=== PATIENT | female | born 1960 | race Caucasian/White ===

== ENCOUNTER → 2017-05-27 17:11 | Outpatient (CLI) | payer MEDICAID, SELFPAY ==
[2017-05-27 19:22] LABS: Amphetamine/Metha Screen,Urine Negative ng/mL (<1000); Barbiturates Screen,Urine Negative ng/mL (<200); Benzodiazepines Screen,Urine Positive ng/mL (200); Cannabinoid Screen,Urine Negative ng/mL (<50); Cocaine Screen,Urine Negative ng/g (<300); Methadone Screen,Urine Positive ng/mL (<300); Opiate Screen,Urine Positive ng/mL (<300); Phencyclidine Screen,Urine Negative ng/mL (<25)
== END ==
PROVIDERS: Visit Provider Emergency Medicine
DX: Z79.899 Other long term (current) drug therapy (principal)
CPT/HCPCS: 80305

== ENCOUNTER → 2017-08-06 11:25 | Outpatient (REF) | payer MEDICAID, SELFPAY ==
[2017-08-06 13:54] LABS: Amphetamine/Metha Screen,Urine Negative ng/mL (<1000); Barbiturates Screen,Urine Negative ng/mL (<200); Benzodiazepines Screen,Urine Positive ng/mL (200); Cannabinoid Screen,Urine Negative ng/mL (<50); Cocaine Screen,Urine Negative ng/g (<300); Methadone Screen,Urine Negative ng/mL (<300); Opiate Screen,Urine Positive ng/mL (<300); Phencyclidine Screen,Urine Negative ng/mL (<25)
== END ==
LOC: LAB 11:25
PROVIDERS: Visit Provider Emergency Medicine
DX: Z79.899 Other long term (current) drug therapy (principal)
CPT/HCPCS: 80305

== ENCOUNTER → 2017-09-04 11:30 | Outpatient (REF) | payer MEDICAID, SELFPAY ==
[2017-09-04 14:43] LABS: Amphetamine/Metha Screen,Urine Negative ng/mL (<1000); Barbiturates Screen,Urine Negative ng/mL (<200); Benzodiazepines Screen,Urine Positive ng/mL (200); Cannabinoid Screen,Urine Negative ng/mL (<50); Cocaine Screen,Urine Negative ng/g (<300); Methadone Screen,Urine Positive ng/mL (<300); Opiate Screen,Urine Positive ng/mL (<300); Phencyclidine Screen,Urine Negative ng/mL (<25)
== END ==
LOC: LAB 11:30
PROVIDERS: Visit Provider Emergency Medicine
DX: Z79.899 Other long term (current) drug therapy (principal)
CPT/HCPCS: 80305

== ENCOUNTER → 2017-10-02 14:59 | Outpatient (REF) | payer MEDICAID, SELFPAY ==
[2017-10-02 18:59] LABS: Amphetamine/Metha Screen,Urine Negative ng/mL (<1000); Barbiturates Screen,Urine Negative ng/mL (<200); Benzodiazepines Screen,Urine Positive ng/mL (200); Cannabinoid Screen,Urine Negative ng/mL (<50); Cocaine Screen,Urine Negative ng/g (<300); Methadone Screen,Urine Negative ng/mL (<300); Opiate Screen,Urine Positive ng/mL (<300); Phencyclidine Screen,Urine Negative ng/mL (<25)
== END ==
LOC: LAB 14:59
PROVIDERS: Visit Provider Emergency Medicine
DX: Z79.899 Other long term (current) drug therapy (principal)
CPT/HCPCS: 80305

== ENCOUNTER → 2017-10-30 16:17 | Outpatient (REF) | payer MEDICAID, SELFPAY ==
[2017-10-30 19:17] LABS: Amphetamine/Metha Screen,Urine Negative ng/mL (<1000); Barbiturates Screen,Urine Negative ng/mL (<200); Benzodiazepines Screen,Urine Positive ng/mL (200); Cannabinoid Screen,Urine Negative ng/mL (<50); Cocaine Screen,Urine Negative ng/g (<300); Methadone Screen,Urine Negative ng/mL (<300); Opiate Screen,Urine Positive ng/mL (<300); Phencyclidine Screen,Urine Negative ng/mL (<25)
== END ==
LOC: LAB 16:17
PROVIDERS: Visit Provider Emergency Medicine
DX: Z79.899 Other long term (current) drug therapy (principal)
CPT/HCPCS: 80305

== ENCOUNTER → 2017-12-04 13:08 | Outpatient (REF) | payer MEDICAID, SELFPAY ==
[2017-12-04 18:35] LABS: Amphetamine/Metha Screen,Urine Negative ng/mL (<1000); Barbiturates Screen,Urine Negative ng/mL (<200); Benzodiazepines Screen,Urine Positive ng/mL (<200); Cannabinoid Screen,Urine Negative ng/mL (<50); Cocaine Screen,Urine Negative ng/mL (<300); Methadone Screen,Urine Negative ng/mL (<300); Opiate Screen,Urine Positive ng/mL (<300); Phencyclidine Screen,Urine Negative ng/mL (<25)
== END ==
LOC: LAB 13:08
PROVIDERS: Visit Provider Emergency Medicine
DX: Z79.899 Other long term (current) drug therapy (principal)
CPT/HCPCS: 80305

== ENCOUNTER → 2018-01-03 13:04 | Outpatient (REF) | payer MEDICAID, SELFPAY ==
[2018-01-03 21:03] LABS: Amphetamine/Metha Screen,Urine Negative ng/mL (<1000); Barbiturates Screen,Urine Negative ng/mL (<200); Benzodiazepines Screen,Urine Positive ng/mL (<200); Cannabinoid Screen,Urine Negative ng/mL (<50); Cocaine Screen,Urine Negative ng/mL (<300); Methadone Screen,Urine Negative ng/mL (<300); Opiate Screen,Urine Positive ng/mL (<300); Phencyclidine Screen,Urine Negative ng/mL (<25)
== END ==
LOC: LAB 13:04
PROVIDERS: Visit Provider Emergency Medicine
DX: Z79.899 Other long term (current) drug therapy (principal)
CPT/HCPCS: 80305

== ENCOUNTER → 2018-02-03 13:26 | Outpatient (REF) | payer MEDICAID, SELFPAY ==
[2018-02-03 18:24] LABS: Amphetamine/Metha Screen,Urine Negative ng/mL (<1000); Barbiturates Screen,Urine Negative ng/mL (<200); Benzodiazepines Screen,Urine Positive ng/mL (<200); Cannabinoid Screen,Urine Negative ng/mL (<50); Cocaine Screen,Urine Negative ng/mL (<300); Methadone Screen,Urine Negative ng/mL (<300); Opiate Screen,Urine Positive ng/mL (<300); Phencyclidine Screen,Urine Negative ng/mL (<25)
== END ==
LOC: LAB 13:26
PROVIDERS: PCP Emergency Medicine; Visit Provider Emergency Medicine
DX: Z79.899 Other long term (current) drug therapy (principal)
CPT/HCPCS: 80305

== ENCOUNTER → 2018-03-04 13:22 | Outpatient (REF) | payer MEDICAID, SELFPAY ==
[2018-03-04 21:07] LABS: Amphetamine/Metha Screen,Urine Negative ng/mL (<1000); Barbiturates Screen,Urine Negative ng/mL (<200); Benzodiazepines Screen,Urine Positive ng/mL (<200); Cannabinoid Screen,Urine Negative ng/mL (<50); Cocaine Screen,Urine Negative ng/mL (<300); Methadone Screen,Urine Negative ng/mL (<300); Opiate Screen,Urine Positive ng/mL (<300); Phencyclidine Screen,Urine Negative ng/mL (<25)
== END ==
LOC: LAB 13:22
PROVIDERS: Visit Provider Emergency Medicine
DX: Z79.899 Other long term (current) drug therapy (principal)
CPT/HCPCS: 80305

== ENCOUNTER → 2018-04-02 18:29 | Outpatient (CLI) | payer MEDICAID, SELFPAY ==
[2018-04-02 21:59] LABS: Amphetamine/Metha Screen,Urine Negative ng/mL (<1000); Barbiturates Screen,Urine Negative ng/mL (<200); Benzodiazepines Screen,Urine Positive ng/mL (<200); Cannabinoid Screen,Urine Negative ng/mL (<50); Cocaine Screen,Urine Negative ng/mL (<300); Methadone Screen,Urine Negative ng/mL (<300); Opiate Screen,Urine Negative ng/mL (<300); Phencyclidine Screen,Urine Negative ng/mL (<25)
== END ==
PROVIDERS: Visit Provider Emergency Medicine
DX: Z79.899 Other long term (current) drug therapy (principal)
CPT/HCPCS: 80305

== ENCOUNTER → 2018-05-02 17:43 | Outpatient (CLI) | payer MEDICAID, SELFPAY ==
[2018-05-02 20:27] LABS: Amphetamine/Metha Screen,Urine Negative ng/mL (<1000); Barbiturates Screen,Urine Negative ng/mL (<200); Benzodiazepines Screen,Urine Positive ng/mL (<200); Cannabinoid Screen,Urine Negative ng/mL (<50); Cocaine Screen,Urine Negative ng/mL (<300); Methadone Screen,Urine Negative ng/mL (<300); Opiate Screen,Urine Negative ng/mL (<300); Phencyclidine Screen,Urine Negative ng/mL (<25)
[2018-05-10 14:00] LABS: Opiates Negative (Cutoff=100)
== END ==
PROVIDERS: Visit Provider Emergency Medicine
DX: Z79.899 Other long term (current) drug therapy (principal)
CPT/HCPCS: 80305; 80361; 80365; G0480

== ENCOUNTER → 2018-05-30 14:22 | Outpatient (CLI) | payer MEDICAID, SELFPAY ==
[2018-05-30 16:08] LABS: Amphetamine/Metha Screen,Urine Negative ng/mL (<1000); Barbiturates Screen,Urine Negative ng/mL (<200); Benzodiazepines Screen,Urine Positive ng/mL (<200); Cannabinoid Screen,Urine Negative ng/mL (<50); Cocaine Screen,Urine Negative ng/mL (<300); Methadone Screen,Urine Negative ng/mL (<300); Opiate Screen,Urine Negative ng/mL (<300); Phencyclidine Screen,Urine Negative ng/mL (<25)
[2018-06-09 08:22] LABS: Opiates Negative (Cutoff=100)
== END ==
PROVIDERS: Visit Provider Nurse Practitioner Family
DX: Z79.899 Other long term (current) drug therapy (principal)
CPT/HCPCS: 80305; 80361; 80365; G0480

== ENCOUNTER → 2018-07-01 14:43 | Outpatient (CLI) | payer MEDICAID, SELFPAY ==
[2018-07-01 15:29] LABS: Amphetamine/Metha Screen,Urine Negative ng/mL (<1000); Barbiturates Screen,Urine Negative ng/mL (<200); Benzodiazepines Screen,Urine Positive ng/mL (<200); Cannabinoid Screen,Urine Negative ng/mL (<50); Cocaine Screen,Urine Negative ng/mL (<300); Methadone Screen,Urine Negative ng/mL (<300); Opiate Screen,Urine Negative ng/mL (<300); Phencyclidine Screen,Urine Negative ng/mL (<25)
[2018-07-01 19:32] LABS: Basophils # 0.1 K/mm3 (0-0.2); Basophils % 0.8 % (0.1-2.0); Eosinophils # 0.1 K/mm3 (0.0-0.4); Eosinophils % 0.8 % (0.1-12.0); Hematocrit 45.9 % (37.0-47.0); Hemoglobin 14.9 g/dL (12.2-16.2); Lymphocytes # 2.1 K/mm3 (0.7-4.5); Lymphocytes % 24.6 % (10-50); Mean Corpuscular HGB Conc 32.4 g/dL (31.8-35.4); Mean Corpuscular Hemoglobin 28.2 pg (27.0-31.2); Mean Corpuscular Volume 87.1 fl (81-99); Monocytes # 0.5 K/mm3 (0.1-1.0); Monocytes % 5.7 % (1.7-9.3); Neutrophils # 5.7 K/mm3 (1.8-7.8); Neutrophils % 68.1 % (37.0-80.0); Platelet Count 513 K/mm3 (142-424); Red Blood Count 5.27 M/mm3 (4.20-5.40); Red Cell Distribution Width 13.6 % (11.5-17.5); White Blood Count 8.4 K/mm3 (4.8-10.8)
[2018-07-01 20:11] LABS: Alanine Aminotransferase 16 U/L (12-78); Albumin Level 4.1 gm/dL (3.4-5.0); Albumin/Globulin Ratio 1.1 (1.1-1.8); Alkaline Phosphatase 134 U/L (46-116); Anion Gap 15.9 mEq/L (5-15); Aspartate Amino Transferase 9 U/L (15-37); Bilirubin,Total 0.4 mg/dL (0.2-1.0); Blood Urea Nitrogen 7 mg/dL (7-18); Calcium 9.6 mg/dL (8.5-10.1); Carbon Dioxide 27 mmol/L (21.0-32.0); Chloride 101 mmol/L (98-107); Chol/HDL Ratio 7.2 (1-3.5); Cholesterol 311 mg/dL (140-200); Creatinine,Serum 0.72 mg/dL (0.55-1.02); Estimated Glomerular Filt Rate 83 ml/min (>60); GFR (African American) 100 ML/MIN (>60); Globulin 3.6 gm/dl (1.3-3.2); Glucose 93 mg/dL (74-106); HDL Cholesterol 43 mg/dL (29-89); LDL Cholesterol 240 mg/dL (0-130); Potassium 3.9 mmoL/L (3.5-5.1); Sodium 140 mmol/L (136-145); T4 (Thyroxine) 7.3 ug/dl (4.7-13.3); Total Protein,Serum 7.7 gm/dL (6.4-8.2); Triglycerides 142 mg/dL (30-200); VLDL Cholesterol 28 mg/dL (0-40)
== END ==
PROVIDERS: Visit Provider Emergency Medicine
DX: Z79.899 Other long term (current) drug therapy (principal)
CPT/HCPCS: 80053; 80061; 80305; 84436; 84443; 85025

== ENCOUNTER → 2018-07-01 18:15 | Outpatient (CLI) | payer MEDICAID, SELFPAY | PROVIDERS: Visit Provider Emergency Medicine | DX: R53.83 Other fatigue (principal); Z79.899 Other long term (current) drug therapy | CPT/HCPCS: 80053; 80061; 84436; 84443; 85025 ==

== ENCOUNTER → 2018-07-28 15:09 | Outpatient (CLI) | payer MEDICAID, SELFPAY ==
--- NOTE | 2018-07-28 15:12 | MR_ITS ---
MR lumbar spine wo con, MR 3-d myelogram/MRCP HISTORY: HX back surgery in 82. RT sided LBP. RT leg pain, numbness and tingling. ITS.REASON: back pain ORDERING PHYSICIAN: Govind Ingram MD PATIENT AGE: 57 years Comparison: MRI 11-28-16. TECHNIQUE: Standard multiplanar multiecho sequences are performed without contrast. 3-D MIP and myelographic images are also rendered and reviewed FINDINGS: Normal alignment. The spinal cord ends at the L1 level. L1-L2 and L2-L3 have an unremarkable appearance. L3-L4: Minimal bulging disc with type II endplate changes anteriorly with mild bilateral lateral recess narrowing from facet and ligamentum flavum hypertrophy. L4-L5: Bulging disc with mild facet and ligamentum flavum hypertrophy with linear increased T2 signal present in the posterior aspect of the disc consistent with an annular fissure similar to the previous exam with mild right paracentral disc protrusion broad-based unchanged. L5-S1: Degenerative disc disease with decrease in the disc space. The remaining isointense T1 and T2 signal in the left paracentral region of the anterior epidural space abutting the left S1 nerve root as before and may be related to a small disc osteophyte complex versus epidural fibrosis. Laminotomy defect noted at that level on the left. No extruded herniated disc or canal stenosis. Overall no significant change from 11/28/2016. IMPRESSION: L3-L4: Minimal bulging disc with type II endplate changes anteriorly with mild bilateral lateral recess narrowing from facet and ligamentum flavum hypertrophy. L4-L5: Bulging disc with mild facet and ligamentum flavum hypertrophy with linear increased T2 signal present in the posterior aspect of the disc consistent with an annular fissure similar to the previous exam with mild right paracentral disc protrusion broad-based unchanged. L5-S1: Degenerative disc disease with decrease in the disc space. The remaining isointense T1 and T2 signal in the left paracentral region of the anterior epidural space abutting the left S1 nerve root as before and may be related to a small disc osteophyte complex versus epidural fibrosis. Laminotomy defect noted at that level on the left. No extruded herniated disc or canal stenosis. Overall no significant change from 11/28/2016.
== END ==
PROVIDERS: PCP Emergency Medicine; Visit Provider Emergency Medicine
DX: G89.29 Other chronic pain (principal); M54.9 Dorsalgia, unspecified
CPT/HCPCS: 72148; 76376

== ENCOUNTER → 2018-10-27 17:28 | Outpatient (CLI) | payer MEDICAID, SELFPAY ==
[2018-10-27 18:45] LABS: Amphetamine/Metha Screen,Urine Negative ng/mL (<1000); Barbiturates Screen,Urine Negative ng/mL (<200); Benzodiazepines Screen,Urine Positive ng/mL (<200); Cannabinoid Screen,Urine Negative ng/mL (<50); Cocaine Screen,Urine Negative ng/mL (<300); Methadone Screen,Urine Negative ng/mL (<300); Opiate Screen,Urine Negative ng/mL (<300); Phencyclidine Screen,Urine Negative ng/mL (<25)
== END ==
PROVIDERS: Visit Provider Emergency Medicine
DX: Z79.899 Other long term (current) drug therapy (principal)
CPT/HCPCS: 80305

== ENCOUNTER → 2019-04-27 16:47 | Outpatient (CLI) | payer OTHER, SELFPAY ==
[2019-04-27 19:11] LABS: Amphetamine/Metha Screen,Urine Negative ng/mL (<1000); Barbiturates Screen,Urine Negative ng/mL (<200); Benzodiazepines Screen,Urine Positive ng/mL (<200); Cannabinoid Screen,Urine Negative ng/mL (<50); Cocaine Screen,Urine Negative ng/mL (<300); Methadone Screen,Urine Negative ng/mL (<300); Opiate Screen,Urine Positive ng/mL (<300); Phencyclidine Screen,Urine Negative ng/mL (<25)
== END ==
PROVIDERS: Visit Provider Emergency Medicine
DX: Z79.899 Other long term (current) drug therapy (principal)
CPT/HCPCS: 80305

== ENCOUNTER → 2019-08-25 11:14 | Outpatient (CLI) | payer OTHER, SELFPAY ==
[2019-08-25 11:46] LABS: Basophils # 0.1 K/mm3 (0-0.2); Basophils % 0.9 % (0.1-2.0); Eosinophils # 0.2 K/mm3 (0.0-0.4); Eosinophils % 2.1 % (0.1-12.0); Hematocrit 41.1 % (37.0-47.0); Hemoglobin 13.2 g/dL (12.2-16.2); Lymphocytes # 2.9 K/mm3 (0.7-4.5); Mean Corpuscular Hemoglobin 27.5 pg (27.0-31.2); Mean Corpuscular Volume 85.7 fl (81-99); Mean Platelet Volume 7.6 fl (7.4-10.4); Monocytes # 0.4 K/mm3 (0.1-1.0); Monocytes % 3.8 % (1.7-9.3); Neutrophils # 5.8 K/mm3 (1.8-7.8); Neutrophils % 62.1 % (37.0-80.0); Platelet Count 464 K/mm3 (142-424); Red Blood Count 4.79 M/mm3 (4.20-5.40); Red Cell Distribution Width 13.9 % (11.5-17.5); White Blood Count 9.4 K/mm3 (4.8-10.8)
[2019-08-25 12:28] LABS: Alanine Aminotransferase 17 U/L (12-78); Albumin Level 4.8 g/dl (3.5-5.0); Albumin/Globulin Ratio 1.7 (1.1-1.8); Alkaline Phosphatase 86 U/L (38-126); Anion Gap 12.6 mEq/L (5-15); Aspartate Amino Transferase 20 U/L (14-36); Bilirubin,Total 0.3 mg/dl (0.2-1.3); Blood Urea Nitrogen 12 mg/dl (7-17); Calcium 10.2 mg/dl (8.4-10.2); Carbon Dioxide 29 mmol/L (22.0-30.0); Chloride 99 mmol/L (98-107); Estimated Glomerular Filt Rate 102 ml/min (>60); GFR (African American) 123 ML/MIN (>60); Globulin 2.9 g/dL (1.3-3.2); Glucose 99 mg/dl (74-100); Potassium 4.6 mmoL/L (3.5-5.1); Sodium 136 mmol/L (136-145); Total Protein,Serum 7.7 g/dl (6.3-8.2)
[2019-08-25 13:44] LABS: Hemoglobin A1C 5.1 % (4.0-6.0)
[2019-08-26 07:33] LABS: Vitamin D 25 Hydroxy 11.3 ng/mL (30.0-100.0)
[2019-08-26 07:34] LABS: Hepatitis C Antibody <0.1 s/co ratio (0.0-0.9); Vitamin B12 816 pg/mL (232-1245)
[2019-08-26 15:59] LABS: Rapid Plasma Reagin Ab Titer Non Reactive (NonRea<1:1)
== END ==
PROVIDERS: Visit Provider Nurse Practitioner Family
DX: R20.2 Paresthesia of skin (principal); E55.9 Vitamin D deficiency, unspecified
CPT/HCPCS: 36415; 80053; 82607; 82652; 83036; 85025; 86592; 87380

== ENCOUNTER → 2019-09-03 14:04 | Outpatient (CLI) | payer OTHER, SELFPAY ==
--- NOTE | 2019-09-03 14:08 | CT_ITS ---
PROCEDURE: CT LUNG SCREENING CLINICAL INDICATION: CURRENT TOBACCO USE Forty-five pack-year smoking history, asymptomatic for lung cancer COMPARISON: No exams were available for comparison TECHNIQUE: The exam was performed on a GE Light Speed [address] scanner using 2.90 mGy CTDI. A low dose helical CT CHEST was performed on a multi-detector scanner. All CT scans at the facility use one or more dose reduction, viz: automated exposure control, ma/kV adjustment per patient size (including targeted exams where dose is matched to indication, i.e. head), or iterative reconstruction technique. The LDCT was performed in a facility that meets the criteria for the screening program. Data regarding this exam was submitted to ACR which is an approved registry. The order for this exam indicates that it came as a result of a lung cancer screening counseling shard decision-making visit that included all the elements required of such a visit including smoking cessation. The radiologist interpreting this exam meets the [facility] criteria for the LDCT lung cancer screening program. The exam is reported using the Lung-RADS classification scale and reported to the ACR registry. NOTE: This study was performed for the specific purposes of lung cancer screening and is not an alternative to diagnostic chest CT. RADIATION DOSE: CTDI vol(CT dose Index-volume) = 2.90mG DLP (Dose Length Product) = 103.68 mGcm Lung Rads Category: FINDINGS: Changes of COPD. Calcified granuloma right apex. There is an adjacent nodular density just superior to the granuloma measuring 8 mm. This could even be due to some adjacent scarring. 3 mm noncalcified nodule right middle lobe. 3 mm nodule right lower lobe posterior laterally at image number 45. Scattered calcified granulomas OTHER FINDINGS: Kyphosis of the thoracic spine with mild wedging of T5-T6 and T7 which may be chronic. Coronary artery calcifications. IMPRESSION: Lung rads category 3, probably benign. Recommend six-month CT follow-up without and with contrast Dictated by: Maoc Ordoñez MD 09/13/2019 10:44 Electronically signed by Maco Ordoñez MD in [place] 09/13/2019 10:44
--- NOTE | 2019-09-03 14:08 | XR_ITS ---
PROCEDURE: XR DEXA AXIAL SKELETON CLINICAL HISTORY: SCREENING COMPARISON: No exams were available for comparison FINDINGS: Left femoral neck density is 0.657 grams/centimeters sq with T-score -1.7 Right femoral neck density is 0.739 grams/centimeters sq with a T-score of -1.0. L1-L4 density has a bone density 0.805 grams/centimeters sq with T-score of -2.2. IMPRESSION: Osteopenia with moderate fracture risk. Treatment advised. Suggest follow-up exam in 2 years. Dictated by: Mcao Ordoñez MD 09/03/2019 15:24 Electronically signed by Maco Ordoñez MD in [place] 09/03/2019 15:24
--- NOTE | 2019-09-03 14:08 | MM_ITS ---
PROCEDURE: MM DIG SCREENING MAMM BI W/CAD Digital Breast Tomosynthesis Included CLINICAL INDICATION: SCREENING There is no personal or family history of breast cancer COMPARISON: Patient had previous mammograms at [facility] but they apparently have been purged TECHNIQUE: Standard CC and MLO images and 3D Tomosynthesis was obtained. R2 CAD reviewed. FINDINGS: Moderate fibroglandular densities are seen in the central portions and subareolar regions of both breasts. There are scattered benign-appearing calcifications in each breast. Stomal images were reviewed and there is no suspicious lesion in either breast. There are no suspicious microcalcifications. IMPRESSION: Moderate breast density with no suspicious lesions seen BI-RAD Category: 2 Benign Finding(s) FOLLOW-UP: 1YR 1 Year Follow-up (A letter has been sent to the patient regarding results of the study.) Dictated by: Dr. Juan Grullon MD 09/04/2019 11:[address] Juan Grullon MD in [place] 09/04/2019 11:58
== END ==
PROVIDERS: PCP Emergency Medicine; Visit Provider Nurse Practitioner Family
DX: Z12.31 Encounter for screening mammogram for malignant neoplasm of breast (principal); Z87.891 Personal history of nicotine dependence; Z12.2 Encounter for screening for malignant neoplasm of respiratory organs; Z13.820 Encounter for screening for osteoporosis; Z78.0 Asymptomatic menopausal state
CPT/HCPCS: 77063; 77067; 77080

== ENCOUNTER 2020-01-26 04:44 | Emergency (ER) | payer OTHER, SELFPAY ==
[2020-01-26 04:48] VITALS: BP 127/91; PULSE 101; RESP 16; TEMP 36.8; O2SAT 97; BMI 22.1
--- NOTE | 2020-01-26 05:09 | XR_ITS ---
PROCEDURE: XR CHEST 2V CLINICAL HISTORY: fall Posttraumatic pain COMPARISON: CR CXR CHEST(2 VIEWS-NOT PORTABLE) from 01/06/2016 CR CXR CHEST(2 VIEWS-NOT PORTABLE) from 06/22/2016 CR CXR CHEST(2 VIEWS-NOT PORTABLE) from 10/01/[address] LUNG SCREENING from 09/03/2019 FINDINGS: The cardiomediastinal silhouette and pulmonary vascularity are within normal limits. Calcified granulomas present in the right upper lobe. There is a faint nodular opacity in left upper lobe at the 1st interspace nonspecific possibly due to summation artifact. Cannot exclude developing nodule. Follow-up suggested. The remaining lungs are clear. There is mild thoracic and lumbar scoliosis convex left. IMPRESSION: Old granulomatous disease with possible new nodule in the left upper lobe. Follow-up suggested Dictated by: Maco Ordoñez MD 01/26/2020 06:05 Maco Ordoñez MD in [place] 01/26/2020 06:05
--- NOTE | 2020-01-26 05:09 | XR_ITS ---
PROCEDURE: XR FEMUR LT 2V CLINICAL INDICATION: fall Posttraumatic pain COMPARISON: CR XR PELVIS 1-2V from 01/26/2020 FINDINGS: No fracture or dislocation. No lytic or blastic change. There is normal mineralization. Mild osteoarthritic changes with bony hypertrophy of the acetabulum. Mild degenerative changes of the knee. Other findings:None. IMPRESSION: No acute findings. Dictated by: Maco Ordoñez MD 01/26/2020 06:00 Maco Ordoñez MD in [place] 01/26/2020 06:00
--- NOTE | 2020-01-26 05:14 | [facility].EDGENADL ---
ED Disposition Clinical Impression: Traumatic injury of hip Disposition: Home, Self-Care Condition on Discharge: Good Referrals: Govind Ingram MD [Primary Care Provider] - - Critical Care Critical Care Time: No Attestation: On 01/26/20, the high probability of a clinically significant, sudden or life threatening deterioration of the following system(s) required my full and direct attention, intervention and personal management. The time I documented below is in addition to time spent performing reported procedures but includes the following listed in this critical care notation. Medical Decision Making - Medical Records Medical records reviewed: Yes: I reviewed the patient's medical records. - Amos Inquiry Pt receiving controlled substance: No Vital Signs: 01/26/20 04:48 Temperature 98.2 F Temperature Source Oral Pulse Rate [Right Radial] 101 H Respiratory Rate 16 Blood Pressure [Right Arm] 127/91 H Blood Pressure Mean [Right Arm] 103 Blood Pressure Source [Right Arm] Automatic Cuff Blood Pressure Position [Right Arm] Supine 02 Sat by Pulse Oximetry 97 Oxygen Delivery Method Room Air Medical Decision Narrative: In summary 59-year-old female presents for fall. Patient had no loss consciousness, patient is Bradley head CT criteria does not require head imaging at this time. Nontender midline spine. Patient able to ambulate. Normal strength in lower extremities. Patient had x-rays performed. These returned negative for acute fracture. Patient was discharged home with return precautions, to follow-up with her primary care doctor for further work-up. General Adult HPI - General Chief complaint: Fall Stated complaint: AO 01/26/20 Back pain,left hip pain,left rib pain Time Seen by Provider: 01/26/20 05:15 Mode of Arrival: Ambulatory Limitations: No Limitations Description of Symptoms (Recalled from ER Triage Doc. by RN): Pt states she fell at home around 0300 and has c/o pain to left buttock/hip up to her mid back. Pt states she hit her head, denies LOC or pain to head or neck. - History of Present Illness HPI narrative: 59-year-old female past medical history of prior spinal surgery, IV opiate abuse, patient presenting for falls. Patient has had episode of fall this morning, from standing, did hit head but no loss of consciousness, patient is not on blood thinners. Patient complains of pain in her left posterior ribs and left hip. Patient has been able to ambulate, was able to ambulate into the ER this morning. - Related Data Home Medications Medication Instructions Recorded Confirmed aspirin 81 mg tablet,delayed 81 mg PO QDAY 05/27/17 12/11/19 release polyethylene glycol 3350 17 PO DAILY g 02/03/18 12/11/19 gram/dose oral powder duloxetine 60 mg capsule,delayed 60 mg PO DAILY cap 09/08/19 12/11/19 release ergocalciferol (vitamin D2) 1,250 50,000 unit PO QWEEK cap 09/08/19 12/11/19 mcg (50,000 unit) capsule methocarbamol 750 mg tablet 750 mg PO Q8H tab 09/08/19 12/11/19 pantoprazole 40 mg tablet,delayed 40 mg PO DAILY tab 09/08/19 12/11/19 release metoprolol tartrate 25 mg tablet 25 mg PO BID tab 12/11/19 12/11/19 Previous Rx's Medication Instructions Recorded atorvastatin 10 mg tablet 10 mg PO QHS #90 tab 07/02/18 quetiapine 100 mg tablet 100 mg PO QHS #30 tab 07/27/19 cyclobenzaprine 10 mg tablet 10 mg PO BID PRN #14 tab 10/13/19 diclofenac sodium 75 mg See Rx Instructions .ROUTE 10/20/19 tablet,delayed release .COMPLEX #90 unspecified diazepam 10 mg tablet 10 mg PO TID PRN #90 tab 12/11/19 gabapentin 800 mg tablet 800 mg PO TID #90 tab 12/11/19 hydroxyzine pamoate 50 mg capsule See Rx Instructions .ROUTE 01/06/20 .COMPLEX #90 unspecified Allergies Allergy/AdvReac Type Severity Reaction Status Date / Time No Known Allergies Allergy Verified 12/11/19 14:54 [facility] History - Hepatitis A Screen Drug use history?: No High risk sexual behavior
[2020-01-26 06:20] VITALS: BP 131/87; PULSE 91; RESP 16; TEMP 36.7; O2SAT 98
== END 2020-01-26 06:22 | disposition home or self-care (01) ==
PROVIDERS: Emergency Provider Emergency Medicine; PCP Emergency Medicine
DX: S70.02XA Contusion of left hip, initial encounter (principal); W01.0XXA Fall on same level from slipping, tripping and stumbling without subsequent striking against object, initial encounter; Y92.019 Unspecified place in single-family (private) house as the place of occurrence of the external cause; F41.8 Other specified anxiety disorders; E78.5 Hyperlipidemia, unspecified; K21.9 Gastro-esophageal reflux disease without esophagitis; F17.210 Nicotine dependence, cigarettes, uncomplicated
CPT/HCPCS: 71046; 72170; 73552; 99282

== ENCOUNTER → 2020-05-18 15:06 | Outpatient (CLI) | payer OTHER, SELFPAY ==
--- NOTE | 2020-05-18 15:06 | MR_ITS ---
PROCEDURE: MR LUMBAR SPINE WO CON 3D MR myelogram volume rendering image set included Referring Doctor: Govind Ingram Patient Age:59Y CLINICAL INDICATION: back pain low back pain with right hip pain tingling and numbness down both legs. The COMPARISON: MR SPLUMBWO MR lumbar spine wo con from 07/28/2018 TECHNIQUE: Standard multiplanar multiecho sequences are performed without contrast. 3-D MIP and myelographic images are also rendered and [id number] MR myelogram volume rendering image set included performed on MRI workstation by cytopathology technologist FINDINGS: Normal alignment in the sagittal view. On coronal image set note mild levoscoliosis related to disc space narrowing to the right at L1/2 L2/3 T11/12, T12/L1 disc intact and unremarkable. Perineal cyst fills the left foramen at T11-12 as was seen on 2019 study L1-L2 and L2-L3 disc all intact-. Disc height and hydration well maintained. No remarkable foraminal encroachment only borderline narrowing of these disc to the far right at L1/2, and-L2/3 best seen on coronal image set L2/3 there is mild facet arthropathy with and a small perineural cyst of at the left foramen. L1/2 a tiny perineural cyst or dilated nerve root sleeve at both right and left foramen noted. Above features unchanged since 2019 L3/4: Moderate bilateral facet hypertrophy, arthropathy. Note this slightly narrows the spinal canal with mild spinal stenosis. Minimal disc bulge most evident for foramen slightly contributes to the the central canal stenosis, and mild bilateral foraminal encroachment as well. Mild stable reactive endplate changes anteriorly at L3/4 again observed. L4/5 mild disc bulge most evident to the right only slightly indents the thecal sac to the right and yield some mild encroachment upon right foramen along with minor facet hypertrophy. Scant high signal and posterior disc margin less evident today. Unimpressive but a could reflect a tiny annular fissure. . More prominent facet hypertrophy in the left encroaches upon posterior aspect the left foramen. This along with the scant disc bulge yields more pronounced left foraminal encroachment L5/S1. Degenerative disc space narrowing.. Period mild hypertrophic/osteophytic ridging along posterior disc margin again seen. Yield small area minimal posterior spurring midline and to the left, which just touches, just abuts the left S1 nerve root sleeve at the left lateral recess.. This is similar to prior studies. Unchanged. Also would history states patient's symptoms are more pronounced on right than left. Minor Schmorl's node superior aspect of L5 to the left A small perineural cyst at right foramen also seen at this level The 3D MR myelogram image set shows generous caliber the thecal sac with mild tapering of the spinal canal L3/4-at reflecting mild spinal stenosis described above. At L4/5 scant tapering indentation upon spinal canal from features noted above but the perineural cysts at multiple levels are again incidentally noted IMPRESSION: 1..No significant change MRI lumbar spine since 2019 mild degenerative disc and hypertrophic facet changes along with mild levoscoliosis upper L-spine appears similar to previous study. 2... Mild degenerative changes as summarized below: L3/4. Mild Spinal Stenosis,-due mainly to the generous facet hypertrophy. A scant disc bulge most notable at foramen also contributes and the mild/moderate bilateral foraminal encroachment. L4/5. Mild disc bulge midline and to the right-- slightly effaces the thecal sac to the right. Minimal increased signal posterior disc margin conceivably could reflect small annular fissure but is unimpressive and if anything less evident [place]
--- NOTE | 2020-05-18 15:10 | CT_ITS ---
PROCEDURE: CT CHEST WO CON CLINICAL INDICATION: abn CT lung screen COMPARISON: No exams were available for comparison TECHNIQUE: Axial images obtained with sagittal and coronal reformats. All CT scans at the facility use one or more dose reduction, viz: automated exposure control, ma/kV adjustment per patient size (including targeted exams where dose is matched to indication, i.e. head), or iterative reconstruction technique. FINDINGS: HEART AND MEDIASTINAL STRUCTURES: Unremarkable. LUNGS AND PLEURAL SPACES: Granulomata in both lung mead. The possible noncalcified nodular density seen near the calcified granuloma right apex appears to be small area of pleural scarring. The 3 mm noncalcified nodule is again seen in the right middle lobe. No other noncalcified nodules are seen. There are additional calcified granulomas seen. BONY STRUCTURES: No acute bony abnormalities apparent. UPPER ABDOMEN: Unremarkable. ADDITIONAL FINDINGS: There is a small calcified right hilar node.. IMPRESSION: Evidence of old granulomatous disease, recommend a follow-up CT scan noncontrast in 1 year for continuing evaluation of the 3 mm nodule right middle lobe Dictated by: Dr. Juan Grullon MD 05/19/2020 09:33 Dr. Juan Grullon MD in [place] 05/19/2020 09:33
== END ==
PROVIDERS: PCP Emergency Medicine; Visit Provider Emergency Medicine
DX: R91.1 Solitary pulmonary nodule (principal); M54.9 Dorsalgia, unspecified; M54.5 Low back pain
CPT/HCPCS: 71250; 72148; 76376

== ENCOUNTER → 2020-08-08 14:54 | Outpatient (CLI) | payer OTHER, SELFPAY ==
[2020-08-08 15:57] LABS: Chloride 108 mmol/L (98-107)
[2020-08-08 15:58] LABS: Basophils % 0.3 % (0.1-2.0); Eosinophils # 0.2 K/mm3 (0.0-0.4); Eosinophils % 1.8 % (0.1-12.0); Hematocrit 38.5 % (37.0-47.0); Hemoglobin 12.5 g/dL (12.2-16.2); Lymphocytes # 2.3 K/mm3 (0.7-4.5); Lymphocytes % 21.4 % (10-50); Mean Corpuscular HGB Conc 32.4 g/dL (31.8-35.4); Mean Corpuscular Volume 80.2 fl (81-99); Mean Platelet Volume 8.1 fl (7.4-10.4); Monocytes # 0.5 K/mm3 (0.1-1.0); Monocytes % 4.5 % (1.7-9.3); Neutrophils # 7.7 K/mm3 (1.8-7.8); Platelet Count 444 K/mm3 (142-424); Potassium 4.7 mmoL/L (3.5-5.1); Red Cell Distribution Width 15.9 % (11.5-17.5); Sodium 139 mmol/L (136-145); White Blood Count 10.8 K/mm3 (4.8-10.8)
[2020-08-08 16:00] LABS: Alanine Aminotransferase 15 U/L (12-78); Anion Gap 13.7 mEq/L (5-15); Aspartate Amino Transferase 20 U/L (14-36); Blood Urea Nitrogen 18 mg/dl (7-17); Carbon Dioxide 22 mmol/L (22.0-30.0); Estimated Glomerular Filt Rate 73 ml/min (>60); GFR (African American) 88 ML/MIN (>60)
[2020-08-08 16:01] LABS: Albumin Level 4.5 g/dl (3.5-5.0); Albumin/Globulin Ratio 1.5 (1.1-1.8); Alkaline Phosphatase 102 U/L (38-126); Bilirubin,Total 0.5 mg/dl (0.2-1.3); Calcium 9.7 mg/dl (8.4-10.2); Glucose 106 mg/dl (74-100); HDL Cholesterol 56 mg/dl (40-60); Total Protein,Serum 7.5 g/dl (6.3-8.2)
[2020-08-08 16:12] LABS: Direct LDL Cholesterol 200.96 mg/dL (100-129)
[2020-08-08 16:13] LABS: Chol/HDL Ratio 6.5 (1-3.5); Cholesterol 362 mg/dl (140-200); Triglycerides 658 mg/dl (30-150)
[2020-08-08 16:19] LABS: Free T4 (Free Thyroxine) 0.59 ng/dl (0.78-2.19)
[2020-08-08 17:18] LABS: Amphetamine/Metha Screen,Urine Negative ng/ml (<1000)
[2020-08-08 17:19] LABS: Barbiturates Screen,Urine Negative ng/ml (<200); Benzodiazepines Screen,Urine Positive ng/ml (<200)
[2020-08-08 17:20] LABS: Cannabinoid Screen,Urine Negative ng/ml (<50)
[2020-08-08 17:21] LABS: Cocaine Screen,Urine Negative ng/ml (<300)
[2020-08-08 17:22] LABS: Methadone Screen,Urine Negative ng/ml (<300); Opiate Screen,Urine Negative ng/ml (<300)
[2020-08-08 17:23] LABS: Phencyclidine Screen,Urine Negative ng/ml (<25)
== END ==
PROVIDERS: Visit Provider Emergency Medicine
DX: E78.5 Hyperlipidemia, unspecified (principal); R53.83 Other fatigue; Z79.899 Other long term (current) drug therapy
CPT/HCPCS: 80053; 80061; 80305; 84439; 84443; 85025

== ENCOUNTER 2020-10-01 21:46 | Emergency (ER) | payer OTHER, SELFPAY ==
[2020-10-01 21:48] VITALS: BP 150/91; PULSE 86; RESP 14; TEMP 36.6; O2SAT 96; BMI 23.8
[2020-10-01 22:00] VITALS: BP 152/99; PULSE 91; RESP 16; O2SAT 97
--- NOTE | 2020-10-01 22:07 | XR_ITS ---
A PROCEDURE INFORMATION: Exam: XR Right Hip Exam date and time: 10/01/2020 10:07 PM Age: 59 years old Clinical indication: Injury or trauma; Blunt trauma (contusions or hematomas); Right; Patient HX: Fall, hitting head and hip TECHNIQUE: Imaging protocol: XR Right hip. Views: 2 or 3 views hip with pelvis when performed. COMPARISON: CR XR PELVIS 1-2V 01/26/2020 5:09 AM FINDINGS: Bones/joints: Unremarkable. No acute fracture. The joints are well aligned. Soft tissues: Unremarkable. IMPRESSION: No evidence for significant traumatic injury.
--- NOTE | 2020-10-01 22:07 | XR_ITS ---
PROCEDURE INFORMATION: Exam: XR Chest Exam date and time: 10/01/2020 10:07 PM Age: 59 years old Clinical indication: Smoker's cough; Patient HX: Fall, hitting head and hip TECHNIQUE: Imaging protocol: XR of the chest. Views: 1 view. COMPARISON: CT CHEST WO CON 05/18/2020 3:16 PM FINDINGS: Lungs: Unremarkable. No consolidation. There is no focal mass. Pleural spaces: There is no pneumothorax. There is no pleural effusion. Heart/Mediastinum: Unremarkable. No cardiomegaly. Bones/joints: There is no fracture present. IMPRESSION: 1. There is no significant traumatic injury to the chest. 2. No acute cardiac or pulmonary process.
--- NOTE | 2020-10-01 22:07 | CT_ITS ---
PROCEDURE INFORMATION: Exam: CT Head Without Contrast Exam date and time: 10/01/2020 10:07 PM Age: 59 years old Clinical indication: Injury or trauma; Blunt trauma (contusions or hematomas); Patient HX: Fall, hitting head and hip TECHNIQUE: Imaging protocol: Computed tomography of the head without contrast. Total images: 163 Radiation optimization: All CT scans at this facility use at least one of these dose optimization techniques: automated exposure control; mA and/or kV adjustment per patient size (includes targeted exams where dose is matched to clinical indication); or iterative reconstruction. COMPARISON: No relevant prior studies available. FINDINGS: Brain: Mild generalized atrophy consistent with the patient's advanced age. No extra-axial fluid collections. Mild prominence of the peripheral CSF spaces, felt to be related to generalized atrophy. No evidence of acute intracranial hemorrhage. Acevedo-white differentiation is well maintained. No CT evidence of large territory acute or subacute intracranial ischemia/infarct. No intracranial mass lesions. No midline shift or herniation. Cerebral ventricles: Moderate compensatory ventriculomegaly secondary to central atrophy. Mild normal variant lateral ventricular asymmetry, right larger than left. Bones/joints: The calvarium and visualized facial bones are intact. Paranasal sinuses: Mucosal thickening in the right maxillary sinus suggesting mild chronic sinus inflammatory disease. No fluid levels. The other paranasal sinuses are clear. Mastoid air cells: Visualized mastoid air cells are clear. Orbital cavity: Visualized orbital contents demonstrate no evidence of acute abnormality. Vasculature: Mild calcific atherosclerosis. No asymmetric vascular hyperdensities suggestive of thrombosis are identified. Soft tissues: The scalp and visualized soft tissues demonstrate no acute abnormality. Other findings: The IACs are grossly normal. The sella is grossly normal. IMPRESSION: 1. No acute intracranial process. No intracranial hemorrhage or mass effect. 2. Atrophy consistent with age. 3. Mild mucosal thickening in the right maxillary sinus suggesting mild chronic sinus inflammatory disease. 4. Mild calcific atherosclerosis.
--- NOTE | 2020-10-01 22:07 | CT_ITS ---
PROCEDURE INFORMATION: Exam: CT Cervical Spine Without Contrast Exam date and time: 10/01/2020 10:07 PM Age: 59 years old Clinical indication: Neck pain; Patient HX: Fall, hitting head and hip TECHNIQUE: Imaging protocol: Computed tomography images of the cervical spine without contrast. Total images: 206 Radiation optimization: All CT scans at this facility use at least one of these dose optimization techniques: automated exposure control; mA and/or kV adjustment per patient size (includes targeted exams where dose is matched to clinical indication); or iterative reconstruction. COMPARISON: No relevant prior studies available. FINDINGS: Bones/joints: Osteopenia. Craniocervical alignment is normal. The odontoid is intact. Moderate left-sided facet hypertrophic change C4-C5. No jumped or perched facets. No fractures. Slight 1.5 mm degenerative retrolisthesis C5-C6. No blastic or lytic lesions. No compressive soft disc protrusion or extrusion is evident by CT. Posterior mixed spondylotic protrusions are present at C5-C6 measuring 3 mm AP and C6-C7 measuring 2.5 mm AP. Discs/Spinal canal/Neural foramina: The occipital condyles are intact. Moderate degenerative sclerosis and spurring at the atlantodens interval. Moderate disc space narrowing and marginal spurring C5-C6 and C6-C7. Mild central canal stenosis C3-C4. Mild-moderate central canal stenosis C5-C6 and C6-C7. There is left foraminal stenosis which is moderate-severe at C5-C6 and moderate at C6-C7. There is right foraminal stenosis which is moderate at C6-C7. Dental: Moderate dental caries noted. Thyroid: 18 x 10 x 12 mm low-density nodule in the right thyroid lobe. Nonemergent thyroid ultrasound assessment recommended. Lungs: Granulomatous calcification in the right pulmonary apex. Soft tissues: Paraspinous soft tissues are unremarkable without significant soft tissue swelling or soft tissue hematoma. IMPRESSION: 1. No evidence of fracture or acute traumatic subluxation. 2. Osteopenia and degenerative changes as detailed above. Mild-moderate central canal stenosis at C5-C6 and C6-C7 and mild central stenosis at C3-C4. 3. Bilateral foraminal stenoses detailed above. 4. 18 mm nodule in the right thyroid lobe. Nonemergent thyroid ultrasound evaluation recommended. COMMENTS: Consistent with the [place] [employer]'s Incidental Findings Committee white paper (J Am Farideh Radiol 2015): In patients aged 35 years and older with an incidental thyroid nodule equal to or greater than 1.[address], MRI or extrathyroidal US, further evaluation with dedicated thyroid US is recommended for patients with normal life expectancy and without comorbidities. For smaller nodules without suspicious features, no further evaluation or follow up is recommended.
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
--- NOTE | 2020-10-01 22:35 | CT_ITS ---
PROCEDURE INFORMATION: Exam: CT Lumbar Spine Without Contrast Exam date and time: 10/01/2020 10:35 PM Age: 59 years old Clinical indication: Low back pain; Patient HX: Fall, hitting head and hip TECHNIQUE: Imaging protocol: Computed tomography images of the lumbar spine without contrast. Radiation optimization: All CT scans at this facility use at least one of these dose optimization techniques: automated exposure control; mA and/or kV adjustment per patient size (includes targeted exams where dose is matched to clinical indication); or iterative reconstruction. COMPARISON: [facility] CT LUMBAR SPINE W/O CONTRAST 06/24/2016 2:20 PM FINDINGS: Vertebrae: No acute fracture. Normal alignment. Discs/Spinal canal/Neural foramina: No significant disc protrusion. No severe spinal canal stenosis. No significant neural foraminal narrowing. Soft tissues: Unremarkable. IMPRESSION: There is no significant traumatic injury of the lumbar spine.
[2020-10-01 23:31] VITALS: BP 131/82; PULSE 78; RESP 17; O2SAT 97
[2020-10-02 00:06] VITALS: BP 134/72; PULSE 74; RESP 14; TEMP 36.7; O2SAT 97
== END 2020-10-02 00:08 | disposition home or self-care (01) ==
PROVIDERS: Emergency Provider Emergency Medicine; PCP Emergency Medicine
DX: S33.5XXA Sprain of ligaments of lumbar spine, initial encounter (principal); W01.0XXA Fall on same level from slipping, tripping and stumbling without subsequent striking against object, initial encounter; Y92.019 Unspecified place in single-family (private) house as the place of occurrence of the external cause; E11.9 Type 2 diabetes mellitus without complications; K21.9 Gastro-esophageal reflux disease without esophagitis; E55.9 Vitamin D deficiency, unspecified; E78.5 Hyperlipidemia, unspecified; Z79.899 Other long term (current) drug therapy
CPT/HCPCS: 70450; 71045; 72125; 72131; 73502; 96372; 99282

== ENCOUNTER 2021-03-14 16:10 | Emergency (ER) | payer OTHER, SELFPAY ==
[2021-03-14 16:11] VITALS: BP 150/99; PULSE 104; RESP 16; TEMP 36.6; O2SAT 98; BMI 24.3
--- NOTE | 2021-03-14 16:40 | CT_ITS ---
PROCEDURE INFORMATION: Exam: CT Cervical Spine Without Contrast Exam date and time: 03/14/2021 4:40 PM Age: 60 years old Clinical indication: Pain and condition or disease; Other: HX c-spine FX per PT; Patient HX: Neck pain, HX of c2 fracture TECHNIQUE: Imaging protocol: Computed tomography images of the cervical spine without contrast. Radiation optimization: All CT scans at this facility use at least one of these dose optimization techniques: automated exposure control; mA and/or kV adjustment per patient size (includes targeted exams where dose is matched to clinical indication); or iterative reconstruction. COMPARISON: CT CERVICAL SPINE WO CON 10/01/2020 10:45 PM FINDINGS: Bones/joints: Multilevel degenerative changes of the vertebra are present, as manifested by multilevel anterior osteophytes, endplate sclerosis, and multilevel posterior disc osteophyte complexes. There is no evidence of acutely displaced fractures. There is no evidence of joint dislocation. No aggressive osseous lesions. Discs/Spinal canal/Neural foramina: The spinal canal is patent. [id number] multilevel bony neural foraminal stenosis is appreciated. Thyroid: 1.2 cm right thyroid lobe nodule may be further evaluated with nonemergent ultrasound. Lungs: There are multiple punctate pulmonary parenchymal calcifications, consistent with remote granulomatous organism exposure. Lung apices are otherwise clear except for mild scarring. Soft tissues: Unremarkable. IMPRESSION: Negative for acute skeletal pathology. COMMENTS: Consistent with the [employer]'s Incidental Findings Committee white paper (J Am Farideh Radiol 2015): In patients aged 35 years and older with an incidental thyroid nodule equal to or greater than 1.[address], MRI or extrathyroidal US, further evaluation with dedicated thyroid US is recommended for patients with normal life expectancy and without comorbidities. For smaller nodules without suspicious features, no further evaluation or follow up is recommended.
--- NOTE | 2021-03-14 16:40 | CT_ITS ---
PROCEDURE INFORMATION: Exam: CT Head Without Contrast Exam date and time: 03/14/2021 4:40 PM Age: 60 years old Clinical indication: Other: HX of c-spine FX; Patient HX: Neck pain, HX of c2 fracture TECHNIQUE: Imaging protocol: Computed tomography of the head without contrast. Radiation optimization: All CT scans at this facility use at least one of these dose optimization techniques: automated exposure control; mA and/or kV adjustment per patient size (includes targeted exams where dose is matched to clinical indication); or iterative reconstruction. COMPARISON: CT HEAD/BRAIN WO CON 10/01/2020 10:41 PM FINDINGS: Brain: Age related brain involution is present. No acute intracranial hemorrhage, mass effect, midline shift, or brain herniation. Diffuse subcortical and periventricular white matter hypodensities are most in favor with chronic small vessel disease. Cerebral ventricles: There is ex vacuo ventriculomegaly. There is a normal-variant cavum septum pellucidum. Stable asymmetry of the lateral ventricles, right larger than left. This is most probably congenital in etiology. Paranasal sinuses: Visualized sinuses are unremarkable. No fluid levels. Mastoid air cells: Visualized mastoid air cells are well aerated. Orbital cavity: There is asymmetry of the lenses consistent with left intraocular lens prosthesis. Vasculature: Intracranial atherosclerosis is present. Bones/joints: Unremarkable. No acute fracture. Soft tissues: Unremarkable. IMPRESSION: Negative for acute intracranial pathology.
[2021-03-14 16:58] LABS: Basophils # 0.1 K/mm3 (0-0.2); Basophils % 0.9 % (0.1-2.0); Eosinophils # 0.2 K/mm3 (0.0-0.4); Eosinophils % 2.7 % (0.1-12.0); Hematocrit 40.9 % (37.0-47.0); Hemoglobin 13.5 g/dL (12.2-16.2); Lymphocytes # 1.8 K/mm3 (0.7-4.5); Lymphocytes % 21.5 % (10-50); Mean Corpuscular Hemoglobin 31.2 pg (27.0-31.2); Mean Corpuscular Volume 94.6 fl (81-99); Mean Platelet Volume 8.2 fl (7.4-10.4); Monocytes # 0.2 K/mm3 (0.1-1.0); Monocytes % 2.7 % (1.7-9.3); Neutrophils # 6.2 K/mm3 (1.8-7.8); Neutrophils % 72.3 % (37.0-80.0); Platelet Count 436 K/mm3 (142-424); Red Blood Count 4.32 M/mm3 (4.20-5.40); Red Cell Distribution Width 15.6 % (11.5-17.5); White Blood Count 8.6 K/mm3 (4.8-10.8)
--- NOTE | 2021-03-14 17:00 | PC.NURSE ---
pt in radiology
[2021-03-14 17:01] LABS: Chloride 105 mmol/L (98-107); Potassium 3.9 mmoL/L (3.5-5.1); Sodium 141 mmol/L (136-145)
[2021-03-14 17:03] LABS: Alanine Aminotransferase 42 U/L (12-78); Aspartate Amino Transferase 44 U/L (14-36); Blood Urea Nitrogen 9 mg/dl (7-17); Creatinine Clearance Estimated 67 mL/min (50-200); Estimated Glomerular Filt Rate 125 ml/min (>60); GFR (African American) 151 ML/MIN (>60)
[2021-03-14 17:04] LABS: Albumin Level 4.5 g/dl (3.5-5.0); Albumin/Globulin Ratio 1.3 (1.1-1.8); Alkaline Phosphatase 185 U/L (38-126); Anion Gap 16.9 mEq/L (5-15); Bilirubin,Total 0.5 mg/dl (0.2-1.3); Calcium 9.5 mg/dl (8.4-10.2); Carbon Dioxide 23 mmol/L (22.0-30.0); Globulin 3.4 g/dL (1.3-3.2); Glucose 104 mg/dl (74-100); Total Protein,Serum 7.9 g/dl (6.3-8.2)
[2021-03-14 17:05] LABS: Prothrombin Time 11.3 seconds (10.1-12.5)
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
[2021-03-14 17:35] LABS: Thyroid Stimulating Hormone 1.82 uIU/mL (0.465-4.68)
[2021-03-14 18:35] LABS: Microscopic, Urine URINE MICROSCOPIC (MICROSCOPIC)
[2021-03-14 18:46] LABS: Appearance,Urine CLEAR (Clear); Bilirubin,Urine Negative (Negative); Blood, Urine Negative (Negative); Color,Urine YELLOW (Yellow); Glucose,Urine (UA) Negative (Negative); Ketones,Urine Negative (Negative); Leukocyte Esterase,Urine 2+ (Negative); Nitrate,Urine Negative (Negative); Protein,Urine Negative (Negative); Specific Gravity, Urine 1.015 (1.005-1.030); Urobilinogen,Urine 0.2 EU/dl (0.2)
[2021-03-14 19:03] LABS: Bacteria,Urine 3+ /lpf
[2021-03-14 19:39] VITALS: BP 145/88; PULSE 84; RESP 20; TEMP 36.8; O2SAT 96
== END 2021-03-14 19:47 | disposition home or self-care (01) ==
PROVIDERS: Emergency Provider Student in an Organized Health Care Education/Training Program; PCP Emergency Medicine
DX: M54.12 Radiculopathy, cervical region (principal); E11.9 Type 2 diabetes mellitus without complications; E78.5 Hyperlipidemia, unspecified; F41.8 Other specified anxiety disorders; K21.9 Gastro-esophageal reflux disease without esophagitis; F19.11 Other psychoactive substance abuse, in remission; F17.210 Nicotine dependence, cigarettes, uncomplicated; Z79.899 Other long term (current) drug therapy
CPT/HCPCS: 70450; 72125; 80053; 81001; 84443; 85025; 85610; 87086; 99283

== ENCOUNTER → 2021-03-27 13:47 | Outpatient (CLI) | payer OTHER, SELFPAY ==
[2021-03-27 14:26] LABS: Barbiturates Screen,Urine Negative ng/ml (<200)
[2021-03-27 14:27] LABS: Amphetamine/Metha Screen,Urine Negative ng/ml (<1000); Benzodiazepines Screen,Urine Positive ng/ml (<200)
[2021-03-27 14:28] LABS: Methadone Screen,Urine Negative ng/ml (<300)
[2021-03-27 14:29] LABS: Cannabinoid Screen,Urine Negative ng/ml (<50); Cocaine Screen,Urine Negative ng/ml (<300)
[2021-03-27 14:31] LABS: Opiate Screen,Urine Positive ng/ml (<300); Phencyclidine Screen,Urine Negative ng/ml (<25)
== END ==
PROVIDERS: Visit Provider Emergency Medicine
DX: Z79.899 Other long term (current) drug therapy (principal)
CPT/HCPCS: 80305

== ENCOUNTER → 2021-05-23 17:52 | Outpatient (CLI) | payer OTHER, SELFPAY ==
[2021-05-23 19:23] LABS: Amphetamine/Metha Screen,Urine Negative ng/ml (<1000)
[2021-05-23 19:24] LABS: Barbiturates Screen,Urine Negative ng/ml (<200)
[2021-05-23 19:25] LABS: Cannabinoid Screen,Urine Negative ng/ml (<50); Cocaine Screen,Urine Negative ng/ml (<300)
[2021-05-23 19:26] LABS: Opiate Screen,Urine Negative ng/ml (<300)
[2021-05-23 19:27] LABS: Phencyclidine Screen,Urine Negative ng/ml (<25)
[2021-05-23 19:39] LABS: Methadone Screen,Urine Negative ng/ml (<300)
[2021-05-23 20:18] LABS: Benzodiazepines Screen,Urine Positive ng/ml (<200)
== END ==
PROVIDERS: Visit Provider Emergency Medicine
DX: M54.12 Radiculopathy, cervical region (principal)
CPT/HCPCS: 80305

== ENCOUNTER → 2022-07-25 11:08 | Outpatient (CLI) | payer OTHER, SELFPAY ==
[2022-07-25 14:08] LABS: Phencyclidine Screen,Urine Negative ng/ml (<25)
[2022-07-25 14:21] LABS: Amphetamine/Metha Screen,Urine Negative ng/ml (<1000)
[2022-07-25 14:22] LABS: Cannabinoid Screen,Urine Negative ng/ml (<50)
[2022-07-25 14:23] LABS: Barbiturates Screen,Urine Negative ng/ml (<200); Benzodiazepines Screen,Urine Positive ng/ml (<200)
[2022-07-25 14:24] LABS: Opiate Screen,Urine Negative ng/ml (<300)
[2022-07-25 14:25] LABS: Cocaine Screen,Urine Negative ng/ml (<300); Methadone Screen,Urine Negative ng/ml (<300)
== END ==
PROVIDERS: PCP Emergency Medicine; Visit Provider Emergency Medicine
DX: Z79.899 Other long term (current) drug therapy (principal)
CPT/HCPCS: 80305

== ENCOUNTER → 2022-10-01 09:15 | Outpatient (CLI) | payer OTHER, SELFPAY ==
[2022-10-01 14:56] LABS: Alanine Aminotransferase 74 U/L (12-78); Albumin Level 4.2 g/dl (3.5-5.0); Albumin/Globulin Ratio 1.4 (1.1-1.8); Alkaline Phosphatase 211 U/L (38-126); Anion Gap 18.5 mEq/L (5-15); Aspartate Amino Transferase 200 U/L (14-36); Blood Urea Nitrogen 11 mg/dl (7-17); Calcium 8.3 mg/dl (8.4-10.2); Carbon Dioxide 26 mmol/L (22.0-30.0); Chloride 97 mmol/L (98-107); Chol/HDL Ratio 2.6 (1-3.5); Cholesterol 272 mg/dl (140-200); Estimated Glomerular Filt Rate 125 ml/min (>60); GFR (African American) 151 ML/MIN (>60); Glucose 103 mg/dl (74-100); HDL Cholesterol 103 mg/dl (40-60); Potassium 3.5 mmoL/L (3.5-5.1); Sodium 138 mmol/L (136-145); Total Protein,Serum 7.2 g/dl (6.3-8.2); Triglycerides 232 mg/dl (30-150); VLDL Cholesterol 46 mg/dL (0-40)
[2022-10-01 15:00] LABS: Basophils % 0.4 % (0.1-2.0); Eosinophils % 0.3 % (0.1-12.0); Hematocrit 40.8 % (37.0-47.0); Hemoglobin 13.1 g/dL (12.2-16.2); Lymphocytes # 1.6 K/mm3 (0.7-4.5); Lymphocytes % 19.3 % (10-50); Mean Corpuscular HGB Conc 32.1 g/dL (31.8-35.4); Mean Corpuscular Hemoglobin 32.3 pg (27.0-31.2); Mean Corpuscular Volume 100.9 fl (81-99); Mean Platelet Volume 8.8 fl (7.4-10.4); Monocytes # 0.6 K/mm3 (0.1-1.0); Monocytes % 7.2 % (1.7-9.3); Neutrophils # 6.1 K/mm3 (1.8-7.8); Neutrophils % 72.8 % (37.0-80.0); Platelet Count 425 K/mm3 (142-424); Red Blood Count 4.05 M/mm3 (4.20-5.40); Red Cell Distribution Width 15.4 % (11.5-17.5); White Blood Count 8.4 K/mm3 (4.8-10.8)
[2022-10-01 15:07] LABS: Direct LDL Cholesterol 166.43 mg/dL (100-129)
[2022-10-01 15:17] LABS: Free T4 (Free Thyroxine) 0.74 ng/dl (0.78-2.19)
[2022-10-01 15:18] LABS: 25-OH Vitamin D, Total 16.2 ng/mL (30-100)
[2022-10-01 15:26] LABS: Thyroid Stimulating Hormone 1.38 uIU/mL (0.465-4.68)
[2022-10-01 16:43] LABS: Amphetamine/Metha Screen,Urine Negative ng/ml (<1000)
[2022-10-01 16:45] LABS: Barbiturates Screen,Urine Negative ng/ml (<200)
[2022-10-01 16:46] LABS: Benzodiazepines Screen,Urine Positive ng/ml (<200); Cannabinoid Screen,Urine Negative ng/ml (<50)
[2022-10-01 16:47] LABS: Cocaine Screen,Urine Negative ng/ml (<300); Methadone Screen,Urine Negative ng/ml (<300)
[2022-10-01 16:48] LABS: Opiate Screen,Urine Negative ng/ml (<300)
[2022-10-01 16:49] LABS: Phencyclidine Screen,Urine Negative ng/ml (<25)
== END ==
PROVIDERS: PCP Emergency Medicine; Visit Provider Emergency Medicine
DX: E55.9 Vitamin D deficiency, unspecified (principal); E66.3 Overweight; Z68.25 Body mass index [BMI] 25.0-25.9, adult; Z79.899 Other long term (current) drug therapy
CPT/HCPCS: 80053; 80061; 80305; 82306; 84439; 84443; 85025

== ENCOUNTER → 2022-11-21 15:55 | Outpatient (CLI) | payer OTHER, SELFPAY ==
--- NOTE | 2022-11-21 15:56 | MM_ITS ---
PROCEDURE INFORMATION: Exam: MG Bilateral Screening 3D Mammography Exam date and time: 11/21/2022 3:45 PM Age: 61 years old Clinical indication: Screening examination TECHNIQUE: Imaging protocol: Bilateral Screening tomosynthesis and 2D mammography including computer-aided detection (CAD) when performed. COMPARISON: MG MM DIG SCREENING MAMM BI W/CAD 09/03/2019 2:35 PM FINDINGS: MAMMOGRAPHY: Breast composition: The breasts are heterogeneously dense, which may obscure small masses. Mass: None. Architectural distortion: None. Calcifications: No suspicious calcifications. Asymmetric density: None. Skin thickening: None. Axillary adenopathy: None. IMPRESSION: No mammographic evidence of malignancy. Annual screening is recommended unless otherwise clinically indicated. ASSESSMENT: BI-RADS Category 1: Negative
[2022-11-23 14:28] LABS: HBsAg Screen Negative (Negative); HCV Ab Non Reactive (Non Reactive); Hep A Ab, IGM Negative (Negative); Hep B Core Ab, IgM Negative (Negative)
== END ==
PROVIDERS: PCP Emergency Medicine; Visit Provider Emergency Medicine
DX: Z12.31 Encounter for screening mammogram for malignant neoplasm of breast (principal); R74.8 Abnormal levels of other serum enzymes
CPT/HCPCS: 36415; 77063; 77067; 80074

== ENCOUNTER 2022-12-17 16:16 | Emergency (ER) | payer OTHER, SELFPAY ==
[2022-12-17 16:18] VITALS: BP 133/96; PULSE 92; RESP 18; TEMP 36.7; O2SAT 95; BMI 22.8
[2022-12-17 16:30] VITALS: BP 121/81; PULSE 89; O2SAT 94
[2022-12-17 17:00] VITALS: BP 123/86; PULSE 88; O2SAT 95
--- NOTE | 2022-12-17 17:19 | XR_ITS ---
PROCEDURE INFORMATION: Exam: XR Right Elbow Exam date and time: 12/17/2022 5:21 PM Age: 62 years old Clinical indication: Injury or trauma; Fall; Blunt trauma (contusions or hematomas); Elbow; Right; Additional info: Fall, elbow injury TECHNIQUE: Imaging protocol: Radiologic exam of the right elbow. Views: 3 or more views. COMPARISON: No relevant prior studies available. FINDINGS: Bones/joints: A possible nondisplaced fracture through the lateral portion of the radial head with intra-articular extension noted. No other fracture seen. Joint effusion noted. Soft tissues: Normal. IMPRESSION: Nondisplaced radial head fracture with associated joint effusion.
--- NOTE | 2022-12-17 17:20 | HMH.EDGENADL ---
Discharge Plan Disposition Patient Disposition: Home, Self-Care Prescriptions Prescriptions: No Action aspirin [Adult Low Dose Aspirin] 81 mg tablet,delayed release (DR/EC) 81 mg PO QDAY diazepam 10 mg tablet 10 mg PO TID Qty: 90 1RF tramadol 50 mg tablet 50 mg PO TID PRN (Reason: breakthrough pain) Qty: 90 0RF peg 3350-electrolytes [Golytely] 236-22.74-6.74 -5.86 gram recon soln 240 ml PO Q10M Qty: 4000 0RF Rx Instructions: until fecal effluent is clear atorvastatin 80 mg tablet 80 mg PO HS alendronate 70 mg tablet See Rx Instructions .ROUTE .COMPLEX Rx Instructions: TAKE 1 TABLET BY MOUTH EVERY WEEK quetiapine 200 mg tablet See Rx Instructions .ROUTE .COMPLEX Rx Instructions: TAKE 1 TABLET BY MOUTH AT BEDTIME omeprazole 40 mg capsule,delayed release(DR/EC) See Rx Instructions .ROUTE .COMPLEX Rx Instructions: TAKE 1 CAPSULE BY MOUTH ONCE DAILY methocarbamol 750 mg tablet See Rx Instructions .ROUTE .COMPLEX Rx Instructions: TAKE 1 TABLET BY MOUTH THREE TIMES DAILY NEEDED FOR MUSCLE PAIN MAY CAUSE DROWSINESS oxycodone-acetaminophen [Percocet] 10-325 mg tablet 1 tab PO QID gabapentin 800 mg tablet 800 mg PO TID diclofenac sodium 75 mg tablet,delayed release (DR/EC) See Rx Instructions .ROUTE .COMPLEX Rx Instructions: TAKE ONE TABLET BY MOUTH EVERY DAY WITH FOOD ergocalciferol (vitamin D2) [Vitamin D2] 1,250 mcg (50,000 unit) capsule See Rx Instructions .ROUTE .COMPLEX Rx Instructions: TAKE 1 CAPSULE BY MOUTH ONCE WEEKLY DIRECTED duloxetine 60 mg capsule,delayed release(DR/EC) See Rx Instructions .ROUTE .COMPLEX Rx Instructions: TAKE 1 CAPSULE BY MOUTH ONCE DAILY Referrals Follow up/Referrals: Ambrosio Mattson DO [Staff Physician] - See instructions (1 week, radial head fracture for discussion about mobilization and PT ) Govind Ingram MD [Primary Care Provider] - See instructions Clinical Impressions Clinical Impression: Contusion of elbow, right, Abrasion of elbow, Closed fracture of radial head Discharge ED Provider: Pat Avelar General Adult HPI General Chief complaint: Fall Stated complaint: ao 12/17@1500 FELL INJURED r ELBOW Time Seen by Provider: 12/17/22 17:12 Mode of Arrival: Wheelchair Source of Information: Patient Limitations: No Limitations Description of Symptoms (Recalled from ER Triage Doc. by RN): Patient states she was taking candelaria to her neighbor when she fell and injured her right elbow. History of Present Illness HPI narrative: Patient is a 62-year-old female with history of chronic back pain who is taking candelaria to her neighbor when she fell and landed directly onto her right elbow. She denies any syncopal episode or anything that preceded this regarding medical condition. No chest pain shortness of breath she states this was purely mechanical. She only injured the right elbow. Denies any shoulder humerus forearm wrist hand head neck chest abdomen pelvis or the long bone pain. She has some abrasions on her skin and she is up-to-date on her tetanus having had 1 in the last year and a half. Related Data Home Medications Medication Instructions Recorded Confirmed aspirin 81 mg tablet,delayed 81 mg PO QDAY Blood Thinner 05/27/17 12/11/22 release (Adult Low Dose Aspirin) alendronate 70 mg tablet See Rx Instructions .Route 12/11/22 12/11/22 .COMPLEX bone strength atorvastatin 80 mg tablet 80 mg PO HS Cholesterol 12/11/22 12/11/22 diclofenac sodium 75 mg See Rx Instructions .Route 12/11/22 12/11/22 tablet,delayed release .COMPLEX muscle duloxetine 60 mg capsule,delayed See Rx Instructions .Route 12/11/22 12/11/22 release .COMPLEX Depression ergocalciferol (vitamin D2) 1,250 See Rx Instructions .Route 12/11/22 12/11/22 mcg (50,000 unit) capsule (Vitamin .COMPLEX Supplement D2) gabapentin 800 mg tablet 800 mg PO TID Pain
--- NOTE | 2022-12-17 17:25 | PC.NURSE ---
pt resting in bed nothing needed at this time,call light at bs
[2022-12-17 18:14] VITALS: BP 141/87; PULSE 84; RESP 20; TEMP 36.8; O2SAT 95
== END 2022-12-17 18:15 | disposition home or self-care (01) ==
PROVIDERS: Emergency Provider Student in an Organized Health Care Education/Training Program; PCP Emergency Medicine
DX: S52.121A Displaced fracture of head of right radius, initial encounter for closed fracture (principal); M25.421 Effusion, right elbow; F41.9 Anxiety disorder, unspecified; E87.5 Hyperkalemia; F17.210 Nicotine dependence, cigarettes, uncomplicated; W19.XXXA Unspecified fall, initial encounter
CPT/HCPCS: 73080; 99283

== ENCOUNTER → 2023-01-23 14:32 | Outpatient (CLI) | payer OTHER, SELFPAY ==
--- NOTE | 2023-01-23 14:39 | XR_ITS ---
FINAL REPORT TECHNIQUE: 3 views right elbow CLINICAL HISTORY: Rt elbow fx COMPARISON: 12/17/2022 FINDINGS: RIGHT ELBOW: 3 views of the right elbow reveal a subacute fracture of the radial head. No new bony abnormality is identified. IMPRESSION: Subacute fracture radial head, with no new bony abnormality identified. Reviewed, Interpreted and Dictated by Joaquin Soliz III, MD Transcribed by Sandra Cortez Authenticated and [facility]
== END ==
PROVIDERS: PCP Emergency Medicine; Visit Provider Orthopaedic Surgery
DX: M25.521 Pain in right elbow (principal); S52.121A Displaced fracture of head of right radius, initial encounter for closed fracture
CPT/HCPCS: 73080

== ENCOUNTER → 2023-01-25 23:45 | Outpatient (CLI) | payer OTHER, SELFPAY ==
[2023-01-25 18:58] LABS: Amphetamine/Metha Screen,Urine Negative ng/ml (<1000)
[2023-01-25 19:00] LABS: Cannabinoid Screen,Urine Negative ng/ml (<50)
[2023-01-25 19:01] LABS: Barbiturates Screen,Urine Negative ng/ml (<200); Benzodiazepines Screen,Urine Positive ng/ml (<200)
[2023-01-25 19:02] LABS: Cocaine Screen,Urine Negative ng/ml (<300); Opiate Screen,Urine Positive ng/ml (<300)
[2023-01-25 19:03] LABS: Methadone Screen,Urine Negative ng/ml (<300)
[2023-01-25 19:04] LABS: Phencyclidine Screen,Urine Negative ng/ml (<25)
== END ==
PROVIDERS: PCP Emergency Medicine; Visit Provider Emergency Medicine
DX: Z79.899 Other long term (current) drug therapy (principal)
CPT/HCPCS: 80305

== ENCOUNTER → 2023-03-29 12:00 | Outpatient (CLI) | payer OTHER, SELFPAY ==
[2023-03-29 20:57] LABS: Barbiturates Screen,Urine Negative ng/ml (<200)
[2023-03-29 20:58] LABS: Benzodiazepines Screen,Urine Positive ng/ml (<200)
[2023-03-29 20:59] LABS: Cannabinoid Screen,Urine Negative ng/ml (<50); Cocaine Screen,Urine Negative ng/ml (<300)
[2023-03-29 21:09] LABS: Methadone Screen,Urine Negative ng/ml (<300); Opiate Screen,Urine Negative ng/ml (<300)
[2023-03-29 21:10] LABS: Phencyclidine Screen,Urine Negative ng/ml (<25)
[2023-04-03 22:20] LABS: Amphetamines Negative (Cutoff=500)
== END ==
PROVIDERS: PCP Emergency Medicine; Visit Provider Emergency Medicine
DX: G89.29 Other chronic pain (principal)
CPT/HCPCS: 80305; 80324

== ENCOUNTER 2023-05-28 18:09 | Outpatient (CLI) | payer OTHER, SELFPAY ==
[2023-05-28 19:18] LABS: Basophils # 0.1 K/mm3 (0-0.2); Basophils % 0.5 % (0.1-2.0); Eosinophils # 0.1 K/mm3 (0.0-0.4); Eosinophils % 0.4 % (0.1-12.0); Hematocrit 43.8 % (37.0-47.0); Hemoglobin 14.7 g/dL (12.2-16.2); Lymphocytes # 2.1 K/mm3 (0.7-4.5); Lymphocytes % 15.5 % (10-50); Mean Corpuscular HGB Conc 33.5 g/dL (31.8-35.4); Mean Corpuscular Hemoglobin 29.9 pg (27.0-31.2); Mean Corpuscular Volume 89.1 fl (81-99); Monocytes # 0.6 K/mm3 (0.1-1.0); Neutrophils # 10.9 K/mm3 (1.8-7.8); Neutrophils % 79.6 % (37.0-80.0); Platelet Count 518 K/mm3 (142-424); Red Blood Count 4.92 M/mm3 (4.20-5.40); Red Cell Distribution Width 13.7 % (11.5-17.5); White Blood Count 13.7 K/mm3 (4.8-10.8)
[2023-05-28 19:21] LABS: Alanine Aminotransferase 21 U/L (12-78); Albumin Level 4.9 g/dl (3.5-5.0); Albumin/Globulin Ratio 1.4 (1.1-1.8); Alkaline Phosphatase 122 U/L (38-126); Anion Gap 15.2 mEq/L (5-15); Aspartate Amino Transferase 31 U/L (14-36); Bilirubin,Total 0.5 mg/dl (0.2-1.3); Blood Urea Nitrogen 7 mg/dl (7-17); Carbon Dioxide 21 mmol/L (22.0-30.0); Chloride 102 mmol/L (98-107); Estimated Glomerular Filt Rate 101 ml/min (>60); GFR (African American) 122 ML/MIN (>60); Globulin 3.4 g/dL (1.3-3.2); Glucose 110 mg/dl (74-100); HDL Cholesterol 41 mg/dl (40-60); Potassium 4.2 mmoL/L (3.5-5.1); Sodium 134 mmol/L (136-145); Total Protein,Serum 8.3 g/dl (6.3-8.2); Triglycerides 320 mg/dl (30-150); VLDL Cholesterol 64 mg/dL (0-40)
[2023-05-28 19:38] LABS: Chol/HDL Ratio 9.5 (1-3.5); Cholesterol 389 mg/dl (140-200)
[2023-05-28 19:39] LABS: 25-OH Vitamin D, Total 42.7 ng/mL (30-100)
[2023-05-28 19:52] LABS: Thyroid Stimulating Hormone 1.08 uIU/mL (0.465-4.68)
[2023-05-28 20:00] LABS: Microalbumin/Creatinine Ratio 28.7
[2023-05-28 20:05] LABS: Creatinine,Urine Random 235 mg/dL (Not Estab.)
[2023-05-28 20:28] LABS: Vitamin B12 898 pg/mL (239-931)
[2023-05-28 20:44] LABS: Barbiturates Screen,Urine Negative ng/ml (<200); Benzodiazepines Screen,Urine Positive ng/ml (<200); Cannabinoid Screen,Urine Negative ng/ml (<50); Cocaine Screen,Urine Negative ng/ml (<300); Methadone Screen,Urine Negative ng/ml (<300); Opiate Screen,Urine Negative ng/ml (<300); Phencyclidine Screen,Urine Negative ng/ml (<25)
[2023-05-28 20:53] LABS: Hemoglobin A1C 5.3 % (4.0-6.0)
[2023-05-29 14:51] LABS: Amphetamine/Metha Screen,Urine Negative ng/ml (<1000)
[2023-05-30 07:59] LABS: HBsAg Screen Negative (Negative); HCV Ab Non Reactive (Non Reactive); Hep A Ab, IGM Negative (Negative); Hep B Core Ab, IgM Negative (Negative)
[2023-05-30 13:21] LABS: HIV Screen 4th Generation wRfx Non Reactive (Non Reactive)
== END 2023-05-28 23:59 ==
LOC: LAB.DROPOF 18:09
PROVIDERS: PCP Internal Medicine; Visit Provider Internal Medicine
DX: R53.83 Other fatigue (principal); M85.89 Other specified disorders of bone density and structure, multiple sites; Z79.899 Other long term (current) drug therapy; F19.21 Other psychoactive substance dependence, in remission; Z11.4 Encounter for screening for human immunodeficiency virus [HIV]; E78.5 Hyperlipidemia, unspecified; F17.210 Nicotine dependence, cigarettes, uncomplicated
CPT/HCPCS: 80053; 80061; 80074; 80307; 82043; 82306; 82570; 82607; 82746; 83036; 84443; 85025; 86703; G0432

== ENCOUNTER 2023-06-07 14:05 | Outpatient (CLI) | payer OTHER, SELFPAY ==
--- NOTE | 2023-06-07 14:05 | US_ITS ---
FINAL REPORT CLINICAL HISTORY: thyroid nodule COMPARISON: None FINDINGS: THYROID ULTRASOUND: The right lobe of the thyroid measures 4.2 x 2 x 1.7 cm in size. There is a 26 x 18 x 11 mm cystic and solid isoechoic mass in the right lobe, a TI-RADS category 2 nodule. There is a second nodule measuring 10 x 9 x 6 cm in size, also cystic and solid, and isoechoic. This is also a TI-RADS category 2 nodule. The left lobe of the thyroid gland measures 3.7 x 0.9 x 1.3 cm in size. There is a 5 x 5 x 4 mm cystic and solid nodule, isoechoic, also a TI-RADS category 2 nodule. The isthmus of the thyroid gland measures 1.5 mm in thickness. IMPRESSION: Several thyroid nodules present as described above, all TI-RADS category 2 nodules, which do not require follow-up at this time. Reviewed, Interpreted and Dictated by Joaquin Soliz III, MD Transcribed by Sandra Cortez Authenticated and [facility]
== END 2023-06-07 23:59 ==
LOC: RAD 14:05
PROVIDERS: PCP Internal Medicine; Visit Provider Internal Medicine
DX: E04.1 Nontoxic single thyroid nodule (principal)
CPT/HCPCS: 76536

== ENCOUNTER 2023-07-15 11:29 | Outpatient (CLI) | payer OTHER, SELFPAY ==
--- NOTE | 2023-07-15 11:29 | NM_ITS ---
APPROVED REPORT Exam: Nuclear Stress Test Indication: SOB, Abnormal EKG, HTN, High cholesterol, Tobacco use, Family history Patient Location: Outpatient Stress Tech: Ivy Dos Santos [place] Tech:Glenda Harris, ARRT, RT (R)(N) Ht: 5 ft 8 in Wt: 148 lbs Bra Size: 36C HR: 76 bpm BP: 132/97 mmHg BSA: 1.80 m2 Rhythm: NSR TID: 1.13 BMI: 22.5 History: SOB, Abnormal EKG, HTN, High cholesterol, Tobacco use, Family history Procedure: Patient received 0.4 mg of intravenous Lexiscan, resting heart rate 76 bpm, resting blood pressure 132/97 mmHg, with Lexiscan maximum heart rate achieved was 98 bpm which is % of the maximum predicted heart rate and blood pressure was 142/91 mmHg. With Lexiscan, patient denied any complaint of chest pain. Cardiac Stress and Resting SPECT Images: Cardiac Stress and Resting SPECT images were obtained using technetium 99m Myoview 31.2 mCi stress and 10.04 mCi at rest. Resting and stress imaging in supine and prone positions demonstrate a medium sized, severe, fixed perfusion defect in the basal to mid inferior LV wall. There is also a small sized moderate, reversible perfusion defect in the LV apical region. Gated imaging demonstrates low normal LV systolic function. There is moderate hypokinesis of the basal to mid inferior LV wall. LVEF is calculated at 51%. Conclusion: Medium sized, severe, fixed perfusion defect in the basal to mid inferior LV wall. Small sized moderate, reversible perfusion defect in the LV apical region. This finding is suggestive of reversible ischemia. Gated imaging demonstrates low normal LV systolic function. There is moderate hypokinesis of the basal to mid inferior LV wall. LVEF is calculated at 51%. Electronically signed by : Moon Pérez MD 07/16/2023 11:38:52
--- NOTE | 2023-07-15 11:32 | CA_ITS ---
APPROVED REPORT EXAM: Comprehensive 2D, Doppler, and color-flow Echocardiogram Supervisor Marble: Shahida Almonte RDCS Ht: 5 ft 8 in Wt: 163lbs BSA: 1.87 BP: 118/76 mmHg Indications: ABN EKG,HTN,HLP M-Mode Dimensions RVDd 2.34 cm (0.9-2.6) LA Diam 2.76 cm (1.9-4.0) LVDd 4.99 cm (3.5-5.7) LVDs 3.78 cm (3.5-5.7) IVSd 0.70 cm (0.6-1.1) PWd 0.60 cm (0.6-1.1) EF (Teich) 48.00% FS 24.20% EDV (Teich) 117.70 mL ESV (Teich) 61.20 mL LV Diastology E Decel Time 210 (160-240 msec) E/A Ratio 0.6 Mitral Valve MV E Max Elbert. 41.0 (40-130 cm/s) MV A Velocity 72.0 (40-130 cm/s) E/A Ratio 0.57 MV PHT 62.0 ms Left Ventricle The left ventricle is normal size. The left ventricular systolic function is normal. The left ventricular ejection fraction is within the normal range. There is increased LV wall thickness. There is normal LV segmental wall motion. Transmitral Doppler flow pattern suggests impaired LV relaxation. LVEF is 55%. Right Ventricle The right ventricle is mildly dilated. The right ventricular systolic function is normal. Atria The left atrium size is normal. The right atrium size is normal. There is no Doppler evidence of interatrial shunt. Aortic Valve The aortic valve is mildly thickened. There is no aortic valvular stenosis. No aortic regurgitation is present. Mitral Valve The mitral valve is normal in structure. No evidence of mitral valve stenosis. There is no mitral valve regurgitation noted. Tricuspid Valve The tricuspid valve leaflets are thin and pliable. Trace tricuspid regurgitation. RVSP is normal. Pulmonic Valve The pulmonary valve is normal in structure. Trace pulmonic regurgitation. Great Vessels The aortic root is normal in size. The ascending aorta is mildly dilated, measuring 3.8 cm in diameter. IVC is normal in size and collapses >50% with inspiration. Pericardium There is no pericardial effusion. Other Information Study Quality: Fair Conclusion Normal biventricular systolic function. Mild RV dilation. No significant valvular stenosis or regurgitation. Electronically signed by : Moon Pérez MD 07/17/2023 12:09:23
[2023-07-15] MEDS: ISOTOPE MYOVIEW (PER STUDY) 1 DOSE IV (13:09)
[2023-07-15] MEDS: REGADENOSON 0.4MG/5ML SYRINGE 0.400000000000000022 MG IV (13:09)
[2023-07-15] MEDS: SODIUM CHLORIDE 0.9% 10ML SYR (RAD ONLY) 10 ML IV ×2 (13:09)
--- NOTE | 2023-07-15 13:14 | CA_ITS ---
APPROVED REPORT Exam: Pharmacologic Technologist: Ivy Hancock, Ht: 5 ft 8 in Wt: 163 lbs BSA: 1.87 m2 HR: 84 bpm BP: 132/97 mmHg Rhythm: NSR Medical History Medications: Omeprazole,,,,, Aspirin,,,,, Gabapentin,,,,, Diazepam,,,,, Atorvastatin,,,,, PERCOCET,,,,, DulOXETINE,,,,, Quetiapine,,,,, Ezetimibe,,,,, Stress Test Details Test: LEXISCAN Reason for pharmacologic stress test: physical limitation. HR Resting HR: 76 bpm Max Heart Rate (APMHR): 156 bpm Max HR Achieved: 98 bpm Target HR (85% APMHR): 133 bpm % of APMHR: 63 Recovery HR: 89 bpm BP Resting BP: 132.0/97.0 mmHg Max BP: 142.0/91.0 mmHg Recovery BP: 121.0/98.0 mmHg ECG Resting ECG: NSR Stress ECG: No significant ST changes Arrhythmia: None Clinical Exercise duration: 04:01 min Highest Stage Achieved: Exercise capacity: 1.0 METs Stress ECG Conclusion Symptoms: None Arrhythmias/Ectopy: None ST-T Changes: No significant ST changes Conclusion: Unremarkable Lexiscan stress test. Myoview images reported separately. Test Summary REST . . . . . . . Resting REST 07:37 . . 76 . 132/ 97 . . Stage 1 01:00 . . 96 . . . . Stage 2 01:00 . . 89 . 142/ 91 . . Stage 3 01:00 . . 89 . 124/ 90 . . Stage 4 01:00 . . 89 . 130/ 97 . . Stage 4 01:01 . . 89 . 130/ 97 . Stop exercise at 04:01 RECOVERY 01:00 . . 86 . . . . RECOVERY 01:50 . . 96 . 121/ 98 . . Electronically signed by : Moon Pérez MD 07/16/2023 11:36:22
== END 2023-07-15 23:59 ==
LOC: RAD 11:29
PROVIDERS: PCP Internal Medicine; Visit Provider Nurse Practitioner Family
DX: R06.09 Other forms of dyspnea (principal); R94.31 Abnormal electrocardiogram [ECG] [EKG]; I10 Essential (primary) hypertension; E78.5 Hyperlipidemia, unspecified; F19.90 Other psychoactive substance use, unspecified, uncomplicated; F41.9 Anxiety disorder, unspecified; Z72.0 Tobacco use
CPT/HCPCS: 78452; 93017; 93018; 93306; A9502; J2785

== ENCOUNTER 2023-07-18 21:51 | Outpatient (CLI) | payer OTHER, SELFPAY ==
[2023-07-18 19:04] LABS: Basophils # 0.1 K/mm3 (0-0.2); Basophils % 1.3 % (0.1-2.0); Eosinophils # 0.1 K/mm3 (0.0-0.4); Eosinophils % 1.1 % (0.1-12.0); Hematocrit 43.6 % (37.0-47.0); Hemoglobin 13.7 g/dL (12.2-16.2); Lymphocytes # 2.6 K/mm3 (0.7-4.5); Lymphocytes % 28.3 % (10-50); Mean Corpuscular HGB Conc 31.4 g/dL (31.8-35.4); Mean Corpuscular Hemoglobin 29.8 pg (27.0-31.2); Mean Corpuscular Volume 94.8 fl (81-99); Mean Platelet Volume 9.5 fl (7.4-10.4); Monocytes # 0.5 K/mm3 (0.1-1.0); Neutrophils # 5.7 K/mm3 (1.8-7.8); Neutrophils % 63.3 % (37.0-80.0); Platelet Count 438 K/mm3 (142-424); Red Cell Distribution Width 13.7 % (11.5-17.5)
[2023-07-18 20:02] LABS: Alanine Aminotransferase 38 U/L (12-78); Albumin Level 4.2 g/dl (3.5-5.0); Albumin/Globulin Ratio 1.4 (1.1-1.8); Alkaline Phosphatase 131 U/L (38-126); Anion Gap 11.6 mEq/L (5-15); Aspartate Amino Transferase 63 U/L (14-36); Bilirubin,Total 0.4 mg/dl (0.2-1.3); Blood Urea Nitrogen 8 mg/dl (7-17); Calcium 9.8 mg/dl (8.4-10.2); Carbon Dioxide 27 mmol/L (22.0-30.0); Chloride 105 mmol/L (98-107); Chol/HDL Ratio 6.4 (1-3.5); Cholesterol 274 mg/dl (140-200); Estimated Glomerular Filt Rate 101 ml/min (>60); GFR (African American) 122 ML/MIN (>60); Glucose 93 mg/dl (74-100); HDL Cholesterol 43 mg/dl (40-60); Potassium 4.6 mmoL/L (3.5-5.1); Sodium 139 mmol/L (136-145); Total Protein,Serum 7.2 g/dl (6.3-8.2)
[2023-07-18 20:04] LABS: Triglycerides 404 mg/dl (30-150)
[2023-07-18 20:13] LABS: Direct LDL Cholesterol 148.13 mg/dL (100-129)
[2023-07-20 18:55] LABS: Peripheral Smear Review Scanned Result
== END 2023-07-18 23:59 ==
LOC: LAB.DROPOF 21:51
PROVIDERS: PCP Internal Medicine; Visit Provider Internal Medicine
DX: E78.5 Hyperlipidemia, unspecified (principal); I10 Essential (primary) hypertension; F17.210 Nicotine dependence, cigarettes, uncomplicated
CPT/HCPCS: 80053; 80061; 85025

== ENCOUNTER 2023-08-05 09:00 | Day surgery (SDC) | payer OTHER, SELFPAY ==
[2023-08-05] VITALS (15 sets, daily range): BP systolic 119–140; BP diastolic 64–99; PULSE 61–89; RESP 18; TEMP 36.6–36.9; O2SAT 94–99; BMI 24.6
--- NOTE | 2023-08-05 07:06 | IR_ITS ---
APPROVED REPORT Patient Location: Outpatient [facility] Car Operator: MIKALA Shah RT (R) PROCEDURES Selective coronary angiogram Drug-eluting stent deployment to the proximal mid and distal dominant right coronary artery in a contiguous manner INDICATION Coronary artery disease, Abnormal Myoview with inferior ischemia, Angina pectoris Informed consent was obtained prior to the procedure. COMPLICATIONS NONE Estimated Blood Loss: LESS THAN 10 ML TECHNIQUE One percent lidocaine used to anesthetize the right anterior aspect of the wrist. The right radial artery was accessed via the Seldinger technique. A 6 Divehi sheath was placed in the right radial artery. 2.5 mg of Verapamil, 800 mcg of nitroglycerin, 1mg Lidocaine and 5000 U Heparin were given through the arterial sheath. The papa catheter was also used to perform selective coronary angiogram. At the end of the procedure therapeutic heparin was administered giving a therapeutic ACT and the guide catheter was placed in the right coronary followed by Choice PT extra-support wire. A 3.5 x 30 mm Quinton frontier stent was deployed at 16 boni in the distal segment reducing the stenosis. An additional 3.5 x 18 mm Nabeel frontier stent was placed proximal to the for stent yet still overlapping the stent deployed at 20 boni. The balloon was advanced and deployed at 20 boni throughout the 38 mm stent. JOSE-3 flow was present before and after the procedure. After achieving excellent intragraft results apparatus was removed the sheath was removed good hemostasis was achieved using TR banding patient was transferred to the postop holding in stable condition ANGIOGRAPHIC RESULTS The left main artery Normal The left anterior descending artery Has proximal concentric 30 to 40% stenosis with mid vessel 20 and 30% stenoses The circumflex artery Large nondominant and proximally normal. The first obtuse marginal artery has proximal 30% stenosis with a second obtuse marginal artery has a proximal 30 to 40% stenosis and mid vessel 20% stenoses The right coronary artery Is a dominant vessel and has a hazy 50% stenosis in the proximal segment followed by mid vessel 50% followed by an additional 60 to 70% mid vessel concentric stenosis The CORLEY ventriculogram reveals Was not performed The left ventricular end-diastolic pressure Was not measured IMPRESSION Hemodynamically severe disease in a large dominant right coronary with successful stenting reducing the hemodynamically severe disease to 0% with 2 contiguous drug-eluting stents Persistent moderate stenosis in the proximal LAD with moderate stenosis in a moderate-sized second obtuse marginal artery PLAN 1. Dual antiplatelet therapy 2. LDL less than 55 to be achieved with high intensity statin 3. Avoidance of tobacco products 4. Risk factor modification 5. Cardiac rehabilitation Electronically signed by : Javier Regalado MD 08/05/2023 10:44:27
[2023-08-05 09:29] LABS: Basophils # 0.1 K/mm3 (0-0.2); Basophils % 1.5 % (0.1-2.0); Eosinophils # 0.1 K/mm3 (0.0-0.4); Eosinophils % 1.5 % (0.1-12.0); Hematocrit 44.7 % (37.0-47.0); Hemoglobin 14.6 g/dL (12.2-16.2); Mean Corpuscular HGB Conc 32.7 g/dL (31.8-35.4); Mean Corpuscular Hemoglobin 29.6 pg (27.0-31.2); Mean Corpuscular Volume 90.4 fl (81-99); Mean Platelet Volume 7.7 fl (7.4-10.4); Monocytes # 0.4 K/mm3 (0.1-1.0); Monocytes % 4.3 % (1.7-9.3); Neutrophils # 6.7 K/mm3 (1.8-7.8); Neutrophils % 71.7 % (37.0-80.0); Platelet Count 540 K/mm3 (142-424); Red Blood Count 4.94 M/mm3 (4.20-5.40); Red Cell Distribution Width 13.7 % (11.5-17.5); White Blood Count 9.3 K/mm3 (4.8-10.8)
[2023-08-05 09:38] LABS: Anion Gap 14.1 mEq/L (5-15); Blood Urea Nitrogen 8 mg/dl (7-17); Calcium 9.6 mg/dl (8.4-10.2); Carbon Dioxide 25 mmol/L (22.0-30.0); Chloride 102 mmol/L (98-107); Creatinine Clearance Estimated 66 mL/min (50-200); Estimated Glomerular Filt Rate 84 ml/min (>60); GFR (African American) 102 ML/MIN (>60); Glucose 111 mg/dl (74-100); Potassium 4.1 mmoL/L (3.5-5.1); Sodium 137 mmol/L (136-145)
[2023-08-05] MEDS: VERAPAMIL 2.5MG/ML 2ML VIAL 2.5 MG IV (10:10)
[2023-08-05] MEDS: diphenhydrAMINE 50MG/ML VIAL 50 MG IV (10:10)
[2023-08-05] MEDS: HEPARIN 1,000 UNITS/500ML NS (CATH LAB) 3000 UNIT IV (10:11)
[2023-08-05] MEDS: NITROGLYCERIN 800MCG/8ML SYR (CATH LAB) 800 MCG IA (10:11)
[2023-08-05] MEDS: LIDOCAINE 1% 10ML MDV 20 ML IJ (10:11)
[2023-08-05] MEDS: 0.9 % SODIUM CHLORIDE 500 ML 25 ML IV (10:11)
[2023-08-05] MEDS: HEPARIN 1,000 UNITS/ML 10ML VIAL (CATH LAB) 10000 UNIT IV (10:36)
[2023-08-05] MEDS: FENTANYL 100MCG/2ML VIAL 50 MCG IV (10:40)
[2023-08-05] MEDS: MIDAZOLAM HCL 1MG/1ML 5ML VIAL 1 MG IV (10:40)
[2023-08-05] MEDS: PRASUGREL 10MG TAB 60 MG PO (10:58)
[2023-08-05] MEDS: IOPAMIDOL-370 (76%);100ML BOTTLE 70 ML IV (11:03)
[2023-08-05 11:05] LABS: CATHL Activated Clotting Time 254 SEC (74-125)
== END 2023-08-05 14:46 | disposition home or self-care (01) ==
LOC: CATHLAB 09:00
PROVIDERS: PCP Internal Medicine; Visit Provider Internal Medicine
DX: I25.118 Atherosclerotic heart disease of native coronary artery with other forms of angina pectoris (principal); R94.39 Abnormal result of other cardiovascular function study; Z79.899 Other long term (current) drug therapy; I10 Essential (primary) hypertension; E78.5 Hyperlipidemia, unspecified; F17.210 Nicotine dependence, cigarettes, uncomplicated; F10.11 Alcohol abuse, in remission; Z82.49 Family history of ischemic heart disease and other diseases of the circulatory system
CPT/HCPCS: 80048; 85025; 85347; 92928; 93454; 99152; C1725; C1769; C1876; C9600; J1644; Q9967

== ENCOUNTER 2023-08-12 10:12 | Outpatient (CLI) | payer OTHER, SELFPAY ==
[2023-08-12 10:52] LABS: Basophils # 0.1 K/mm3 (0-0.2); Basophils % 1.2 % (0.1-2.0); Eosinophils % 0.3 % (0.1-12.0); Hematocrit 41.8 % (37.0-47.0); Hemoglobin 13.6 g/dL (12.2-16.2); Lymphocytes # 1.4 K/mm3 (0.7-4.5); Lymphocytes % 17.4 % (10-50); Mean Corpuscular HGB Conc 32.6 g/dL (31.8-35.4); Mean Corpuscular Hemoglobin 30.1 pg (27.0-31.2); Mean Corpuscular Volume 92.3 fl (81-99); Mean Platelet Volume 7.6 fl (7.4-10.4); Monocytes # 0.4 K/mm3 (0.1-1.0); Monocytes % 4.7 % (1.7-9.3); Neutrophils # 5.9 K/mm3 (1.8-7.8); Neutrophils % 76.3 % (37.0-80.0); Platelet Count 456 K/mm3 (142-424); Red Blood Count 4.52 M/mm3 (4.20-5.40); Red Cell Distribution Width 13.9 % (11.5-17.5); White Blood Count 7.8 K/mm3 (4.8-10.8)
[2023-08-12 11:12] LABS: Alanine Aminotransferase 25 U/L (12-78); Albumin Level 4.8 g/dl (3.5-5.0); Alkaline Phosphatase 98 U/L (38-126); Anion Gap 12.3 mEq/L (5-15); Aspartate Amino Transferase 33 U/L (14-36); Bilirubin,Direct 0.3 mg/dl (0.0-0.4); Bilirubin,Indirect 0.3 mg/dL (0.0-0.9); Bilirubin,Total 0.6 mg/dl (0.2-1.3); Bilirubin,Unconjugated 0.2 mg/dL (0.0-1.1); Blood Urea Nitrogen 15 mg/dl (7-17); Calcium 10.2 mg/dl (8.4-10.2); Carbon Dioxide 24 mmol/L (22.0-30.0); Chloride 105 mmol/L (98-107); Estimated Glomerular Filt Rate 84 ml/min (>60); GFR (African American) 102 ML/MIN (>60); Glucose 103 mg/dl (74-100); HDL Cholesterol 43 mg/dl (40-60); Magnesium 1.9 mg/dl (1.6-2.3); Potassium 4.3 mmoL/L (3.5-5.1); Sodium 137 mmol/L (136-145); Total Protein,Serum 7.8 g/dl (6.3-8.2); Triglycerides 235 mg/dl (30-150); VLDL Cholesterol 47 mg/dL (0-40)
[2023-08-12 11:23] LABS: Direct LDL Cholesterol 204.15 mg/dL (100-129)
[2023-08-12 11:27] LABS: Free T4 (Free Thyroxine) 0.81 ng/dl (0.78-2.19)
[2023-08-12 11:31] LABS: Chol/HDL Ratio 8.2 (1-3.5); Cholesterol 352 mg/dl (140-200)
[2023-08-12 11:42] LABS: Thyroid Stimulating Hormone 0.83 uIU/mL (0.465-4.68)
== END 2023-08-12 23:59 ==
PROVIDERS: PCP Internal Medicine; Visit Provider Nurse Practitioner
DX: I11.9 Hypertensive heart disease without heart failure (principal); I25.10 Atherosclerotic heart disease of native coronary artery without angina pectoris; R06.09 Other forms of dyspnea; E78.2 Mixed hyperlipidemia; F17.210 Nicotine dependence, cigarettes, uncomplicated
CPT/HCPCS: 36415; 80048; 80061; 80076; 83735; 84439; 84443; 85025

== ENCOUNTER 2023-08-14 09:44 | Outpatient (POV) | payer OTHER, SELFPAY ==
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
[2023-08-14 10:58] VITALS: BP 105/73; PULSE 88; RESP 18; O2SAT 94; BMI 23.1
== END 2023-08-14 23:59 | disposition home or self-care (01) ==
PROVIDERS: PCP Internal Medicine; Visit Provider Nurse Practitioner Family
DX: G89.4 Chronic pain syndrome (principal); M50.30 Other cervical disc degeneration, unspecified cervical region; M54.16 Radiculopathy, lumbar region
CPT/HCPCS: 99202; G0463

== ENCOUNTER 2023-08-16 15:14 | Emergency (ER) | payer OTHER, SELFPAY ==
[2023-08-16] VITALS (8 sets, daily range): BP systolic 138–155; BP diastolic 89–102; PULSE 63–72; RESP 13–16; TEMP 36.6; O2SAT 96–98; BMI 23.1
--- NOTE | 2023-08-16 15:14 | ECG_ITS ---
APPROVED REPORT Exam: Resting ECG HR:72 bpm ECG Measurements Heart Rate 72 AXES PA 172 P 59 QRSd 87 QRS -17 QT 378 T 21 QTc 403 Conclusion SINUS RHYTHM MINIMAL VOLTAGE CRITERIA FOR LVH, CONSIDER NORMAL VARIANT [MEETS CRITERIA IN ONE OF: R(aVL), S(V1), R(V5), R(V5/V6)+S(V1)] INFERIOR MYOCARDIAL INFARCTION , PROBABLY OLD [40+ ms Q WAVE AND/OR ST/T ABNORMALITY IN II/aVF] ABNORMAL ECG Electronically signed by : TRACY RAMIREZ, 08/22/2023 15:28:03
--- NOTE | 2023-08-16 15:32 | CT_ITS ---
FINAL REPORT TECHNIQUE: NASCET technique utilized for stenosis evaluation. CLINICAL HISTORY: L sided numbness/tingling for 9 days COMPARISON: None FINDINGS: There is moderate hypertrophic change in the cervical spine particularly at the C5-6 and C6-7 levels, with posterior osteophytes in the midline at C5-6. There is a nodule in the right lobe of the thyroid gland which measures up to 2.3 cm in size. RIGHT CAROTID: No significant stenosis is seen of the cervical common or internal carotid artery. LEFT CAROTID: No significant stenosis seen of the cervical common or internal carotid artery. VERTEBRALS: The vertebrals are patent. No significant stenosis is present. IMPRESSION: No significant arterial abnormality. Degenerative change in the cervical spine as described above. Nodule in the right lobe of the thyroid gland, measuring 2.3 cm in greatest dimension. Would suggest thyroid ultrasound for further evaluation if clinically indicated. Reviewed, Interpreted and Dictated by Gregor Welsh MD Transcribed by Sandra Cortez Authenticated and [facility]
--- NOTE | 2023-08-16 15:32 | CT_ITS ---
FINAL REPORT TECHNIQUE: Thin section axial CT with contrast with 3D multiplanar reconstruction CLINICAL HISTORY: L sided numbness/tingling for 9 days, chest pain FINDINGS: Pulmonary vessels enhance in normal fashion without evidence of embolism. Thoracic aorta shows no dissection or aneurysm.. The aortic arch great vessel branches are widely patent. No pulmonary mass or infiltrate is present. There is evidence of old calcified granulomatous disease There is no significant pleural effusion. There is no significant pericardial effusion. No mediastinal or hilar adenopathy is present. IMPRESSION: 1. No evidence of pulmonary embolism 2. No evidence of thoracic aortic aneurysm or dissection Authenticated and [facility]
--- NOTE | 2023-08-16 15:32 | CT_ITS ---
FINAL REPORT TECHNIQUE: thin section axial CT with and without IV contrast supplemented with multiplanar 3-D reconstruction of the head. This study was performed with techniques to keep radiation doses as low as reasonably achievable, (ALARA)individualized dose reduction techniques using automated exposure control or adjustment of mA and/or kV according to the patient's size were employed. CLINICAL HISTORY: L sided numbness/tingling for 9 days COMPARISON: None FINDINGS: HEAD CT: The right ventricle is larger than the left, likely a normal variant. There is no evidence of hemorrhage. No masses are identified. No extra-axial fluid is seen. CTA: There is calcification in the cavernous segment of the right internal carotid artery without significant stenosis. The cranial circulation is otherwise unremarkable. There is no significant stenosis, aneurysm or occlusion. IMPRESSION: No acute process. Reviewed, Interpreted and Dictated by Gregor Welsh MD Transcribed by Sandra Cortez Authenticated and [facility]
--- NOTE | 2023-08-16 15:32 | CT_ITS ---
FINAL REPORT CLINICAL HISTORY: L sided numbness/tingling for 9 days FINDINGS: Mild atrophy and chronic ischemic white matter changes are noted. No cortical edema is present. There is no mass or hemorrhage. Ventricles are normal. Bone windows show no skull fracture or obvious obstructive lesion. IMPRESSION: 1. No acute intracranial abnormality or obvious mass. 2. Atrophy and chronic ischemic white matter changes as above. Authenticated and [facility]
--- NOTE | 2023-08-16 15:34 | HMH.EDGENADL ---
Discharge Plan Disposition Patient Disposition: Home, Self-Care Condition: Good Prescriptions Prescriptions: New nitrofurantoin monohyd/m-cryst [Macrobid] 100 mg capsule 100 mg PO BID 7 Days Qty: 14 0RF Rx Instructions: must administer with a meal/food hydroxyzine HCl 25 mg tablet 25 mg PO Q8H PRN (Reason: panic attack(s)) Qty: 14 0RF No Action aspirin [Adult Low Dose Aspirin] 81 mg tablet,delayed release (DR/EC) 81 mg PO QDAY ezetimibe 10 mg tablet 10 mg PO DAILY 30 Days Qty: 30 2RF duloxetine 60 mg capsule,delayed release(DR/EC) 120 mg PO DAILY 90 Days Qty: 180 3RF atorvastatin 80 mg tablet 80 mg PO DAILY 90 Days Qty: 90 2RF alendronate 10 mg tablet 10 mg PO DAILY 90 Days Qty: 90 2RF bisoprolol fumarate 5 mg tablet 2.5 mg PO DAILY Qty: 30 3RF prasugrel [Effient] 10 mg tablet 10 mg PO DAILY Qty: 90 3RF omeprazole 40 mg capsule,delayed release(DR/EC) See Rx Instructions .ROUTE .COMPLEX Qty: 90 0RF Dose Instruction: TAKE 1 CAPSULE BY MOUTH ONCE DAILY Rx Instructions: TAKE 1 CAPSULE BY MOUTH ONCE DAILY quetiapine 200 mg tablet See Rx Instructions .ROUTE .COMPLEX Qty: 90 0RF Dose Instruction: TAKE 1 TABLET BY MOUTH AT BEDTIME Rx Instructions: TAKE 1 TABLET BY MOUTH AT BEDTIME methocarbamol 750 mg tablet 750 mg PO TID Qty: 90 0RF Activity Restrictions/Add. Instructions Additional Instructions/Restrictions: You were evaluated in the emergency department today. Please clam picker your prescription for antibiotics at the pharmacy and take as prescribed. I did prescribe a medication for you to have as needed for panic attacks, but we cannot prescribe controlled anxiety medications from the emergency department. Please follow-up closely with your primary care provider. Return to the emergency department for new or worsening symptoms. Clinical Impressions Clinical Impression: Anxiety, UTI (urinary tract infection) Instructions Patient Instructions: DI for Urinary Tract Infection (UTI), DI for Anxiety -- Adult Discharge ED Provider: Linn Leiva General Adult HPI General Chief complaint: Extremity Problem,Nontraumatic Stated complaint: Weakness Time Seen by Provider: 08/16/23 15:28 Mode of Arrival: EMS Source of Information: Patient Limitations: No Limitations Description of Symptoms (Recalled from ER Triage Doc. by RN): c/o chest tightness without pain or radiation, numbness in her left leg and the left side of her face for the past 8-9 days. States that she recently was taken off her valium, percocet, and neurotin due to her drug test no showing valium in her test. History of Present Illness HPI narrative: Patient is a 62-year-old female with a history of hypertension, hyperlipidemia, CAD Status post stenting, chronic back pain, chronic cervical radicular pain, chronic opioid and benzodiazepine dependence, and anxiety presenting with concern for heart attack and stroke symptoms. Patient reports that she saw her primary care provider just before July 25 and was told that she did not have volume in her urine, so she failed a drug test for maintenance of her controlled prescriptions. She states that because of this, she was yanked off of them cold turkey. She notes that since then, she just been lying at home waiting to . She states she has had both heart attack and stroke symptoms. She notes that she is having chest pain going down her left arm and has felt numb and tingly on her entire left side. No other concerns noted, such as visual changes, speech disturbance, gait disturbance, or motor weakness. Overall, the symptoms been going on for 8 or 9 days. Related Data Home Medications Medication Instructions Recorded Confirmed aspirin 81 mg tablet,delayed 81 mg PO QDAY Blood Thinner 05/27/17 08/14/23 release (Adult Low Dose Aspirin) Previous Rx's Medication Instructions Recorded ezetimibe 10 mg tablet 10 mg PO DAILY 30 days #30 tabs 05/29/23 omeprazole 40 mg capsule,delayed See Rx Instructions .Route 06/19/23 release .COMPLEX #90 caps alendronate 10 mg tablet 10 mg PO DAILY 90 days #90 tabs 06/24/23 atorvastatin 80 mg tablet 80 mg PO DAILY 90 days #90 tabs 06/24/23 duloxetine 60 mg capsule,delayed 120 mg (2 x 60 mg) PO DAILY 06/24/23 release Depression 90 days #180 caps quetiapine 200 mg tablet See Rx Instructions .Route 07/09/23 .COMPLEX #90 tabs bisoprolol fumarate 5 mg tablet 2.5 mg (1/2 x 5 mg) PO DAILY #30 08/12/23 tabs prasugrel 10 mg tablet (Effient) 10 mg PO DAILY #90 tabs 08/12/23 methocarbamol 750 mg tablet 750 mg PO TID #90 tabs 08/14/23 hydroxyzine HCl 25 mg tablet 25 mg PO Q8H PRN panic attack(s) 08/16/23 #14 tabs nitrofurantoin 100 mg PO BID 7 days #14 caps 08/16/23 monohydrate/macrocrystals 100 mg capsule (Macrobid) Allergies Allergy/AdvReac Type Severity Reaction Status Date / Time No Known Allergies Allergy Verified 08/12/23 09:38 [facility] Disclaimer: The information contained in this section may have been updated after the patient was seen, as this information can be updated by other users. Medical History Coronary artery disease Dyspnea HTN (hypertension) Alcoholism in recovery Abnormal ECG Pain Hyperlipidemia Chronic back pain greater than 3 months duration Anxiety Family History Other Family history of diabetes mellitus type II Family history of myocardial infarction Social History Smoking Status: Current every day smoker tobacco type: cigarettes packs per day: 1 alcohol intake: former substance use type: former substance user and heroin current occupational status: disabled Travel in the last 8 weeks: None household members: none housing: apartment ROS Obtained: Yes All systems reviewed & no additional complaints except as documented Physical Exam General General appearance: alert and in no apparent distress Head Head exam: atraumatic and normocephalic Eye Eye exam: Present normal appearance, PERRL and EOMI ENT ENT exam: Present normal exam, normal oropharynx, mucous membranes moist and normal external ear exam Neck Neck exam: Present normal inspection, full ROM and trachea midline; Absent tenderness Chest Chest inspection: Present normal inspection and symmetric chest wall rise; Absent tenderness Respiratory Respiratory exam: Present normal lung sounds bilaterally; Absent respiratory distress, wheezes, stridor or accessory muscle use Cardiovascular Cardiovascular exam: Present regular rate and normal rhythm Abdominal Exam Abdominal exam: Present soft; Absent distention, tenderness or guarding Extremities Exam Extremities exam: Present normal inspection, full ROM and normal capillary refill; Absent tenderness or edema Back Exam Back exam: Present normal inspection and full ROM; Absent tenderness Neurological Exam Neurological exam: Present alert, oriented X3, normal gait and motor sensory deficit (Subjective decrease in sensation on the entire left side of the body, but no focal neurologic deficits otherwise) Expanded Neurological Exam Patient oriented to: Present person, place and time Cranial nerves: Normal: EOM function (II, III, IV, ), facial palsy (VII), gag reflex (IX) and spinal accessory function (XI) and Abnormal Left: facial sensation (V) Cerebellar function: Normal: finger to nose and heel to pearson Motor strength - LUE: 5/5 Motor strength - RUE: 5/5 Motor strength - LLE: 5/5 Motor strength - RLE: 5/5 Upper motor neuron exam: Normal: eric neglect and pronator drift Sensory exam upper extremity: Abnormal Left: light touch Sensory exam lower extremity: Abnormal Left: light touch Coma scale eye opening: Spontaneous Coma scale motor response: Obeys commands Coma scale verbal response: Oriented Coma scale total: 15 Psychiatric Psychiatric exam: Present normal affect and normal mood Skin Skin exam: Present warm and dry Medical Decision Making Medical Records Medical records reviewed: Yes I reviewed the patient's medical records. Amos Inquiry Pt receiving controlled substance: No Vital Signs: 08/16/23 15:15 08/16/23 16:00 08/16/23 16:30 Temperature 97.8 F Temperature Source Oral Pulse Rate 65 72 Pulse Rate [Left Radial] 70 Respiratory Rate 13 16 15 Blood Pressure 138/91 H 139/89 Blood Pressure [Right Arm] 147/101 H Blood Pressure Mean Blood Pressure Mean [Right Arm] 116 Blood Pressure Source [Right Arm] Automatic Cuff Blood Pressure Position [Right Arm] Sitting 02 Sat by Pulse Oximetry 98 97 98 Oxygen Delivery Method Room Air 08/16/23 17:00 08/16/23 17:30 08/16/23 17:36 Temperature Temperature Source Pulse Rate 63 65 63 Pulse Rate [Left Radial] Respiratory Rate Blood Pressure 155/102 H 154/102 H 155/101 H Blood Pressure [Right Arm] Blood Pressure Mean 119 123 124 Blood Pressure Mean [Right Arm] Blood Pressure Source [Right Arm] Blood Pressure Position [Right Arm] 02 Sat by Pulse Oximetry 98 97 96 Oxygen Delivery Method Room Air Room Air Room Air 08/16/23 18:03 08/16/23 18:40 Temperature 97.9 F Temperature Source Pulse Rate 65 69 Pulse Rate [Left Radial] Respiratory Rate 16 Blood Pressure 151/101 H 154/93 H Blood Pressure [Right Arm] Blood Pressure Mean 117 Blood Pressure Mean [Right Arm] Blood Pressure Source [Right Arm] Blood Pressure Position [Right Arm] 02 Sat by Pulse Oximetry 98 Oxygen Delivery Method Room Air Lab Data Lab results reviewed: Yes I reviewed the patient's lab results. Lab Results 08/16/23 15:17: WBC 12.3 H, RBC 4.53, Hgb 13.6, Hct 41.4, MCV 91.5, MCH 29.9, MCHC 32.7, RDW 13.7, Plt Count 439 H, MPV 7.8, Neut % (Auto) 75.4, Lymph % (Auto) 18.8, [place] % (Auto) 4.3, Eos % (Auto) 0.6, Baso % (Auto) 0.9, Neut # (Auto) 9.3 H, Lymph # (Auto) 2.3, [place] # (Auto) 0.5, Eos # (Auto) 0.1, Baso # (Auto) 0.1, PT 10.7, INR 0.99, APTT 26.2, Sodium 136, Potassium 4.0, Chloride 106, Carbon Dioxide 26, Anion Gap 8.0, BUN 11, Creatinine 0.60, Estimated Creat Clear 62, Estimated GFR 101, Est GFR ( Amer) 122, Glucose 105 H, Calcium 9.5, Total Bilirubin 0.4, AST 28, ALT 23, Alkaline Phosphatase 113, Troponin I < 0.01, Total Protein 7.2, Albumin 4.1, Globulin 3.1, Albumin/Globulin Ratio 1.3, TSH 0.56, Thyroxine (T4) 5.2 L 08/16/23 15:34: VBG pH 7.39, VBG pCO2 40.7, VBG pO2 67.0 H, VBG HCO3 24.3, VBG Total CO2 25.5, VBG O2 Saturation 94.4 H, VBG Base Excess -0.7, VBG Lactic Acid 1.7 08/16/23 15:48: Urine Color Yellow, Urine Appearance Clear, Urine pH 6.0, Ur Specific [place] 1.020, Urine Protein Negative, Urine Glucose (UA) Negative, Urine Ketones Negative, Urine Blood Trace-i, Urine Nitrate Positive, Urine Bilirubin Negative, Urine Urobilinogen 0.2, Ur Leukocyte Esterase 3+ A, Urine RBC Occasional, Urine WBC 3-5, Ur Squamous Epith Cells 3-5, Urine Bacteria 4+ 08/16/23 15:17 08/16/23 15:17 Orders (Tests/Meds): ED MEDICATIONS Discontinued Medications Generic Name Dose Route Start Last Admin Trade Name Verna PRN Reason Stop Dose Admin Iopamidol 175 ml 08/16/23 16:24 08/16/23 16:26 Iopamidol-370 (76%);100ml Bottle IV 08/16/23 16:25 175 ml ONCE ONE Administration Nitrofurantoin Macrocrystals 100 mg 08/16/23 18:26 08/16/23 18:33 Nitrofurantoin 100mg Capsule PO 08/16/23 18:27 100 mg ONCE ONE Administration Sodium Chloride 10 ml 08/16/23 16:24 08/16/23 16:25 Sodium Chloride 0.9% 10ml Syr (Rad Only) IV 08/16/23 16:25 10 ml ONCE ONE Administration Sodium Chloride 100 ml 08/16/23 16:24 08/16/23 16:25 0.9 % Sodium Chloride 50 Ml Vial IV 08/16/23 16:25 100 ml ONCE ONE Administration ORDERS Category Date Time Status CT angio chest - dissection Stat Cat Scan 08/16/23 15:[address] angio head Stat Cat Scan 08/16/23 15:[address] angio neck Stat Cat Scan 08/16/23 15:[address] head/brain wo con Stat Cat Scan 08/16/23 15:32 Completed Activated Partial Thrombo Time Stat Lab 08/16/23 15:17 Completed Complete Blood Count Auto Diff Stat Lab 08/16/23 15:17 Completed Comprehensive Metabolic Panel Stat Lab 08/16/23 15:17 Completed Prothrombin Time INR Stat Lab 08/16/23 15:17 Completed T4 (Thyroxine) Stat Lab 08/16/23 15:17 Completed TSH [Thyroid Stimulating Hormone] Stat Lab 08/16/23 15:17 Completed Troponin I Stat Lab 08/16/23 15:17 Completed Urinalysis and Microscopic Stat Lab 08/16/23 15:48 Completed Urine Culture Stat Micro 08/16/23 15:48 Received Venous Blood Gas Stat RT 08/16/23 15:34 Completed ECG Data Tracing #1: I reviewed this ECG and interpreted as documented below: Normal sinus rhythm with a ventricular rate of [address] changes concerning for ischemia. Q waves noted in lead II and aVF. ECG initial impression date: 08/16/23 ECG initial impression time: 15:23 Medical Decision Narrative: In summary, this patient is a 62-year-old female presenting to the Emergency Department for evaluation of chest pain and left-sided numbness and tingling that have been going on for 8 to 9 days. She also notes that she has felt very anxious since quitting medications cold turkey after failing a drug test. Differential diagnoses considered include but are not limited to CVA, intracranial mass, aortic dissection, ACS, dysrhythmia, electrolyte derangements, anxiety. Ruling out the most morbid conditions drove assessment. On exam, the patient is well-appearing and in no acute distress. She has an NIH stroke scale of 1 for subjective decrease in sensation on the left side, but otherwise is neurologically intact. Vitals are reassuring on cardiac telemetry. Workup included CBC, CMP, troponin, PT, PTT, urinalysis, EKG, stroke CT scans, and CTA of the chest. EKG was obtained and is reassuring. I independently interpreted CT scans prior to the radiologist read and noted no obvious acute hemorrhage, mass, consolidation, aortic dissection. Please see their read for final interpretation. Labs were obtained that demonstrated mild leukocytosis and concerns for urinary tract infection based on urinalysis. Patient does recall that she has had dysuria and urinary frequency. Labs are otherwise reassuring with negative troponin. I do not feel it is imperative to obtain a second troponin given that this has been going on for 8 to 9 days. On reassessment, patient is resting calmly with normal vital signs. She denies any concerns or complaints at this time, except she is requesting her anxiety medication at home, as she states that she has been feeling very anxious since she had to quit cold turkey at the beginning of the month. I advised her that we cannot prescribe controlled substances for anxiety from the emergency department for long-term maintenance. I advised we could try sending her in hydroxyzine to have as needed for panic attacks, but that it is not a substitute for maintenance medications. She expressed understanding agreement. For her urinary tract infection, patient was given Macrobid. At this time, she is due to be appropriate for discharge. Instructions for close patient follow-up were given as well as strict return precautions. She was discharged after all questions were answered. Critical Care Critical Care Time Critical Care Time: No
--- NOTE | 2023-08-16 15:35 | PC.NURSE ---
respiratory aware of vbg order and blood in the lab
[2023-08-16 15:41] LABS: Lactate Venous 1.7 mmol/L (0.4-2.0); VBG Base Excess -0.7 mmol/L (-2.4-2.3); VBG HCO3 24.3 mmol/L (23-30); VBG Oxygen Saturation 94.4 % (50-70); VBG PCO2 40.7 mmol/L (35-51); VBG PH 7.39 mmol/L (7.31-7.41); VBG Total CO2 25.5 mmol/L (23-27)
--- NOTE | 2023-08-16 15:43 | PC.NURSE ---
Pt ambulatory to restroom without complications to provide UA
--- NOTE | 2023-08-16 15:45 | PC.NURSE ---
Family at BS
[2023-08-16 15:47] LABS: Basophils # 0.1 K/mm3 (0-0.2); Basophils % 0.9 % (0.1-2.0); Chloride 106 mmol/L (98-107); Eosinophils # 0.1 K/mm3 (0.0-0.4); Eosinophils % 0.6 % (0.1-12.0); Hematocrit 41.4 % (37.0-47.0); Hemoglobin 13.6 g/dL (12.2-16.2); Lymphocytes # 2.3 K/mm3 (0.7-4.5); Lymphocytes % 18.8 % (10-50); Mean Corpuscular HGB Conc 32.7 g/dL (31.8-35.4); Mean Corpuscular Hemoglobin 29.9 pg (27.0-31.2); Mean Corpuscular Volume 91.5 fl (81-99); Mean Platelet Volume 7.8 fl (7.4-10.4); Monocytes # 0.5 K/mm3 (0.1-1.0); Monocytes % 4.3 % (1.7-9.3); Neutrophils # 9.3 K/mm3 (1.8-7.8); Neutrophils % 75.4 % (37.0-80.0); Platelet Count 439 K/mm3 (142-424); Red Blood Count 4.53 M/mm3 (4.20-5.40); Red Cell Distribution Width 13.7 % (11.5-17.5); Sodium 136 mmol/L (136-145); White Blood Count 12.3 K/mm3 (4.8-10.8)
--- NOTE | 2023-08-16 15:48 | PC.NURSE ---
UA sent to lab; pt hooked back up to monitor, call bacon within reach. No other needs at this time. Family at BS
[2023-08-16 15:49] LABS: Blood Urea Nitrogen 11 mg/dl (7-17); Creatinine Clearance Estimated 62 mL/min (50-200); Estimated Glomerular Filt Rate 101 ml/min (>60); GFR (African American) 122 ML/MIN (>60)
[2023-08-16 15:50] LABS: Alanine Aminotransferase 23 U/L (12-78); Albumin Level 4.1 g/dl (3.5-5.0); Albumin/Globulin Ratio 1.3 (1.1-1.8); Alkaline Phosphatase 113 U/L (38-126); Aspartate Amino Transferase 28 U/L (14-36); Bilirubin,Total 0.4 mg/dl (0.2-1.3); Calcium 9.5 mg/dl (8.4-10.2); Carbon Dioxide 26 mmol/L (22.0-30.0); Globulin 3.1 g/dL (1.3-3.2); Glucose 105 mg/dl (74-100); Total Protein,Serum 7.2 g/dl (6.3-8.2)
[2023-08-16 15:52] LABS: Microscopic, Urine URINE MICROSCOPIC (MICROSCOPIC)
[2023-08-16 15:54] LABS: Activated Partial Thrombo Time 26.2 seconds (22.8-30.6); INR 0.99 (0.9-1.1); Prothrombin Time 10.7 seconds (10.1-12.5)
[2023-08-16 15:57] LABS: Appearance,Urine CLEAR (Clear); Bilirubin,Urine Negative (Negative); Blood, Urine TRACE-I (Negative); Color,Urine YELLOW (Yellow); Glucose,Urine (UA) Negative (Negative); Ketones,Urine Negative (Negative); Leukocyte Esterase,Urine 3+ (Negative); Nitrate,Urine POSITIVE (Negative); Protein,Urine Negative (Negative); Urobilinogen,Urine 0.2 EU/dl (0.2)
[2023-08-16 16:08] LABS: T4 (Thyroxine) 5.2 ug/dl (5.53-11.0)
[2023-08-16 16:11] LABS: Troponin I < 0.01 ng/ml (0.00-0.034)
[2023-08-16 16:21] LABS: Thyroid Stimulating Hormone 0.56 uIU/mL (0.465-4.68)
[2023-08-16] MEDS: SODIUM CHLORIDE 0.9% 10ML SYR (RAD ONLY) 10 ML IV (16:25)
[2023-08-16] MEDS: 0.9 % SODIUM CHLORIDE 50 ML VIAL 100 ML IV (16:25)
[2023-08-16] MEDS: IOPAMIDOL-370 (76%);100ML BOTTLE 175 ML IV (16:26)
[2023-08-16 16:29] LABS: Bacteria,Urine 4+ /lpf
[2023-08-16 16:30] LABS: RBC,Urine Occasional #/hpf (0-3)
[2023-08-16] MEDS: NITROFURANTOIN 100MG CAPSULE 100 MG PO (18:33)
== END 2023-08-16 18:40 | disposition home or self-care (01) ==
PROVIDERS: Emergency Provider Emergency Medicine; PCP Internal Medicine
DX: N39.0 Urinary tract infection, site not specified (principal); B96.29 Other Escherichia coli [E. coli] as the cause of diseases classified elsewhere; F41.1 Generalized anxiety disorder; I11.9 Hypertensive heart disease without heart failure; E78.5 Hyperlipidemia, unspecified; I25.10 Atherosclerotic heart disease of native coronary artery without angina pectoris; F17.210 Nicotine dependence, cigarettes, uncomplicated; Z95.5 Presence of coronary angioplasty implant and graft
CPT/HCPCS: 70450; 70496; 70498; 71275; 80053; 81001; 82803; 84436; 84443; 84484; 85025; 85610; 85730; 87086; 93005; 99285; Q9967

== ENCOUNTER 2023-11-20 13:57 | Outpatient (CLI) | payer OTHER, SELFPAY ==
--- NOTE | 2023-11-20 14:09 | XR_ITS ---
FINAL REPORT CLINICAL HISTORY: ankle pain COMPARISON: None FINDINGS: LEFT ANKLE: Three views of the left ankle were obtained. There is no acute fracture or dislocation. The joint spaces and mortise are intact. There is no soft tissue abnormality. IMPRESSION: No acute bony abnormality. Reviewed, Interpreted and Dictated by Joaquin Soliz III, MD Transcribed by Sandra Cortez Authenticated and [facility]
== END 2023-11-20 23:59 | disposition home or self-care (01) ==
LOC: RAD 13:59
PROVIDERS: PCP Internal Medicine; Visit Provider Family Medicine
DX: M25.572 Pain in left ankle and joints of left foot (principal); G89.29 Other chronic pain
CPT/HCPCS: 73610

== ENCOUNTER 2023-11-20 14:25 | Outpatient (RCR) | payer OTHER, SELFPAY | END 2023-11-20 15:30 | disposition home or self-care (01) | LOC: PT 14:25 | PROVIDERS: Visit Provider Family Medicine | DX: M25.572 Pain in left ankle and joints of left foot (principal) | CPT/HCPCS: 97760 ==

== ENCOUNTER 2024-03-23 19:50 | Outpatient (CLI) | payer MEDICARE, OTHER, SELFPAY | END 2024-03-23 23:59 | disposition home or self-care (01) | LOC: LAB.DROPOF 19:52 | PROVIDERS: PCP Family Medicine; Visit Provider Family Medicine | DX: R39.9 Unspecified symptoms and signs involving the genitourinary system (principal) | CPT/HCPCS: 87086 ==

== ENCOUNTER 2024-05-03 20:44 | Emergency (ER) | payer MEDICARE, OTHER, SELFPAY ==
[2024-05-03 21:15] VITALS: BP 110/75; PULSE 103; RESP 20; TEMP 36.4; O2SAT 96; BMI 22.8
--- NOTE | 2024-05-03 22:07 | PC.NURSE ---
labs collected and sent
[2024-05-03] MEDS: ACETAMINOPHEN 500MG TAB 1000 MG PO (22:17)
[2024-05-03] MEDS: KETOROLAC 30MG/ML VIAL 15 MG IV (22:17)
[2024-05-03] MEDS: ONDANSETRON 4MG/2ML VIAL 4 MG IV (22:18)
[2024-05-03 22:20] LABS: Albumin Level 4.9 g/dl (3.5-5.0); Chloride 107 mmol/L (98-107); Sodium 138 mmol/L (136-145)
[2024-05-03 22:23] LABS: Alanine Aminotransferase 19 U/L (12-78); Albumin/Globulin Ratio 1.6 (1.1-1.8); Alkaline Phosphatase 123 U/L (38-126); Aspartate Amino Transferase 28 U/L (14-36); Basophils # 0.2 K/mm3 (0-0.2); Basophils % 1.3 % (0.1-2.0); Bilirubin,Total 0.8 mg/dl (0.2-1.3); Blood Urea Nitrogen 14 mg/dl (7-17); Carbon Dioxide 20 mmol/L (22.0-30.0); Creatinine Clearance Estimated 60 mL/min (50-200); Eosinophils # 0.2 K/mm3 (0.0-0.4); Eosinophils % 1.5 % (0.1-12.0); Estimated Glomerular Filt Rate 63 ml/min (>60); GFR (African American) 76 ML/MIN (>60); Globulin 3.1 g/dL (1.3-3.2); Hematocrit 42.7 % (37.0-47.0); Hemoglobin 14.6 g/dL (12.2-16.2); Lymphocytes # 3.2 K/mm3 (0.7-4.5); Lymphocytes % 26.6 % (10-50); Mean Corpuscular HGB Conc 34.2 g/dL (31.8-35.4); Mean Corpuscular Hemoglobin 26.7 pg (27.0-31.2); Mean Corpuscular Volume 78.1 fl (81-99); Mean Platelet Volume 7.3 fl (7.4-10.4); Monocytes # 0.5 K/mm3 (0.1-1.0); Monocytes % 4.3 % (1.7-9.3); Neutrophils % 66.4 % (37.0-80.0); Platelet Count 485 K/mm3 (142-424); Red Blood Count 5.47 M/mm3 (4.20-5.40); Red Cell Distribution Width 17.1 % (11.5-17.5)
[2024-05-03 22:24] LABS: Calcium 10.3 mg/dl (8.4-10.2); Glucose 107 mg/dl (74-100)
--- NOTE | 2024-05-03 22:26 | PC.NURSE ---
Pt awake alert and oriented x3 Skin pink warm and dry Resp full and easy Speech clear and appropriate. Gait steady
--- NOTE | 2024-05-03 23:17 | ED_ITS ---
Discharge Plan Disposition Patient Disposition: Home, Self-Care Prescriptions Prescriptions: New cefdinir 300 mg capsule 300 mg PO BID 7 Days Qty: 14 0RF phenazopyridine 95 mg tablet 95 mg PO Q8H PRN (Reason: pain) Qty: 6 0RF No Action alendronate 10 mg tablet 10 mg PO DAILY 90 Days Qty: 90 2RF aspirin [Adult Low Dose Aspirin] 81 mg tablet,delayed release (DR/EC) 81 mg PO QDAY Qty: 90 0RF atorvastatin 80 mg tablet 80 mg PO DAILY 90 Days Qty: 90 2RF bisoprolol fumarate 5 mg tablet 2.5 mg PO DAILY Qty: 90 3RF meloxicam 7.5 mg tablet 7.5 mg PO DAILY Qty: 30 2RF ondansetron HCl 4 mg tablet 4 mg PO Q8H PRN (Reason: nausea and vomiting) 4 Days Qty: 14 0RF ciprofloxacin HCl 250 mg tablet 250 mg PO BID Qty: 14 0RF iyyrrjdnzddmcru-[id number] [Bromfed DM] 2-30-10 mg/5 mL syrup 10 ml PO Q6H PRN (Reason: cold symptoms) Qty: 118 0RF hydroxyzine pamoate 50 mg capsule 50 mg PO TID PRN (Reason: anxiety) Qty: 90 0RF prasugrel [Effient] 10 mg tablet 10 mg PO DAILY Qty: 90 3RF omeprazole 40 mg capsule,delayed release(DR/EC) See Rx Instructions .ROUTE .COMPLEX Qty: 90 0RF Dose Instruction: TAKE 1 CAPSULE BY MOUTH ONCE DAILY Rx Instructions: TAKE 1 CAPSULE BY MOUTH ONCE DAILY hydroxyzine HCl 25 mg tablet 25 mg PO QID PRN (Reason: panic attack(s)) 30 Days Qty: 120 2RF quetiapine 200 mg tablet See Rx Instructions .ROUTE .COMPLEX Qty: 90 0RF Dose Instruction: TAKE 1 TABLET BY MOUTH AT BEDTIME Rx Instructions: TAKE 1 TABLET BY MOUTH AT BEDTIME Referrals Follow up/Referrals: Caryn Esposito APRN [Primary Care Provider] - See instructions Activity Restrictions/Add. Instructions Additional Instructions/Restrictions: You were evaluated in the ER and are appropriate for discharge at this time. Take the prescribed cefdinir as directed, do not skip doses, do not stop taking it early. Take the prescribed phenazopyridine, this will turn your urine orange but should help with your symptoms. Make an appoint with your primary care doctor for reevaluation in 2 to 3 days, return to the ER with new, worsening, or otherwise concerning symptoms Clinical Impressions Clinical Impression: Dysuria, Acute UTI Instructions Patient Instructions: DI for Low Back Pain Print Language Print Language: [place] Discharge ED Provider: Linn Leiva General Adult HPI <Linn Leiva DO - Last Filed: 05/03/24 23:21> General Chief complaint: Back Pain/Injury Stated complaint: frequent urination, groin pain Time Seen by Provider: 05/03/24 21:39 Mode of Arrival: Ambulatory Source of Information: Patient Limitations: No Limitations Description of Symptoms (Recalled from ER Triage Doc. by RN): back pain with urinary complaints. Difficulty urinating History of Present Illness HPI narrative: This patient is a 63-year-old female with a history of recurrent urinary tract infection, hypertension, hyperlipidemia, CAD, chronic back pain, and anxiety presenting to the emergency department for evaluation with concern for difficulty urinating. Patient states that he feels that she has another urinary tract infection. It has felt like this for 2 days. She has pelvic pressure and urge to urinate. She notes that her last 1 was about a month and a half ago. No fevers, chills, nausea, vomiting, or systemic symptoms noted. No back pain Related Data Previous Rx's ?Medication ?Instructions ?Recorded prasugrel 10 mg tablet (Effient) 10 mg PO DAILY #90 tabs 10/16/23 alendronate 10 mg tablet 10 mg PO DAILY 90 days #90 tabs 11/20/23 aspirin 81 mg tablet,delayed 81 mg PO QDAY Blood Thinner #90 11/20/23 release (Adult Low Dose Aspirin) tabs atorvastatin 80 mg tablet 80 mg PO DAILY 90 days #90 tabs 11/20/23 bisoprolol fumarate 5 mg tablet 2.5 mg (1/2 x 5 mg) PO DAILY #90 11/20/23 tabs meloxicam 7.5 mg tablet 7.5 mg PO DAILY #30 tabs 11/20/23 riszxugyjrgvxzu-lzyrkgqhmvpacrg-ZG 10 ml PO Q6H PRN cold symptoms 03/23/24 2 mg-30 mg-10 mg/5 mL oral syrup #118 mL (Bromfed DM) ciprofloxacin HCl 250 mg tablet 250 mg PO BID #14 tabs 03/23/24 ondansetron HCl 4 mg tablet 4 mg PO Q8H PRN nausea and 03/23/24 vomiting 4 days #14 tabs omeprazole 40 mg capsule,delayed See Rx Instructions .Route 03/31/24 release .COMPLEX #90 caps hydroxyzine HCl 25 mg tablet 25 mg PO QID PRN panic attack(s) 04/10/24 30 days #120 tabs quetiapine 200 mg tablet See Rx Instructions .Route 04/13/24 .COMPLEX #90 tabs hydroxyzine pamoate 50 mg capsule 50 mg PO TID PRN anxiety #90 caps 04/28/24 cefdinir 300 mg capsule 300 mg PO BID 7 days #14 caps 05/04/24 phenazopyridine 95 mg tablet 95 mg PO Q8H PRN pain 6 doses #6 05/04/24 tabs Allergies Allergy/AdvReac Type Severity Reaction Status Date / Time No Known Allergies Allergy Verified 04/28/24 10:01 [facility] <Linn Leiva DO - Last Filed: 05/03/24 23:21> [facility] Disclaimer: The information contained in this section may have been updated after the patient was seen, as this information can be updated by other users. Medical History Generalized anxiety disorder Coronary artery disease Dyspnea HTN (hypertension) Alcoholism in recovery Abnormal ECG Pain Hyperlipidemia Chronic back pain greater than 3 months duration Anxiety Family History Other Family history of diabetes mellitus type II Family history of myocardial infarction Social History Smoking Status: Current every day smoker tobacco type: cigarettes packs per day: 1 alcohol intake: former substance use type: former substance user and heroin current occupational status: disabled Travel in the last 8 weeks: None household members: none housing: apartment Have you lived/traveled outside [place] in past 30 days?: No Contact w/someone who lives/traveled outside [place] past 30 days?: No Exposure to someone with infectious disease in past 14 days?: No Do you have a fever (greater than 100.4 F or 38 C)?: No Have you tested positive for COVID-19: No Exposed to someone with COVID-19 in past 14 days?: No Do you have a sore throat?: No Do you have a cough?: No Do you have any weakness?: No Do you have any diarrhea?: No Are you experiencing any unusual bleeding?: No Do you have any muscle aches/pain?: No Do you have any abdominal pain?: No Are you experiencing loss of taste or smell?: No Other Medical History Have you received the Flu Vaccine for this season: Yes Have you received the Pneumonia Vaccine: No <Linn Leiva DO - Last Filed: 05/03/24 23:21> ROS Obtained: Yes All systems reviewed & no additional complaints except as documented Physical Exam <Linn Leiva DO - Last Filed: 05/03/24 23:21> General General appearance: alert and in no apparent distress Head Head exam: atraumatic and normocephalic Eye Eye exam: Present normal appearance, PERRL and EOMI ENT ENT exam: Present normal exam, normal oropharynx, mucous membranes moist and normal external ear exam Neck Neck exam: Present normal inspection, full ROM and trachea midline; Absent tenderness Chest Chest inspection: Present normal inspection and symmetric chest wall rise; Absent tenderness Respiratory Respiratory exam: Present normal lung sounds bilaterally; Absent respiratory distress, wheezes, stridor or accessory muscle use Cardiovascular Cardiovascular exam: Present regular rate and normal rhythm Abdominal Exam Abdominal exam: Present soft; Absent distention, tenderness or guarding Extremities Exam Extremities exam: Present normal inspection, full ROM and normal capillary refill; Absent tenderness or edema Back Exam Back exam: Present normal inspection and full ROM; Absent tenderness Neurological Exam Neurological exam: Present alert, oriented X3, CN II-XII intact and normal gait; Absent motor sensory deficit Psychiatric Psychiatric exam: Present normal affect and normal mood Skin Skin exam: Present warm and dry Medical Decision Making <Linn Leiva DO - Last Filed: 05/03/24 23:21> Medical Records Medical records reviewed: Yes I reviewed the patient's medical records. Screening: Per USPSTF and CDC recommendations, given the prevalence of disease in our region, it is our hospital?s policy to screen for HIV and viral Hepatitis for all patients aged 18 and over and those with ongoing risk factors. Amos Inquiry Pt receiving controlled substance: No Vital Signs: 05/03/24 21:15 05/04/24 00:42 Temperature 97.5 F L 98.2 F Temperature Source Oral Oral Pulse Rate 77 Pulse Rate [Right Brachial] 103 H Respiratory Rate 20 16 Blood Pressure 101/68 L Blood Pressure [Right Arm] 110/75 Blood Pressure Mean [Right Arm] 86 Blood Pressure Source Automatic Cuff Blood Pressure Source [Right Arm] Automatic Cuff Blood Pressure Position Sitting 02 Sat by Pulse Oximetry 96 99 Oxygen Delivery Method Room Air Room Air Lab Data Lab results reviewed: Yes I reviewed the patient's lab results. Lab Results 05/03/24 22:00: WBC 12.0 H, RBC 5.47 H, Hgb 14.6, Hct 42.7, MCV 78.1 L, MCH 26.7 L, MCHC 34.2, RDW 17.1, Plt Count 485 H, MPV 7.3 L, Neut % (Auto) 66.4, Lymph % (Auto) 26.6, Treasure % (Auto) 4.3, Eos % (Auto) 1.5, Baso % (Auto) 1.3, Neut # (Auto) 8.0 H, Lymph # (Auto) 3.2, Treasure # (Auto) 0.5, Eos # (Auto) 0.2, Baso # (Auto) 0.2, Sodium 138, Potassium 4.0, Chloride 107, Carbon Dioxide 20 L, Anion Gap 15.0, BUN 14, Creatinine 0.90, Estimated Creat Clear 60, Estimated GFR 63, Est GFR ( Amer) 76, Glucose 107 H, Calcium 10.3 H, Total Bilirubin 0.8, AST 28, ALT 19, Alkaline Phosphatase 123, Total Protein 8.0, Albumin 4.9, Globulin 3.1, Albumin/Globulin Ratio 1.6 05/04/24 00:00: Urine Color Yellow, Urine Appearance Slightly cloudy, Urine pH 6.0, Ur Specific Davis >= 1.030, Urine Protein Trace, Urine Glucose (UA) Negative, Urine Ketones Negative, Urine Blood Trace-i, Urine Nitrate Negative, Urine Bilirubin Negative, Urine Urobilinogen 0.2, Ur Leukocyte Esterase 2+ A, Urine RBC 5-10, Urine WBC Tntc, Ur Squamous Epith Cells 10-20, Urine Bacteria 2+ 05/03/24 22:00 05/03/24 22:00 Orders (Tests/Meds): ED MEDICATIONS Generic Name Dose Route Start Last Admin Trade Name Freq PRN Reason Stop Dose Admin Cefdinir 300 mg 05/04/24 01:53 Cefdinir 300mg Capsule PO 05/04/24 01:54 ONCE ONE Discontinued Medications Generic Name Dose Route Start Last Admin Trade Name Verna PRN Reason Stop Dose Admin Acetaminophen 1,000 mg 05/03/24 22:04 05/03/24 22:17 Acetaminophen 500mg Tab PO 05/03/24 22:05 1,000 mg ONCE ONE Administration Ketorolac Tromethamine 15 mg 05/03/24 22:04 05/03/24 22:17 Ketorolac 30mg/Ml Vial IV 05/03/24 22:05 15 mg ONCE ONE Administration Ondansetron HCl 4 mg 05/03/24 22:04 05/03/24 22:18 Ondansetron 4mg/2ml Vial IV 05/03/24 22:05 4 mg ONCE ONE Administration Oxycodone HCl 2.5 mg 05/04/24 00:31 05/04/24 00:45 Oxycodone 5mg Immediate Release Tablet PO 05/04/24 00:32 2.5 mg ONCE ONE Administration ORDERS Category Date Time Status CBC w/Auto Diff [Complete Blood Count Auto Diff] Stat Lab 05/03/24 22:00 Completed CMP [Comprehensive Metabolic Panel] Stat Lab 05/03/24 22:00 Completed HIV (1&2) Antibody Rapid Stat Lab 05/03/24 22:00 Received UA [Urinalysis and Microscopic] Stat Lab 05/04/24 00:00 Completed Urine Culture Stat Micro 05/04/24 00:00 Received Medical Decision Narrative: In summary, this patient is a 63-year-old female presenting to the Emergency Department for evaluation of urinary urgency, frequency, dysuria. Differential diagnoses considered include but are not limited to cystitis, pyelonephritis, RICCARDO, vaginitis. Ruling out the most morbid conditions drove assessment. It should be noted patient's history includes recurrent urinary tract infections which is not at goal therapy. This complicates all aspects of care by increasing patient's risk for morbidity. I reviewed patient's past medical records and noted prior urine cultures with no growth noted, last 1 being from March 2024. On exam, patient is sitting upright in chair in no acute distress with benign abdominal exam. No significant CVA tenderness. Workup included, CMP, urinalysis. Patient was given IV Toradol, oral Tylenol for symptomatic improvement.. Labs were obtained that demonstrated mild leukocytosis. No significant RICCARDO. Patient has not yet been able to provide a urine specimen, but she is drinking fluids without issue. Patient care signed out to the oncoming provider, Dr. Bond, pending urinalysis. <Diana Bond MD - Last Filed: 05/04/24 01:58> Vital Signs: 05/03/24 21:15 05/04/24 00:42 Temperature 97.5 F L 98.2 F Temperature Source Oral Oral Pulse Rate 77 Pulse Rate [Right Brachial] 103 H Respiratory Rate 20 16 Blood Pressure 101/68 L Blood Pressure [Right Arm] 110/75 Blood Pressure Mean [Right Arm] 86 Blood Pressure Source Automatic Cuff Blood Pressure Source [Right Arm] Automatic Cuff Blood Pressure Position Sitting 02 Sat by Pulse Oximetry 96 99 Oxygen Delivery Method Room Air Room Air Lab Data Lab Results 05/03/24 22:00: WBC 12.0 H, RBC 5.47 H, Hgb 14.6, Hct 42.7, MCV 78.1 L, MCH 26.7 L, MCHC 34.2, RDW 17.1, Plt Count 485 H, MPV 7.3 L, Neut % (Auto) 66.4, Lymph % (Auto) 26.6, Treasure % (Auto) 4.3, Eos % (Auto) 1.5, Baso % (Auto) 1.3, Neut # (Auto) 8.0 H, Lymph # (Auto) 3.2, Treasure # (Auto) 0.5, Eos # (Auto) 0.2, Baso # (Auto) 0.2, Sodium 138, Potassium 4.0, Chloride 107, Carbon Dioxide 20 L, Anion Gap 15.0, BUN 14, Creatinine 0.90, Estimated Creat Clear 60, Estimated GFR 63, Est GFR ( Amer) 76, Glucose 107 H, Calcium 10.3 H, Total Bilirubin 0.8, AST 28, ALT 19, Alkaline Phosphatase 123, Total Protein 8.0, Albumin 4.9, Globulin 3.1, Albumin/Globulin Ratio 1.6 05/04/24 00:00: Urine Color Yellow, Urine Appearance Slightly cloudy, Urine pH 6.0, Ur Specific Davis >= 1.030, Urine Protein Trace, Urine Glucose (UA) Negative, Urine Ketones Negative, Urine Blood Trace-i, Urine Nitrate Negative, Urine Bilirubin Negative, Urine Urobilinogen 0.2, Ur Leukocyte Esterase 2+ A, Urine RBC 5-10, Urine WBC Tntc, Ur Squamous Epith Cells 10-20, Urine Bacteria 2+ Orders (Tests/Meds): ED MEDICATIONS Generic Name Dose Route Start Last Admin Trade Name Verna PRN Reason Stop Dose Admin Cefdinir 300 mg 05/04/24 01:53 Cefdinir 300mg Capsule PO 05/04/24 01:54 ONCE ONE Discontinued Medications Generic Name Dose Route Start Last Admin Trade Name Freq PRN Reason Stop Dose Admin Acetaminophen 1,000 mg 05/03/24 22:04 05/03/24 22:17 Acetaminophen 500mg Tab PO 05/03/24 22:05 1,000 mg ONCE ONE Administration Ketorolac Tromethamine 15 mg 05/03/24 22:04 05/03/24 22:17 Ketorolac 30mg/Ml Vial IV 05/03/24 22:05 15 mg ONCE ONE Administration Ondansetron HCl 4 mg 05/03/24 22:04 05/03/24 22:18 Ondansetron 4mg/2ml Vial IV 05/03/24 22:05 4 mg ONCE ONE Administration Oxycodone HCl 2.5 mg 05/04/24 00:31 05/04/24 00:45 Oxycodone 5mg Immediate Release Tablet PO 05/04/24 00:32 2.5 mg ONCE ONE Administration ORDERS Category Date Time Status CBC w/Auto Diff [Complete Blood Count Auto Diff] Stat Lab 05/03/24 22:00 Completed CMP [Comprehensive Metabolic Panel] Stat Lab 05/03/24 22:00 Completed HIV (1&2) Antibody Rapid Stat Lab 05/03/24 22:00 Received UA [Urinalysis and Microscopic] Stat Lab 05/04/24 00:00 Completed Urine Culture Stat Micro 05/04/24 00:00 Received Medical Decision Narrative: In summary, this patient is a 63-year-old female presenting to the Emergency Department for evaluation of urinary urgency, frequency, dysuria. Differential diagnoses considered include but are not limited to cystitis, pyelonephritis, RICCARDO, vaginitis. Ruling out the most morbid conditions drove assessment. It should be noted patient's history includes recurrent urinary tract infections which is not at goal therapy. This complicates all aspects of care by increasing patient's risk for morbidity. I reviewed patient's past medical records and noted prior urine cultures with no growth noted, last 1 being from March 2024. On exam, patient is sitting upright in chair in no acute distress with benign abdominal exam. No significant CVA tenderness. Workup included, CMP, urinalysis. Patient was given IV Toradol, oral Tylenol for symptomatic improvement.. Labs were obtained that demonstrated mild leukocytosis. No significant RICCARDO. Patient has not yet been able to provide a urine specimen, but she is drinking fluids without issue. Patient care signed out to the oncoming provider, Dr. Bond, pending urinalysis. Bond: Upon my assumption of care patient is stable, resting comfortably, I agree with Dr. Leiva assessment and plan. Patient does not have CVA tenderness, no concerns for pyelonephritis at this time. Serum labs are reassuring, UA pending. Patient provided urine which on my review is concerning for urinary tract infection. She received a dose of cefdinir, urine is being sent for culture. I prescribed cefdinir for outpatient management as well. I also prescribed phenazopyridine for symptomatic management. Patient was given instructions on symptomatic management, follow up instructions, and return precautions for the emergency department. Patient indicated understanding and was discharged in stable condition. Critical Care <Linn Leiva, DO - Last Filed: 05/03/24 23:21> Critical Care Time Critical Care Time: No
--- NOTE | 2024-05-04 00:24 | PC.NURSE ---
Urine collected and sent to lab
[2024-05-04 00:27] LABS: Microscopic, Urine URINE MICROSCOPIC (MICROSCOPIC)
[2024-05-04 00:42] VITALS: BP 101/68; PULSE 77; RESP 16; TEMP 36.8; O2SAT 99
[2024-05-04 00:45] LABS: Bilirubin,Urine Negative (Negative); Blood, Urine TRACE-I (Negative); Color,Urine YELLOW (Yellow); Glucose,Urine (UA) Negative (Negative); Ketones,Urine Negative (Negative); Leukocyte Esterase,Urine 2+ (Negative); Nitrate,Urine Negative (Negative); Protein,Urine TRACE (Negative); Specific Gravity, Urine >= 1.030 (1.005-1.030); Urobilinogen,Urine 0.2 EU/dl (0.2)
[2024-05-04] MEDS: OXYCODONE 5MG IMMEDIATE RELEASE TABLET 2.5 MG PO (00:45)
[2024-05-04 00:55] LABS: Appearance,Urine Slightly Cloudy (Clear)
[2024-05-04 01:17] LABS: WBC,Urine TNTC #/hpf (0-3)
[2024-05-04 01:18] LABS: Bacteria,Urine 2+ /lpf
[2024-05-04] MEDS: CEFDINIR 300MG CAPSULE 300 MG PO (01:59)
[2024-05-04 02:01] VITALS: BP 112/74; PULSE 98; RESP 16; TEMP 36.7; O2SAT 96
[2024-05-05 11:13] LABS: HIV Combo NEGATIVE (Negative)
== END 2024-05-04 02:04 | disposition home or self-care (01) ==
PROVIDERS: Emergency Provider Emergency Medicine; PCP Family Medicine
DX: N39.0 Urinary tract infection, site not specified (principal); R30.0 Dysuria; R35.0 Frequency of micturition; R10.9 Unspecified abdominal pain; M54.9 Dorsalgia, unspecified
CPT/HCPCS: 80053; 81001; 85025; 87086; 87389; 96374; 96375; 99283; J1885; J2405

== ENCOUNTER 2024-05-11 13:41 | Emergency (ER) | payer MEDICARE, OTHER, SELFPAY ==
[2024-05-11] VITALS (8 sets, daily range): BP systolic 131–157; BP diastolic 88–132; PULSE 62–106; RESP 16–18; TEMP 36.6–36.8; O2SAT 93–99; BMI 22.0
--- NOTE | 2024-05-11 13:44 | ED_ITS ---
Discharge Plan Disposition Patient Disposition: Home, Self-Care Condition: Good Prescriptions Prescriptions: New nitrofurantoin monohyd/m-cryst 100 mg capsule 100 mg PO BID 5 Days Qty: 10 0RF Rx Instructions: must administer with a meal/food No Action alendronate 10 mg tablet 10 mg PO DAILY 90 Days Qty: 90 2RF aspirin [Adult Low Dose Aspirin] 81 mg tablet,delayed release (DR/EC) 81 mg PO QDAY Qty: 90 0RF atorvastatin 80 mg tablet 80 mg PO DAILY 90 Days Qty: 90 2RF bisoprolol fumarate 5 mg tablet 2.5 mg PO DAILY Qty: 90 3RF meloxicam 7.5 mg tablet 7.5 mg PO DAILY Qty: 30 2RF ondansetron HCl 4 mg tablet 4 mg PO Q8H PRN (Reason: nausea and vomiting) 4 Days Qty: 14 0RF ciprofloxacin HCl 250 mg tablet 250 mg PO BID Qty: 14 0RF mravxaipjhrhuwf-czrfqexjx-MF [Bromfed DM] 2-30-10 mg/5 mL syrup 10 ml PO Q6H PRN (Reason: cold symptoms) Qty: 118 0RF hydroxyzine pamoate 50 mg capsule 50 mg PO TID PRN (Reason: anxiety) Qty: 90 0RF prasugrel [Effient] 10 mg tablet 10 mg PO DAILY Qty: 90 3RF omeprazole 40 mg capsule,delayed release(DR/EC) See Rx Instructions .ROUTE .COMPLEX Qty: 90 0RF Dose Instruction: TAKE 1 CAPSULE BY MOUTH ONCE DAILY Rx Instructions: TAKE 1 CAPSULE BY MOUTH ONCE DAILY hydroxyzine HCl 25 mg tablet 25 mg PO QID PRN (Reason: panic attack(s)) 30 Days Qty: 120 2RF quetiapine 200 mg tablet See Rx Instructions .ROUTE .COMPLEX Qty: 90 0RF Dose Instruction: TAKE 1 TABLET BY MOUTH AT BEDTIME Rx Instructions: TAKE 1 TABLET BY MOUTH AT BEDTIME cefdinir 300 mg capsule 300 mg PO BID 7 Days Qty: 14 0RF phenazopyridine 95 mg tablet 95 mg PO Q8H PRN (Reason: pain) Qty: 6 0RF Referrals Follow up/Referrals: Caryn Esposito APRN [Primary Care Provider] - See instructions Activity Restrictions/Add. Instructions Additional Instructions/Restrictions: Please take the new antibiotic I gave you till it is gone. Follow-up with your PCP at the first part of next week. Return for any worsening signs or symptoms as needed. You also need to talk to your mental health provider for better anxiety control as Vistaril is not appropriate as monotherapy. Again return to ER for any worsening signs or symptoms as needed. Clinical Impressions Clinical Impression: Abdominal pain, Urinary tract infection, FOZIA (generalized anxiety disorder) Print Language Print Language: Serbian Discharge ED Provider: Diana Bond General Adult HPI <NICKI Pan - Last Filed: 05/11/24 15:40> General Chief complaint: PAIN Stated complaint: shakes, anxiety, pain R side groin and back Time Seen by Provider: 05/11/24 13:44 History of Present Illness HPI narrative: Patient presents for abdominal pain. Patient was seen and examined approximate 1 week ago and diagnosed with a urinary tract infection sent out on antibiotics. However review of her records shows that the specimen was contaminated with multiple organisms thus speciation was not done. Patient presents for reported abdominal pain that actually predated her visit last week that has not improved. It is also not worsened. She does states that she has bilateral lower quadrant tenderness and she feels it radiates to her flanks. She denies urinary symptoms remarkably with no dysuria burning with urination increased frequency etc. She denies any fever chills hemoptysis hematochezia melena nausea vomit diarrhea. Patient also states that she feels extraordinarily anxious today. She has a longstanding history of anxiety managed with benzos since age 15 however in June of this year her benzodiazepine was discontinued in favor Vistaril. She is on no other therapy for anxiety management currently according to her. Although she does have Seroquel on her JUL. Related Data Previous Rx's ?Medication ?Instructions ?Recorded prasugrel 10 mg tablet (Effient) 10 mg PO DAILY #90 tabs 10/16/23 alendronate 10 mg tablet 10 mg PO DAILY 90 days #90 tabs 11/20/23 aspirin 81 mg tablet,delayed 81 mg PO QDAY Blood Thinner #11/20/23 release (Adult Low Dose Aspirin) tabs atorvastatin 80 mg tablet 80 mg PO DAILY 90 days #90 tabs 11/20/23 bisoprolol fumarate 5 mg tablet 2.5 mg (1/2 x 5 mg) PO DAILY #90 07/03/24 tabs meloxicam 7.5 mg tablet 7.5 mg PO DAILY #30 tabs 11/20/23 thellfzzimhhdbl-ehpevwyichuikqy-ZK 10 ml PO Q6H PRN cold symptoms 03/23/24 2 mg-30 mg-10 mg/5 mL oral syrup #118 mL (Bromfed DM) ciprofloxacin HCl 250 mg tablet 250 mg PO BID #14 tabs 03/23/24 ondansetron HCl 4 mg tablet 4 mg PO Q8H PRN nausea and 03/23/24 vomiting 4 days #14 tabs omeprazole 40 mg capsule,delayed See Rx Instructions .Route 03/31/24 release .COMPLEX #90 caps hydroxyzine HCl 25 mg tablet 25 mg PO QID PRN panic attack(s) 04/10/24 30 days #120 tabs quetiapine 200 mg tablet See Rx Instructions .Route 04/13/24 .COMPLEX #90 tabs hydroxyzine pamoate 50 mg capsule 50 mg PO TID PRN anxiety #90 caps 04/28/24 cefdinir 300 mg capsule 300 mg PO BID 7 days #14 caps 05/04/24 phenazopyridine 95 mg tablet 95 mg PO Q8H PRN pain 6 doses #6 05/04/24 tabs nitrofurantoin 100 mg PO BID 5 days #10 caps 05/11/24 monohydrate/macrocrystals 100 mg capsule Allergies Allergy/AdvReac Type Severity Reaction Status Date / Time No Known Allergies Allergy Verified 04/28/24 10:01 [facility] <NICKI Pan - Last Filed: 05/11/24 15:40> [facility] Disclaimer: The information contained in this section may have been updated after the patient was seen, as this information can be updated by other users. Medical History Generalized anxiety disorder Coronary artery disease Dyspnea HTN (hypertension) Alcoholism in recovery Abnormal ECG Pain Hyperlipidemia Chronic back pain greater than 3 months duration Anxiety Family History Other Family history of diabetes mellitus type II Family history of myocardial infarction Social History Smoking Status: Former smoker tobacco type: cigarettes packs per day: 1 alcohol intake: former substance use type: former substance user and heroin current occupational status: disabled Travel in the last 8 weeks: None household members: none housing: apartment Have you lived/traveled outside [place] in past 30 days?: No Contact w/someone who lives/traveled outside [place] past 30 days?: No Exposure to someone with infectious disease in past 14 days?: No Do you have a fever (greater than 100.4 F or 38 C)?: No Have you tested positive for COVID-19: No Exposed to someone with COVID-19 in past 14 days?: No Do you have a sore throat?: No Do you have a cough?: No Do you have any weakness?: No Do you have any diarrhea?: No Are you experiencing any unusual bleeding?: No Do you have any muscle aches/pain?: No Do you have any abdominal pain?: No Are you experiencing loss of taste or smell?: No Other Medical History Have you received the Flu Vaccine for this season: Yes Have you received the Pneumonia Vaccine: No <NICKI Pan - Last Filed: 05/11/24 15:40> ROS Obtained: Yes Systems reviewed as appropriate & no additional complaints except as documented Physical Exam <NICKI Pan - Last Filed: 05/11/24 15:40> General General appearance: alert and in no apparent distress Respiratory Respiratory exam: Present normal lung sounds bilaterally Cardiovascular Cardiovascular exam: Present regular rate Neurological Exam Neurological exam: Present alert and oriented X3 Skin Skin exam: Present dry Medical Decision Making <NICKI Pan - Last Filed: 05/11/24 15:40> Medical Records Medical records reviewed: Yes I reviewed the patient's medical records. Screening: Per USPSTF and CDC recommendations, given the prevalence of disease in our region, it is our hospital?s policy to screen for HIV and viral Hepatitis for all patients aged 18 and over and those with ongoing risk factors. Amos Inquiry Pt receiving controlled substance: No Vital Signs: 05/11/24 13:42 05/11/24 13:51 05/11/24 13:52 Temperature 98.3 F Temperature Source Oral Pulse Rate 102 H 106 H Pulse Rate [Left Radial] 62 Respiratory Rate 17 Blood Pressure 155/132 H 157/105 H Blood Pressure [Right Arm] 157/88 H Blood Pressure Mean Blood Pressure Mean [Right Arm] 111 Blood Pressure Source Blood Pressure Source [Right Arm] Automatic Cuff Blood Pressure Position Blood Pressure Position [Right Arm] Sitting 02 Sat by Pulse Oximetry 95 98 99 Oxygen Delivery Method Room Air Room Air Room Air 05/11/24 14:00 05/11/24 14:31 05/11/24 15:01 Temperature Temperature Source Pulse Rate 90 77 87 Pulse Rate [Left Radial] Respiratory Rate 16 Blood Pressure 155/95 H 157/88 H 145/97 H Blood Pressure [Right Arm] Blood Pressure Mean 113 Blood Pressure Mean [Right Arm] Blood Pressure Source Blood Pressure Source [Right Arm] Blood Pressure Position Blood Pressure Position [Right Arm] 02 Sat by Pulse Oximetry 98 98 99 Oxygen Delivery Method Room Air Room Air 05/11/24 15:30 05/11/24 15:41 Temperature 97.9 F Temperature Source Oral Pulse Rate 75 71 Pulse Rate [Left Radial] Respiratory Rate 18 Blood Pressure 131/97 H 144/96 H Blood Pressure [Right Arm] Blood Pressure Mean Blood Pressure Mean [Right Arm] Blood Pressure Source Automatic Cuff Blood Pressure Source [Right Arm] Blood Pressure Position Sitting Blood Pressure Position [Right Arm] 02 Sat by Pulse Oximetry 95 Oxygen Delivery Method Room Air Room Air Lab Data Lab results reviewed: Yes I reviewed the patient's lab results. Lab Results 05/11/24 14:14: Urine Color Yellow, Urine Appearance Clear, Urine pH 6.0, Ur Specific [place] <= 1.005, Urine Protein Negative, Urine Glucose (UA) Negative, Urine Ketones Negative, Urine Blood Negative, Urine Nitrate Negative, Urine Bilirubin Negative, Urine Urobilinogen 0.2, Ur Leukocyte Esterase Negative, Urine RBC 3-5, Urine WBC 5-10, Ur Squamous Epith Cells 10-20, Urine Bacteria 1+ Orders (Tests/Meds): ED MEDICATIONS Discontinued Medications Generic Name Dose Route Start Last Admin Trade Name Freq PRN Reason Stop Dose Admin Diazepam 5 mg 05/11/24 14:30 05/11/24 14:53 Diazepam 5mg Tablet PO 05/11/24 14:31 5 mg ONCE ONE Administration ORDERS Category Date Time Status CBC w/Auto Diff [Complete Blood Count Auto Diff] Stat Lab 05/11/24 13:56 Ordered CMP [Comprehensive Metabolic Panel] Stat Lab 05/11/24 13:56 Ordered UA [Urinalysis and Microscopic] Stat Lab 05/11/24 14:14 Completed Medical Decision Narrative: In summary patient is a 63-year-old female who presents to the emergency department for evaluation of abdominal pain and anxiety. Patient is hemodynamically stable upon arrival, afebrile. Zickel exam however is very unremarkable with no reproducible abdominal pain on exam with a soft abdomen without rebound or guarding or rigidity. With normal bowel sounds.. Differential diagnosis includes UTI versus anxiety versus pyelonephritis etc. Initial workup will be conducted with cath UA CBC CMP. Initial interventions include Toradol Tylenol Valium. Initial workup reviewed by me catheterized specimen shows 5-10 red cells 5-10 white cells 10-20 epithelial cells and 1+ bacteria after completion of her Omnicef. Upon repeat evaluation patient actually reported improved abdominal pain after administration of Toradol Tylenol and Valium. Given this I will change the patient's antibiotic to Macrobid until urine culture and speciation and recommend the patient refollow- up with behavioral health for a better anxiety regimen other than Vistaril as it is not appropriate for monotherapy. <Diana Bond MD - Last Filed: 05/11/24 16:02> Vital Signs: 05/11/24 13:42 05/11/24 13:51 05/11/24 13:52 Temperature 98.3 F Temperature Source Oral Pulse Rate 102 H 106 H Pulse Rate [Left Radial] 62 Respiratory Rate 17 Blood Pressure 155/132 H 157/105 H Blood Pressure [Right Arm] 157/88 H Blood Pressure Mean Blood Pressure Mean [Right Arm] 111 Blood Pressure Source Blood Pressure Source [Right Arm] Automatic Cuff Blood Pressure Position Blood Pressure Position [Right Arm] Sitting 02 Sat by Pulse Oximetry 95 98 99 Oxygen Delivery Method Room Air Room Air Room Air 05/11/24 14:00 05/11/24 14:31 05/11/24 15:01 Temperature Temperature Source Pulse Rate 90 77 87 Pulse Rate [Left Radial] Respiratory Rate 16 Blood Pressure 155/95 H 157/88 H 145/97 H Blood Pressure [Right Arm] Blood Pressure Mean 113 Blood Pressure Mean [Right Arm] Blood Pressure Source Blood Pressure Source [Right Arm] Blood Pressure Position Blood Pressure Position [Right Arm] 02 Sat by Pulse Oximetry 98 98 99 Oxygen Delivery Method Room Air Room Air 05/11/24 15:30 05/11/24 15:41 Temperature 97.9 F Temperature Source Oral Pulse Rate 75 71 Pulse Rate [Left Radial] Respiratory Rate 18 Blood Pressure 131/97 H 144/96 H Blood Pressure [Right Arm] Blood Pressure Mean Blood Pressure Mean [Right Arm] Blood Pressure Source Automatic Cuff Blood Pressure Source [Right Arm] Blood Pressure Position Sitting Blood Pressure Position [Right Arm] 02 Sat by Pulse Oximetry 95 Oxygen Delivery Method Room Air Room Air Lab Data Lab Results 05/11/24 14:14: Urine Color Yellow, Urine Appearance Clear, Urine pH 6.0, Ur Specific [place] <= 1.005, Urine Protein Negative, Urine Glucose (UA) Negative, Urine Ketones Negative, Urine Blood Negative, Urine Nitrate Negative, Urine Bilirubin Negative, Urine Urobilinogen 0.2, Ur Leukocyte Esterase Negative, Urine RBC 3-5, Urine WBC 5-10, Ur Squamous Epith Cells 10-20, Urine Bacteria 1+ Orders (Tests/Meds): ED MEDICATIONS Discontinued Medications Generic Name Dose Route Start Last Admin Trade Name Freq PRN Reason Stop Dose Admin Diazepam 5 mg 05/11/24 14:30 05/11/24 14:53 Diazepam 5mg Tablet PO 05/11/24 14:31 5 mg ONCE ONE Administration ORDERS Category Date Time Status CBC w/Auto Diff [Complete Blood Count Auto Diff] Stat Lab 05/11/24 13:56 Ordered CMP [Comprehensive Metabolic Panel] Stat Lab 05/11/24 13:56 Ordered UA [Urinalysis and Microscopic] Stat Lab 05/11/24 14:14 Completed Medical Decision Narrative: In summary patient is a 63-year-old female who presents to the emergency department for evaluation of abdominal pain and anxiety. Patient is hemodynamically stable upon arrival, afebrile. Zickel exam however is very unremarkable with no reproducible abdominal pain on exam with a soft abdomen wi thout rebound or guarding or rigidity. With normal bowel sounds.. Differential diagnosis includes UTI versus anxiety versus pyelonephritis etc. Initial workup will be conducted with cath UA CBC CMP. Initial interventions include Toradol Tylenol Valium. Initial workup reviewed by me catheterized specimen shows 5-10 red cells 5-10 white cells 10-20 epithelial cells and 1+ bacteria after completi on of her Omnicef. Upon repeat evaluation patient actually reported improved abdominal pain after administration of Toradol Tylenol and Valium. Given this I will change the patient's antibiotic to Macrobid until urine culture and speciation and recommend the patient refollow-up with behavioral health for a better anxiety regimen other than Vistaril as it is not appropriate for monotherapy. Bond: I agree with the assessment and plan of the RYLEY. Patient has symptoms consistent with urinary tract infection versus cystitis versus bladder spasm. She has an extremely benign abdominal exam though she reports pain, she talks through the entire exam and has no guarding or rebound. Given the duration of her symptoms I have extremely low suspicion for dangerous pathology. Catheterized specimen does have bacteria which is concerning for persistent infection as a catheterized specimen should not be contaminated. Urine specimens in the past grew multiple organisms, no speciation or susceptibility available. Patient will be placed on Macrobid. As far as her anxiety, she was referred to behavioral health. She is appropriate for discharge. I was consulted by the RYLEY, and we discussed the complexity of problems being addressed. I approved the treatment and management plan for this patient's care in the emergency department, thus performing a substantial portion of the medical decision making. Diana Bond MD Critical Care <NICKI Pan - Last Filed: 05/11/24 15:40> Critical Care Time Critical Care Time: No
[2024-05-11 14:03] LABS: Microscopic, Urine URINE MICROSCOPIC (MICROSCOPIC)
[2024-05-11 14:23] LABS: Appearance,Urine CLEAR (Clear); Bilirubin,Urine Negative (Negative); Blood, Urine Negative (Negative); Color,Urine YELLOW (Yellow); Glucose,Urine (UA) Negative (Negative); Ketones,Urine Negative (Negative); Leukocyte Esterase,Urine Negative (Negative); Nitrate,Urine Negative (Negative); Protein,Urine Negative (Negative); Specific Gravity, Urine <= 1.005 (1.005-1.030); Urobilinogen,Urine 0.2 EU/dl (0.2)
[2024-05-11 14:43] LABS: Bacteria,Urine 1+ /lpf
[2024-05-11] MEDS: diazePAM 5MG TABLET 5 MG PO (14:53)
== END 2024-05-11 15:43 | disposition home or self-care (01) ==
PROVIDERS: Physician Assistant; Emergency Provider Emergency Medicine; PCP Family Medicine
DX: N39.0 Urinary tract infection, site not specified (principal); F41.1 Generalized anxiety disorder; R10.31 Right lower quadrant pain; R10.32 Left lower quadrant pain
CPT/HCPCS: 81001; 99283

== ENCOUNTER 2024-05-15 18:15 | Outpatient (CLI) | payer MEDICARE, OTHER, SELFPAY | END 2024-05-15 23:59 | disposition home or self-care (01) | LOC: LAB.DROPOF 18:19 | PROVIDERS: PCP Family Medicine; Visit Provider Family Medicine | DX: N39.0 Urinary tract infection, site not specified (principal); R39.9 Unspecified symptoms and signs involving the genitourinary system | CPT/HCPCS: 87086 ==

== ENCOUNTER 2024-06-23 07:53 | Outpatient (CLI) | payer MEDICARE, OTHER, SELFPAY ==
--- NOTE | 2024-06-23 08:09 | CT_ITS ---
FINAL REPORT TECHNIQUE: Axial CT images of the abdomen and pelvis were obtained before and after the administration of IV contrast. Oral contrast was administered. Coronal and sagittal reconstructed images were also obtained and reviewed. This study was performed with techniques to keep radiation doses as low as reasonably achievable (ALARA). Individualized dose reduction techniques using automated exposure control or adjustment of mA and/or kV according to the patient's size were employed. CLINICAL HISTORY: abd pain, possible divercitular disease COMPARISON: None FINDINGS: CT OF THE ABDOMEN AND PELVIS WITH AND WITHOUT CONTRAST Abdomen: There is a calcified granuloma at the right base. The heart is normal in size. There is fatty infiltration of the liver. The gallbladder is present. The spleen is unremarkable. No adrenal mass is present. The pancreas has an unremarkable appearance. The kidneys are normal, without evidence of mass or hydronephrosis. The aorta is normal in caliber. There is no free fluid or adenopathy. No mass or abnormal fluid collection is seen. Pelvis: The appendix is unremarkable. The urinary bladder has a normal size configuration. No inflammatory process is seen. There is no evidence of mass or adenopathy. There is no evidence of bowel obstruction. Precontrast imaging demonstrates no evidence of nephrolithiasis. Scattered diverticula are noted throughout the descending and sigmoid colon. There is asymmetric subcutaneous soft tissue stranding in the inferior medial left gluteal region. This is incompletely visualized but is of uncertain significance. This is best seen on image #132 of series 5. IMPRESSION: Fatty liver. Scattered diverticula throughout the descending and sigmoid colon. Subcutaneous soft tissue stranding inferior medial left gluteal region of uncertain significance. Reviewed, Interpreted and Dictated by Gregor Welsh MD Transcribed by Caterina Paez Authenticated and [facility]
--- NOTE | 2024-06-23 08:23 | US_ITS ---
FINAL REPORT CLINICAL HISTORY: chronic uti FINDINGS: Limited sonographic images of the urinary bladder were obtained. Urinary bladder filled is 32 mL. Postvoid volume is 5.2 mL. IMPRESSION: Negligible residual. Reviewed, Interpreted and Dictated by Gregor Welsh MD Transcribed by Angela Morgan Authenticated and [facility]
[2024-06-23 08:31] LABS: Blood Urea Nitrogen 5 mg/dl (7-17); Estimated Glomerular Filt Rate 100 ml/min (>60); GFR (African American) 121 ML/MIN (>60)
[2024-06-23] MEDS: IOPAMIDOL-370 (76%);100ML BOTTLE 75 ML IV (11:45)
[2024-06-23] MEDS: SODIUM CHLORIDE 0.9% 10ML SYR (RAD ONLY) 10 ML IV (11:45)
== END 2024-06-23 23:59 | disposition home or self-care (01) ==
LOC: RAD 08:00
PROVIDERS: PCP Family Medicine; Visit Provider Family Medicine
DX: R10.84 Generalized abdominal pain (principal); N39.0 Urinary tract infection, site not specified; R39.198 Other difficulties with micturition; R30.0 Dysuria; R11.2 Nausea with vomiting, unspecified; K57.90 Diverticulosis of intestine, part unspecified, without perforation or abscess without bleeding; R31.9 Hematuria, unspecified
CPT/HCPCS: 36415; 74178; 76857; 82565; 84520; Q9967

== ENCOUNTER 2024-07-13 14:00 | Outpatient (CLI) | payer MEDICARE, OTHER, SELFPAY ==
[2024-07-13 16:04] LABS: Microscopic, Urine URINE MICROSCOPIC (MICROSCOPIC)
[2024-07-13 17:41] LABS: Appearance,Urine CLEAR (Clear); Bilirubin,Urine Negative (Negative); Blood, Urine Negative (Negative); Color,Urine YELLOW (Yellow); Glucose,Urine (UA) Negative (Negative); Ketones,Urine Negative (Negative); Leukocyte Esterase,Urine 3+ (Negative); Nitrate,Urine Negative (Negative); Protein,Urine Negative (Negative); Urobilinogen,Urine 0.2 EU/dl (0.2)
[2024-07-13 18:05] LABS: Bacteria,Urine 1+ /lpf
== END 2024-07-13 23:59 | disposition home or self-care (01) ==
LOC: LAB.DROPOF 07-14 16:38
PROVIDERS: PCP Urology; Visit Provider Urology
DX: N39.0 Urinary tract infection, site not specified (principal)
CPT/HCPCS: 81001; 87086

== ENCOUNTER 2024-07-28 17:43 | Emergency (ER) | payer MEDICARE, OTHER, SELFPAY ==
[2024-07-28 17:48] VITALS: BP 137/86; PULSE 102; RESP 18; TEMP 37; O2SAT 98; BMI 23.3
--- NOTE | 2024-07-28 17:54 | XR_ITS ---
PROCEDURE INFORMATION: Exam: XR Right Knee Exam date and time: 07/28/2024 6:06 PM Age: 63 years old Clinical indication: Other: Knee swelling TECHNIQUE: Imaging protocol: Radiologic exam of the right knee. Views: 3 views. COMPARISON: No relevant prior studies available. FINDINGS: Bones/joints: There is no evidence of acute fracture.There is no evidence of malalignment or dislocation. Soft tissues: Normal. IMPRESSION: There is no evidence of acute fracture.There is no evidence of malalignment or dislocation.
--- NOTE | 2024-07-28 17:57 | PC.NURSE ---
pt brought back from triage to RM 6 pt c/o R knee pain that is 8/10 and sharp/squeezing in nature. pt states the pain is worse with wt bearing. pt states in early May she fell on her deck and landed on her R knee. She states she was never seen but the pain has not improved at all. pt does not take any blood thinners. pts R knee is warm and edematous. pt has positive popliteal pulses.
--- NOTE | 2024-07-28 18:06 | PC.NURSE ---
portable rad at [facility]
--- NOTE | 2024-07-28 18:18 | HMH.EDGENADL ---
Discharge Plan Disposition Patient Disposition: Home, Self-Care Condition: Good Prescriptions Prescriptions: New indomethacin 25 mg capsule 25 mg PO BID Qty: 60 0RF Rx Instructions: administer with food or milk methocarbamol 750 mg tablet 750 mg PO HS Qty: 30 0RF No Action estradiol [Estrace] 0.01 % (0.1 mg/gram) cream 1 appful vaginal DAILY Qty: 42.5 2RF Rx Instructions: Use dailyWith finger technique as described. Do not use the vaginal inserts. Do daily for 14 days and then 3 times weekly long-term. quetiapine 200 mg tablet See Rx Instructions .ROUTE .COMPLEX Qty: 90 0RF Dose Instruction: TAKE 1 TABLET BY MOUTH AT BEDTIME Rx Instructions: TAKE 1 TABLET BY MOUTH AT BEDTIME hydroxyzine pamoate 50 mg capsule See Rx Instructions .ROUTE .COMPLEX Qty: 90 0RF Dose Instruction: TAKE 1 CAPSULE BY MOUTH THREE TIMES DAILY NEEDED FOR ANXIETY Rx Instructions: TAKE 1 CAPSULE BY MOUTH THREE TIMES DAILY NEEDED FOR ANXIETY Referrals Follow up/Referrals: Caryn Esposito APRN [Primary Care Provider] - See instructions Ambrosio Mattson DO [Staff Physician] - See instructions (Right knee pain) Clinical Impressions Clinical Impression: Knee pain, right Instructions Patient Instructions: DI for Knee Pain Print Language Print Language: Ecuad[place] Discharge ED Provider: Vicente Pak General Adult HPI <NICKI Lindsay - Last Filed: 07/28/24 19:16> General Chief complaint: PAIN Stated complaint: RT knee swollen, painful Time Seen by Provider: 07/28/24 18:09 Mode of Arrival: Ambulatory Source of Information: Patient Description of Symptoms (Recalled from ER Triage Doc. by RN): Pt presents for evaluation of right knee pain. Pt called her orthopedic provider and they advised her to come in and be seen. Pt knee is swollen and warm to the touch x 4 days. Pain has been worse the last 2 days. History of Present Illness HPI narrative: 63-year-old female presents to the emergency department with right knee pain, no trauma, patient states for the last 4 to 5 days she has had increasing pain, and some difficulty ambulating due to pain as well as some swelling. Patient states she called her orthopedic provider who instructed her to come to the emergency department. Patient had a remote fall back in May 2024, where she injured her knee, no recent fall or trauma but does state that her knee pain is worsened since her fall. Patient denies any fever chills chest pain shortness of breath nausea vomiting constipation diarrhea no abdominal pain, urinary type symptomatology. 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 No distress vitals grossly unremarkable. Other past medical history consistent with degenerative disc disease of lumbar spine, data deficient knee surgery on the left knee. No surgeries on the right, hypertension, chronic pain syndrome, anxiety/depression. Onset (ago): day(s) Related Data Previous Rx's ?Medication ?Instructions ?Recorded estradiol 0.01% (0.1 mg/gram) 1 appful vaginal DAILY #42.5 grams 07/13/24 vaginal cream (Estrace) quetiapine 200 mg tablet See Rx Instructions .Route 07/16/24 .COMPLEX #90 tabs hydroxyzine pamoate 50 mg capsule See Rx Instructions .Route 07/21/24 .COMPLEX #90 caps indomethacin 25 mg capsule 25 mg PO BID #60 caps 07/28/24 methocarbamol 750 mg tablet 750 mg PO HS #30 tabs 07/28/24 Allergies Allergy/AdvReac Type Severity Reaction Status Date / Time No Known Allergies Allergy Verified 07/28/24 18:11 [facility] <NICKI Lindsay - Last Filed: 07/28/24 19:16> [facility] Disclaimer: The information contained in this section may have been updated after the patient was seen, as this information can be updated by other users. Medical History Generalized anxiety disorder Coronary artery disease Dyspnea HTN (hypertension) Alcoholism in recovery Follow for now. Urine screens have not revealed any alcohol metabolites at this point. Abnormal ECG Pain Hyperlipidemia Chronic back pain greater than 3 months duration Patient is currently on oxycodone/APAP. She has a long history of substance abuse. However she has been clean for over 4 years. I am a bit concerned about this as she is not following up with an addiction or substance dependency clinic at this time. Will really address this issue when she returns. In the interim we will stop the Robaxin, stop the tramadol, and give her a trigger point injection on Saturday. Anxiety Family History Other Family history of diabetes mellitus type II Family history of myocardial infarction Social History Smoking Status: Current every day smoker tobacco type: cigarettes packs per day: 1 alcohol intake: former substance use type: former substance user and heroin current occupational status: disabled Travel in the last 8 weeks: None household members: none housing: apartment Have you lived/traveled outside [place] in past 30 days?: No Contact w/someone who lives/traveled outside [place] past 30 days?: No Exposure to someone with infectious disease in past 14 days?: No Do you have a fever (greater than 100.4 F or 38 C)?: No Have you tested positive for COVID-19: No Exposed to someone with COVID-19 in past 14 days?: No Do you have a sore throat?: No Do you have a cough?: No Do you have any weakness?: No Do you have any diarrhea?: No Are you experiencing any unusual bleeding?: No Do you have any muscle aches/pain?: No Do you have any abdominal pain?: No Are you experiencing loss of taste or smell?: No Other Medical History Have you received the Flu Vaccine for this season: Yes Have you received the Pneumonia Vaccine: No <NICKI Lindsay - Last Filed: 07/28/24 19:16> ROS Obtained: Yes All systems reviewed & no additional complaints except as documented Physical Exam <NICKI Lindsay - Last Filed: 07/28/24 19:16> General General appearance: alert and in no apparent distress Head Head exam: atraumatic and normocephalic Eye Eye exam: Present PERRL and EOMI ENT ENT exam: Present mucous membranes moist Neck Neck exam: Present normal inspection Chest Chest inspection: Present normal inspection and symmetric chest wall rise Respiratory Respiratory exam: Present normal lung sounds bilaterally; Absent respiratory distress, wheezes or stridor Cardiovascular Cardiovascular exam: Present regular rate and normal rhythm Abdominal Exam Abdominal exam: Present soft; Absent tenderness, guarding, rebound or rigidity Extremities Exam Extremities exam: Present normal inspection, tenderness, joint swelling and other (Patient is some pain limiting range of motion with flexion of her right knee, no difficulties with extension negative Rebeca sign, otherwise neurovascular intact.); Absent full ROM, edema or calf tenderness Neurological Exam Neurological exam: Present alert and oriented X3 Psychiatric Psychiatric exam: Present normal affect Skin Skin exam: Present warm and dry Medical Decision Making <NICKI Lindsay - Last Filed: 07/28/24 19:16> Medical Records Medical records reviewed: Yes I reviewed the patient's medical records. Screening: Per USPSTF and CDC recommendations, given the prevalence of disease in our region, it is our hospital?s policy to screen for HIV and viral Hepatitis for all patients aged 18 and over and those with ongoing risk factors. Amos Inquiry Pt receiving controlled substance: No Amos was queried for this patient: No Vital Signs: 07/28/24 17:48 07/28/24 18:30 07/28/24 19:00 Temperature 98.6 F Temperature Source Temporal Artery Scan Pulse Rate 94 H 60 Pulse Rate [Right] 102 H Respiratory Rate 18 Blood Pressure 136/90 129/86 Blood Pressure [Right Arm] 137/86 Blood Pressure Mean [Right Arm] 103 Blood Pressure Source [Right Arm] Automatic Cuff Blood Pressure Position [Right Arm] Sitting 02 Sat by Pulse Oximetry 98 93 L 100 Oxygen Delivery Method Room Air Room Air Orders (Tests/Meds): ORDERS Category Date Time Status Knee XR right 3 views [XR knee RT 3V] Stat Exams 07/28/24 17:54 Completed POCUS Point of Care (ER Only) Stat Exams 07/28/24 19:01 Ordered Medical Decision Narrative: 63-year-old female presents emergency room with right knee pain, differential diagnosis, not limited to gouty arthritis, osteoarthritis, bursitis, knee fracture, knee sprain/strain, ligamentous injury, arthritis. Discussed patient case with conversion Dr. Pak he saw and examined the patient as well. Obtain plain film x-rays of the right knee bedside POCUS ultrasound. I reviewed the patient's x-ray of the knee on the right along with the corresponding radiologic report there is no evidence of acute fracture no evidence of malalignment or dislocation. After examination, patient has good passive range of motion, has joint effusion/possible potential bursitis versus midline joint effusion, this is not septic arthritis at this time, no erythema, no fever or chills, patient has had gradually worsening pain and swelling after her injury several months ago. Patient was advised strict ED return precaution she has orthopedic follow-up upcoming in the next several days. Recommend keep that appointment. Patient voiced understand agree with current treatment plan/discharge plan, upon leaving the room patient would like me to discharge her home with some muscle relaxers , she tells me that this helped with her previous pain. Will give her Robaxin-750 mg, and indomethacin she will take with food. <Vicente Pak MD - Last Filed: 07/28/24 19:25> Vital Signs: 07/28/24 17:48 07/28/24 18:30 07/28/24 19:00 Temperature 98.6 F Temperature Source Temporal Artery Scan Pulse Rate 94 H 60 Pulse Rate [Right] 102 H Respiratory Rate 18 Blood Pressure 136/90 129/86 Blood Pressure [Right Arm] 137/86 Blood Pressure Mean [Right Arm] 103 Blood Pressure Source [Right Arm] Automatic Cuff Blood Pressure Position [Right Arm] Sitting 02 Sat by Pulse Oximetry 98 93 L 100 Oxygen Delivery Method Room Air Room Air Orders (Tests/Meds): ORDERS Category Date Time Status Knee XR right 3 views [XR knee RT 3V] Stat Exams 07/28/24 17:54 Completed POCUS Point of Care (ER Only) Stat Exams 07/28/24 19:01 Ordered Medical Decision Narrative: 63-year-old female presents emergency room with right knee pain, differential diagnosis, not limited to gouty arthritis, osteoarthritis, bursitis, knee fracture, knee sprain/strain, ligamentous injury, arthritis. Discussed patient case with conversion Dr. Pak he saw and examined the patient as well. Obtain plain film x-rays of the right knee bedside POCUS ultrasound. I reviewed the patient's x-ray of the knee on the right along with the corresponding radiologic report there is no evidence of acute fracture no evidence of malalignment or dislocation. After examination, patient has good passive range of motion, has joint effusion/possible potential bursitis versus midline joint effusion, this is not septic arthritis at this time, no erythema, no fever or chills, patient has had gradually worsening pain and swelling after her injury several months ago. Patient was advised strict ED return precaution she has orthopedic follow-up upcoming in the next several days. Recommend keep that appointment. Patient voiced understand agree with current treatment plan/discharge plan, upon leaving the room patient would like me to discharge her home with some muscle relaxers , she tells me that this helped with her previous pain. Will give her Robaxin-750 mg, and indomethacin she will take with food. I was consulted by the RYLEY, and we discussed the complexity of the problems being addressed. I approved the treatment and management plan for this patient's care in the emergency department, thus performing a substantive portion of the medical decision making. I personally saw this patient, patient does have a knee effusion on the right however has preserved active and passive range of motion, does not have any temperature difference compared to the other knee, no overlying redness. Given that this has happened progressively since a traumatic incident I have low suspicion for septic arthritis at this time and given this we will defer arthrocentesis. Patient was given multiple return precautions verbalized understanding and will follow-up on Saturday with Dr. Mattson. Vicente Pak MD Critical Care <NICKI Lindsay - Last Filed: 07/28/24 19:16> Critical Care Time Critical Care Time: No
[2024-07-28 18:30] VITALS: BP 136/90; PULSE 94; O2SAT 93
[2024-07-28 19:00] VITALS: BP 129/86; PULSE 60; O2SAT 100
[2024-07-28 19:25] VITALS: BP 129/86; PULSE 89; RESP 18; TEMP 36.7; O2SAT 98
== END 2024-07-28 19:26 | disposition home or self-care (01) ==
PROVIDERS: Emergency Provider Emergency Medicine; PCP Family Medicine
DX: M25.561 Pain in right knee (principal); F17.210 Nicotine dependence, cigarettes, uncomplicated
CPT/HCPCS: 73562; 99283

== ENCOUNTER 2024-10-05 17:21 | Emergency (ER) | payer MEDICARE, OTHER, SELFPAY ==
[2024-10-05] VITALS (9 sets, daily range): BP systolic 119–158; BP diastolic 78–107; PULSE 62–80; RESP 16; TEMP 36.3; O2SAT 94–98; BMI 22.0
--- NOTE | 2024-10-05 19:50 | ED_ITS ---
Discharge Plan Disposition Patient Disposition: Home, Self-Care Condition: Good Prescriptions Prescriptions: No Action estradiol [Estrace] 0.01 % (0.1 mg/gram) cream 1 appful vaginal DAILY Qty: 42.5 2RF Rx Instructions: Use dailyWith finger technique as described. Do not use the vaginal inserts. Do daily for 14 days and then 3 times weekly long-term. quetiapine 200 mg tablet See Rx Instructions .ROUTE .COMPLEX Qty: 90 0RF Dose Instruction: TAKE 1 TABLET BY MOUTH AT BEDTIME Rx Instructions: TAKE 1 TABLET BY MOUTH AT BEDTIME diclofenac sodium 75 mg Tablet,Delayed Release (Dr/Ec) 75 mg PO BID tizanidine 4 mg Capsule 4 mg PO HS PRN (Reason: .) omeprazole 40 mg capsule,delayed release(DR/EC) 40 mg PO DAILY Qty: 90 0RF hydroxyzine pamoate 50 mg capsule See Rx Instructions .ROUTE .COMPLEX Qty: 90 0RF Dose Instruction: TAKE 1 CAPSULE BY MOUTH THREE TIMES DAILY NEEDED FOR ANXIETY Rx Instructions: TAKE 1 CAPSULE BY MOUTH THREE TIMES DAILY NEEDED FOR ANXIETY Referrals Follow up/Referrals: Caryn Esposito APRN [Primary Care Provider] - See instructions Activity Restrictions/Add. Instructions Additional Instructions/Restrictions: You were evaluated in the ER and are believed to be appropriate for discharge at this time. Continue all home medications as previously prescribed. Call your primary care doctor first thing in the morning for immediate outpatient follow- up. Return to the ER with any new, worsening, or otherwise concerning symptoms. Clinical Impressions Clinical Impression: Knee pain, right Print Language Print Language: Bulgarian Discharge ED Provider: Vicente Pak General Adult HPI <NICKI Pan - Last Filed: 10/05/24 22:23> General Chief complaint: Extremity Injury, Lower Stated complaint: Issues with R Knee Time Seen by Provider: 10/05/24 19:50 History of Present Illness HPI narrative: Patient presents for evaluation of right knee pain. Patient has had a longstanding history of right knee pain. She was referred by her PCP to Dr. Mattson in [facility] in June or July of this year. She unfortunately was not able to keep her appointment. Patient states that her pain is gotten worse and now has swelling. She denies any fever chills hemoptysis hematochezia melena nausea vomiting diarrhea. She denies any known injury recently however she has hurt this knee in the past but did not require any type of surgical intervention previously. Related Data Home Medications ?Medication ?Instructions ?Recorded ?Confirmed diclofenac sodium 75 mg 75 mg PO BID 08/06/24 tablet,delayed release tizanidine 4 mg capsule 4 mg PO HS PRN . 08/06/24 Previous Rx's ?Medication ?Instructions ?Recorded estradiol 0.01% (0.1 mg/gram) 1 appful vaginal DAILY #42.5 grams 07/13/24 vaginal cream (Estrace) quetiapine 200 mg tablet See Rx Instructions .Route 07/16/24 .COMPLEX #90 tabs omeprazole 40 mg capsule,delayed 40 mg PO DAILY #90 caps 09/14/24 release hydroxyzine pamoate 50 mg capsule See Rx Instructions .Route 09/28/24 .COMPLEX #90 caps Allergies Allergy/AdvReac Type Severity Reaction Status Date / Time No Known Allergies Allergy Verified 07/28/24 18:11 [facility] <NICKI Pan - Last Filed: 10/05/24 22:23> [facility] Disclaimer: The information contained in this section may have been updated after the patient was seen, as this information can be updated by other users. Medical History (Updated 10/06/24 @ 01:21 by Diana Bond MD) Neuropathy Broken collarbone Urinary tract infection Migraine Irritable bowel syndrome (IBS) History of gastroesophageal reflux (GERD) Heart attack Generalized anxiety disorder Coronary artery disease Dyspnea HTN (hypertension) Alcoholism in recovery Abnormal ECG Pain Hyperlipidemia Chronic back pain greater than 3 months duration Anxiety Surgical History (Updated 08/06/24 @ 15:09 by Tracy Gray RN) H/O tubal ligation History of hand surgery History of knee surgery History of back surgery H/O section Hx of cataract surgery History of eye surgery History of surgery Family History Other Family history of diabetes mellitus type II Family history of myocardial infarction Social History (Updated 08/06/24 @ 15:03 by Tracy Gray RN) Smoking Status: Current every day smoker tobacco type: cigarettes packs per day: 1 alcohol intake: former substance use type: former substance user and heroin current occupational status: disabled Travel in the last 8 weeks?: None household members: none housing: apartment Have you lived/traveled outside US in past 30 days?: No Contact w/someone who lives/traveled outside US past 30 days?: No Exposure to someone with infectious disease in past 14 days?: No Do you have a fever (greater than 100.4 F or 38 C)?: No Have you tested positive for COVID-19?: No Exposed to someone with COVID-19 in past 14 days?: No Do you have a sore throat?: No Do you have a cough?: No Do you have any weakness?: No Do you have any diarrhea?: No Are you experiencing any unusual bleeding?: No Do you have any muscle aches/pain?: No Do you have any abdominal pain?: No Are you experiencing loss of taste or smell?: No Other Medical History Have you received the Flu Vaccine for this season: Yes Have you received the Pneumonia Vaccine: No <NICKI Pan - Last Filed: 10/05/24 22:23> ROS Obtained: Yes Systems reviewed as appropriate & no additional complaints except as documented Physical Exam <NICKI Pan - Last Filed: 10/05/24 22:23> General General appearance: alert and in no apparent distress Respiratory Respiratory exam: Present normal lung sounds bilaterally Cardiovascular Cardiovascular exam: Present regular rate Neurological Exam Neurological exam: Present alert and oriented X3 Medical Decision Making <NICKI Pan - Last Filed: 10/05/24 22:23> Medical Records Medical records reviewed: Yes I reviewed the patient's medical records. Screening: Per USPSTF and CDC recommendations, given the prevalence of disease in our region, it is our hospital?s policy to screen for HIV and viral Hepatitis for all patients aged 18 and over and those with ongoing risk factors. Amos Inquiry Pt receiving controlled substance: No Vital Signs: 10/05/24 20:00 10/05/24 20:15 10/05/24 20:18 Temperature 97.4 F L Temperature Source Oral Pulse Rate 78 80 Pulse Rate [Left] 75 Respiratory Rate 16 Blood Pressure 132/105 H 153/96 H Blood Pressure [Right Arm] 153/96 H Blood Pressure Mean Blood Pressure Mean [Right Arm] 115 Blood Pressure Source [Right Arm] Automatic Cuff Blood Pressure Position [Right Arm] Supine 02 Sat by Pulse Oximetry 97 97 97 Oxygen Delivery Method Room Air 10/05/24 20:30 10/05/24 21:00 10/05/24 21:30 Temperature Temperature Source Pulse Rate 68 66 69 Pulse Rate [Left] Respiratory Rate Blood Pressure 139/104 H 135/79 158/107 H Blood Pressure [Right Arm] Blood Pressure Mean Blood Pressure Mean [Right Arm] Blood Pressure Source [Right Arm] Blood Pressure Position [Right Arm] 02 Sat by Pulse Oximetry 97 98 95 Oxygen Delivery Method 10/05/24 22:00 10/05/24 22:30 10/05/24 23:30 Temperature Temperature Source Pulse Rate 62 64 68 Pulse Rate [Left] Respiratory Rate Blood Pressure 119/78 146/96 H 140/92 H Blood Pressure [Right Arm] Blood Pressure Mean 112 Blood Pressure Mean [Right Arm] Blood Pressure Source [Right Arm] Blood Pressure Position [Right Arm] 02 Sat by Pulse Oximetry 94 L 98 95 Oxygen Delivery Method 10/06/24 00:00 10/06/24 00:30 10/06/24 01:00 Temperature Temperature Source Pulse Rate 68 80 72 Pulse Rate [Left] Respiratory Rate Blood Pressure 153/97 H 152/100 H 147/95 H Blood Pressure [Right Arm] Blood Pressure Mean Blood Pressure Mean [Right Arm] Blood Pressure Source [Right Arm] Blood Pressure Position [Right Arm] 02 Sat by Pulse Oximetry 95 91 L 95 Oxygen Delivery Method Room Air Room Air Lab Data Lab results reviewed: Yes I reviewed the patient's lab results. Lab Results 10/05/24 21:17: WBC 8.4, RBC 4.55, Hgb 11.9 L, Hct 36.6 L, MCV 80.4 L, MCH 26.2 L, MCHC 32.5, RDW 14.0, Plt Count 393, MPV 9.5, Neut % (Auto) 55.8, Lymph % (Auto) 34.6, [place] % (Auto) 5.9, Eos % (Auto) 2.9, Baso % (Auto) 0.6, Neut # (Auto) 4.7, Lymph # (Auto) 2.9, [place] # (Auto) 0.5, Eos # (Auto) 0.2, Baso # (Auto) 0.1, ESR 20, Sodium 140, Potassium 3.2 L, Chloride 109 H, Carbon Dioxide 25, Anion Gap 9.2, BUN 7, Creatinine 0.60, Estimated GFR 100, Est GFR ( Amer) 121, Glucose 111 H, Calcium 9.4, Total Bilirubin 0.4, AST 20, ALT 12, Alkaline Phosphatase 104, C-Reactive Protein 1.5, Total Protein 7.0, Albumin 4.3, Globulin 2.7, Albumin/Globulin Ratio 1.6 10/05/24 22:45: Fluid Source Synovial, Fluid Volume 25, Fluid Appearance Slightly bloody, Fluid RBC (Auto) < 2000, Fld Tot Nucleated Cell 450, Fld Polynuclear WBCs % 25, Fld Mononuclear WBCs % 75 10/05/24 21:17 10/05/24 21:17 Orders (Tests/Meds): ED MEDICATIONS Discontinued Medications Generic Name Dose Route Start Last Admin Trade Name Freq PRN Reason Stop Dose Admin Acetaminophen 1,000 mg 10/05/24 20:43 10/05/24 21:15 Acetaminophen 500mg Tab PO 10/05/24 20:44 1,000 mg ONCE ONE Administration Ibuprofen 800 mg 10/05/24 21:08 10/05/24 21:15 Ibuprofen 400 Mg Tablet PO 10/05/24 21:09 800 mg ONCE ONE Administration Lidocaine HCl 10 ml 10/05/24 22:19 10/05/24 22:19 Lidocaine 1% 10ml Mdv SUBCUT 10/05/24 22:20 10 ml ONCE ONE Administration Prednisone 60 mg 10/05/24 21:08 10/05/24 21:14 Prednisone 20mg Tab PO 10/05/24 21:09 60 mg ONCE ONE Administration ORDERS Category Date Time Status Knee XR right 3 views [XR knee RT 3V] Stat Exams 10/05/24 20:10 Completed POCUS Point of Care (ER Only) Stat Exams 10/05/24 22:19 Completed Body Fluid: Cell Count w/ Diff Stat Lab 10/05/24 22:45 Completed CBC w/Auto Diff [Complete Blood Count Auto Diff] Stat Lab 10/05/24 21:17 Completed CMP [Comprehensive Metabolic Panel] Stat Lab 10/05/24 21:17 Completed CRP [C-Reactive Protein] Stat Lab 10/05/24 21:17 Completed ESR [Erythrocyte Sedimentation Rate] Stat Lab 10/05/24 21:17 Completed Body Fluid Cult & Gram Stain Stat Micro 10/05/24 22:45 Received Medical Decision Narrative: In summary patient is a 63-year-old female who presents to the emergency department for evaluation of atraumatic right knee pain. Patient is hemodynamically stable but has a blood pressure of 132/105 breathing 16 times a minute breathing satting at 97% on room air upon arrival, afebrile at 97.4. Physical exam is remarkable for bilateral suprapatellar joint fullness and tenderness to palpation however there is no erythema edema induration. Patient can range of motion although it is painful. I do feel a little bit of crepitus in the joint on range of motion. She is neurovascular intact distally.. Differential diagnosis includes joint effusion versus arthritis versus septic joint etc. Initial workup will be conducted with hematologic labs plain film x- ray. Initial interventions include Tylenol ibuprofen prednisone. Initial workup reviewed by me and my informal interpretation of her imaging shows no acute processes prior to radiology read. Please see final read for formal interpretation. Hematologic labs show normal white count normal H&H no neutrophilic shift sed rate is 20 the remainder of her hematologic labs are nonactionable CRP is 1.5. Upon repeat evaluation patient still reports pain given this we have ordered a POCUS with arthrocentesis. Care transition to oncoming provider while results of arthrocentesis pending at 2300 hrs. <Vicente Pak MD - Last Filed: 10/05/24 23:00> Vital Signs: 10/05/24 20:00 10/05/24 20:15 10/05/24 20:18 Temperature 97.4 F L Temperature Source Oral Pulse Rate 78 80 Pulse Rate [Left] 75 Respiratory Rate 16 Blood Pressure 132/105 H 153/96 H Blood Pressure [Right Arm] 153/96 H Blood Pressure Mean Blood Pressure Mean [Right Arm] 115 Blood Pressure Source [Right Arm] Automatic Cuff Blood Pressure Position [Right Arm] Supine 02 Sat by Pulse Oximetry 97 97 97 Oxygen Delivery Method Room Air 10/05/24 20:30 10/05/24 21:00 10/05/24 21:30 Temperature Temperature Source Pulse Rate 68 66 69 Pulse Rate [Left] Respiratory Rate Blood Pressure 139/104 H 135/79 158/107 H Blood Pressure [Right Arm] Blood Pressure Mean Blood Pressure Mean [Right Arm] Blood Pressure Source [Right Arm] Blood Pressure Position [Right Arm] 02 Sat by Pulse Oximetry 97 98 95 Oxygen Delivery Method 10/05/24 22:00 10/05/24 22:30 10/05/24 23:30 Temperature Temperature Source Pulse Rate 62 64 68 Pulse Rate [Left] Respiratory Rate Blood Pressure 119/78 146/96 H 140/92 H Blood Pressure [Right Arm] Blood Pressure Mean 112 Blood Pressure Mean [Right Arm] Blood Pressure Source [Right Arm] Blood Pressure Position [Right Arm] 02 Sat by Pulse Oximetry 94 L 98 95 Oxygen Delivery Method 10/06/24 00:00 10/06/24 00:30 10/06/24 01:00 Temperature Temperature Source Pulse Rate 68 80 72 Pulse Rate [Left] Respiratory Rate Blood Pressure 153/97 H 152/100 H 147/95 H Blood Pressure [Right Arm] Blood Pressure Mean Blood Pressure Mean [Right Arm] Blood Pressure Source [Right Arm] Blood Pressure Position [Right Arm] 02 Sat by Pulse Oximetry 95 91 L 95 Oxygen Delivery Method Room Air Room Air Lab Data Lab Results 10/05/24 21:17: WBC 8.4, RBC 4.55, Hgb 11.9 L, Hct 36.6 L, MCV 80.4 L, MCH 26.2 L, MCHC 32.5, RDW 14.0, Plt Count 393, MPV 9.5, Neut % (Auto) 55.8, Lymph % (Auto) 34.6, [place] % (Auto) 5.9, Eos % (Auto) 2.9, Baso % (Auto) 0.6, Neut # (Auto) 4.7, Lymph # (Auto) 2.9, [place] # (Auto) 0.5, Eos # (Auto) 0.2, Baso # (Auto) 0.1, ESR 20, Sodium 140, Potassium 3.2 L, Chloride 109 H, Carbon Dioxide 25, Anion Gap 9.2, BUN 7, Creatinine 0.60, Estimated GFR 100, Est GFR ( Amer) 121, Glucose 111 H, Calcium 9.4, Total Bilirubin 0.4, AST 20, ALT 12, Alkaline Phosphatase 104, C-Reactive Protein 1.5, Total Protein 7.0, Albumin 4.3, Globulin 2.7, Albumin/Globulin Ratio 1.6 10/05/24 22:45: Fluid Source Synovial, Fluid Volume 25, Fluid Appearance Slightly bloody, Fluid RBC (Auto) < 2000, Fld Tot Nucleated Cell 450, Fld Polynuclear WBCs % 25, Fld Mononuclear WBCs % 75 Orders (Tests/Meds): ED MEDICATIONS Discontinued Medications Generic Name Dose Route Start Last Admin Trade Name Verna PRN Reason Stop Dose Admin Acetaminophen 1,000 mg 10/05/24 20:43 10/05/24 21:15 Acetaminophen 500mg Tab PO 10/05/24 20:44 1,000 mg ONCE ONE Administration Ibuprofen 800 mg 10/05/24 21:08 10/05/24 21:15 Ibuprofen 400 Mg Tablet PO 10/05/24 21:09 800 mg ONCE ONE Administration Lidocaine HCl 10 ml 10/05/24 22:19 10/05/24 22:19 Lidocaine 1% 10ml Mdv SUBCUT 10/05/24 22:20 10 ml ONCE ONE Administration Prednisone 60 mg 10/05/24 21:08 10/05/24 21:14 Prednisone 20mg Tab PO 10/05/24 21:09 60 mg ONCE ONE Administration ORDERS Category Date Time Status Knee XR right 3 views [XR knee RT 3V] Stat Exams 10/05/24 20:10 Completed POCUS Point of Care (ER Only) Stat Exams 10/05/24 22:19 Completed Body Fluid: Cell Count w/ Diff Stat Lab 10/05/24 22:45 Completed CBC w/Auto Diff [Complete Blood Count Auto Diff] Stat Lab 10/05/24 21:17 Completed CMP [Comprehensive Metabolic Panel] Stat Lab 10/05/24 21:17 Completed CRP [C-Reactive Protein] Stat Lab 10/05/24 21:17 Completed ESR [Erythrocyte Sedimentation Rate] Stat Lab 10/05/24 21:17 Completed Body Fluid Cult & Gram Stain Stat Micro 10/05/24 22:45 Received Medical Decision Narrative: In summary patient is a 63-year-old female who presents to the emergency department for evaluation of atraumatic right knee pain. Patient is hemodynamically stable but has a blood pressure of 132/105 breathing 16 times a minute breathing satting at 97% on room air upon arrival, afebrile at 97.4. Physical exam is remarkable for bilateral suprapatellar joint fullness and tenderness to palpation however there is no erythema edema induration. Patient can range of motion although it is painful. I do feel a little bit of crepitus in the joint on range of motion. She is neurovascular intact distally.. Differential diagnosis includes joint effusion versus arthritis versus septic joint etc. Initial workup will be conducted with hematologic labs plain film x- ray. Initial interventions include Tylenol ibuprofen prednisone. Initial workup reviewed by me and my informal interpretation of her imaging shows no acute processes prior to radiology read. Please see final read for formal interpretation. Hematologic labs show normal white count normal H&H no neutrophilic shift sed rate is 20 the remainder of her hematologic labs are nonactionable CRP is 1.5. Upon repeat evaluation patient still reports pain given this we have ordered a POCUS with arthrocentesis. Care transition to oncoming provider while results of arthrocentesis pending at 2300 hrs. Vicente Pak: Procedure was performed by me, procedure performed was arthrocentesis. Consent was obtained prior to procedure. Patient was numbed with 1% lidocaine approximately 7 cc with partial effect. Sterile technique was used and 3 inch 18-gauge spinal needle was advanced until cloudy red-tinged fluid was aspirated from the right knee using the superior lateral approach at 10:00. Approximately 20 cc was removed and placed in a sterile specimen cup and labeled. Knee was dressed. Patient tolerated procedure well. Results of arthrocentesis are pending at time of transition of care to the oncoming physician, Dr. Bond. <Diana Bond MD - Last Filed: 10/06/24 01:41> Vital Signs: 10/05/24 20:00 10/05/24 20:15 10/05/24 20:18 Temperature 97.4 F L Temperature Source Oral Pulse Rate 78 80 Pulse Rate [Left] 75 Respiratory Rate 16 Blood Pressure 132/105 H 153/96 H Blood Pressure [Right Arm] 153/96 H Blood Pressure Mean Blood Pressure Mean [Right Arm] 115 Blood Pressure Source [Right Arm] Automatic Cuff Blood Pressure Position [Right Arm] Supine 02 Sat by Pulse Oximetry 97 97 97 Oxygen Delivery Method Room Air 10/05/24 20:30 10/05/24 21:00 10/05/24 21:30 Temperature Temperature Source Pulse Rate 68 66 69 Pulse Rate [Left] Respiratory Rate Blood Pressure 139/104 H 135/79 158/107 H Blood Pressure [Right Arm] Blood Pressure Mean Blood Pressure Mean [Right Arm] Blood Pressure Source [Right Arm] Blood Pressure Position [Right Arm] 02 Sat by Pulse Oximetry 97 98 95 Oxygen Delivery Method 10/05/24 22:00 10/05/24 22:30 10/05/24 23:30 Temperature Temperature Source Pulse Rate 62 64 68 Pulse Rate [Left] Respiratory Rate Blood Pressure 119/78 146/96 H 140/92 H Blood Pressure [Right Arm] Blood Pressure Mean 112 Blood Pressure Mean [Right Arm] Blood Pressure Source [Right Arm] Blood Pressure Position [Right Arm] 02 Sat by Pulse Oximetry 94 L 98 95 Oxygen Delivery Method 10/06/24 00:00 10/06/24 00:30 10/06/24 01:00 Temperature Temperature Source Pulse Rate 68 80 72 Pulse Rate [Left] Respiratory Rate Blood Pressure 153/97 H 152/100 H 147/95 H Blood Pressure [Right Arm] Blood Pressure Mean Blood Pressure Mean [Right Arm] Blood Pressure Source [Right Arm] Blood Pressure Position [Right Arm] 02 Sat by Pulse Oximetry 95 91 L 95 Oxygen Delivery Method Room Air Room Air Lab Data Lab Results 10/05/24 21:17: WBC 8.4, RBC 4.55, Hgb 11.9 L, Hct 36.6 L, MCV 80.4 L, MCH 26.2 L, MCHC 32.5, RDW 14.0, Plt Count 393, MPV 9.5, Neut % (Auto) 55.8, Lymph % (Auto) 34.6, [place] % (Auto) 5.9, Eos % (Auto) 2.9, Baso % (Auto) 0.6, Neut # (Auto) 4.7, Lymph # (Auto) 2.9, [place] # (Auto) 0.5, Eos # (Auto) 0.2, Baso # (Auto) 0.1, ESR 20, Sodium 140, Potassium 3.2 L, Chloride 109 H, Carbon Dioxide 25, Anion Gap 9.2, BUN 7, Creatinine 0.60, Estimated GFR 100, Est GFR ( Amer) 121, Glucose 111 H, Calcium 9.4, Total Bilirubin 0.4, AST 20, ALT 12, Alkaline Phosphatase 104, C-Reactive Protein 1.5, Total Protein 7.0, Albumin 4.3, Globulin 2.7, Albumin/Globulin Ratio 1.6 10/05/24 22:45: Fluid Source Synovial, Fluid Volume 25, Fluid Appearance Slightly bloody, Fluid RBC (Auto) < 2000, Fld Tot Nucleated Cell 450, Fld Polynuclear WBCs % 25, Fld Mononuclear WBCs % 75 Orders (Tests/Meds): ED MEDICATIONS Discontinued Medications Generic Name Dose Route Start Last Admin Trade Name Freq PRN Reason Stop Dose Admin Acetaminophen 1,000 mg 10/05/24 20:43 10/05/24 21:15 Acetaminophen 500mg Tab PO 10/05/24 20:44 1,000 mg ONCE ONE Administration Ibuprofen 800 mg 10/05/24 21:08 10/05/24 21:15 Ibuprofen 400 Mg Tablet PO 10/05/24 21:09 800 mg ONCE ONE Administration Lidocaine HCl 10 ml 10/05/24 22:19 10/05/24 22:19 Lidocaine 1% 10ml Mdv SUBCUT 10/05/24 22:20 10 ml ONCE ONE Administration Prednisone 60 mg 10/05/24 21:08 10/05/24 21:14 Prednisone 20mg Tab PO 10/05/24 21:09 60 mg ONCE ONE Administration ORDERS Category Date Time Status Knee XR right 3 views [XR knee RT 3V] Stat Exams 10/05/24 20:10 Completed POCUS Point of Care (ER Only) Stat Exams 10/05/24 22:19 Completed Body Fluid: Cell Count w/ Diff Stat Lab 10/05/24 22:45 Completed CBC w/Auto Diff [Complete Blood Count Auto Diff] Stat Lab 10/05/24 21:17 Completed CMP [Comprehensive Metabolic Panel] Stat Lab 10/05/24 21:17 Completed CRP [C-Reactive Protein] Stat Lab 10/05/24 21:17 Completed ESR [Erythrocyte Sedimentation Rate] Stat Lab 10/05/24 21:17 Completed Body Fluid Cult & Gram Stain Stat Micro 10/05/24 22:45 Received Medical Decision Narrative: In summary patient is a 63-year-old female who presents to the emergency department for evaluation of atraumatic right knee pain. Patient is hemodynamically stable but has a blood pressure of 132/105 breathing 16 times a minute breathing satting at 97% on room air upon arrival, afebrile at 97.4. Physical exam is remarkable for bilateral suprapatellar joint fullness and tenderness to palpation however there is no erythema edema induration. Patient can range of motion although it is painful. I do feel a little bit of crepitus in the joint on range of motion. She is neurovascular intact distally.. Differential diagnosis includes joint effusion versus arthritis versus septic joint etc. Initial workup will be conducted with hematologic labs plain film x- ray. Initial interventions include Tylenol ibuprofen prednisone. Initial workup reviewed by me and my informal interpretation of her imaging shows no acute processes prior to radiology read. Please see final read for formal interpretation. Hematologic labs show normal white count normal H&H no neutrophilic shift sed rate is 20 the remainder of her hematologic labs are nonactionable CRP is 1.5. Upon repeat evaluation patient still reports pain given this we have ordered a POCUS with arthrocentesis. Care transition to oncoming provider while results of arthrocentesis pending at 2300 hrs. Vicente Pak: Procedure was performed by me, procedure performed was arthrocentesis. Consent was obtained prior to procedure. Patient was numbed with 1% lidocaine approximately 7 cc with partial effect. Sterile technique was used and 3 inch 18-gauge spinal needle was advanced until cloudy red-tinged fluid was aspirated from the right knee using the superior lateral approach at 10:00. Approximately 20 cc was removed and placed in a sterile specimen cup and labeled. Knee was dressed. Patient tolerated procedure well. Results of arthrocentesis are pending at time of transition of care to the oncoming physician, Dr. Bond. Bond: Upon my assumption of care patient is stable, resting comfortably. I agree with the assessment and plan from Dr. Pak. I reviewed x-ray which is reassuring against acute osseous injury. Labs demonstrate no leukocytosis, mild anemia, normal platelets, reassuring ESR at 20, CMP not acutely actionable. Synovial fluid labs were pending at the time my assumption of care. When they resulted patient has less than 2000 RBCs and only 450 total nucleated cells. This is significantly reassuring against septic arthritis and gout. Reactive arthritis including gout would typically have WBC greater than 2000. We called lab to find out when the synovial fluid crystals would result and they stated they could not run them here. There has been a new policy change where this is not truly the case. There is not availability to take the sample by medical professionals to , but I am extremely reassured against reactive arthritis based on patient's cell count. I do not believe the crystal analysis would micro[employer] exchange administrator at this time. Therefore patient is appropriate for discharge. She states she does not have the previously prescribed diclofenac at home anymore so I instructed her to take Tylenol and ibuprofen. She is ambulatory on the knee and would prefer to not use crutches because they hurt her hands. I believe this is reasonable. Patient was given instructions on symptomatic management, follow up instructions, and return precautions for the emergency department. Patient indicated understanding and was discharged in stable condition. Critical Care <NICKI Pan - Last Filed: 10/05/24 22:23> Critical Care Time Critical Care Time: No
--- NOTE | 2024-10-05 20:10 | XR_ITS ---
PROCEDURE INFORMATION: Exam: XR Right Knee Exam date and time: 10/05/2024 8:31 PM Age: 63 years old Clinical indication: Pain; Knee; Right; Additional info: Right knee pain and swelling TECHNIQUE: Imaging protocol: Radiologic exam of the right knee. Views: 3 views. COMPARISON: CR XR KNEE RT 3V 07/28/2024 6:06 PM FINDINGS: Bones/joints: Normal. Soft tissues: Normal. IMPRESSION: No acute findings.
[2024-10-05] MEDS: predniSONE 20MG TAB 60 MG PO (21:14)
[2024-10-05] MEDS: ACETAMINOPHEN 500MG TAB 1000 MG PO (21:15)
[2024-10-05] MEDS: IBUPROFEN 400 MG TABLET 800 MG PO (21:15)
[2024-10-05 21:26] LABS: Basophils # 0.1 K/mm3 (0-0.2); Basophils % 0.6 % (0.1-2.0); Eosinophils # 0.2 Kmm3 (0.0-0.4); Eosinophils % 2.9 % (0.1-12.0); Hematocrit 36.6 % (37.0-47.0); Hemoglobin 11.9 g/dL (12.2-16.2); Immature Granulocytes # 0.02 10^3uL; Immature Granulocytes % 0.2 %; Lymphocytes # 2.9 K/mm3 (0.7-4.5); Lymphocytes % 34.6 % (10-50); Mean Corpuscular HGB Conc 32.5 g/dL (31.8-35.4); Mean Corpuscular Hemoglobin 26.2 pg (27.0-31.2); Mean Corpuscular Volume 80.4 fl (81-99); Mean Platelet Volume 9.5 fl (7.4-10.4); Monocytes # 0.5 K/mm3 (0.1-1.0); Monocytes % 5.9 % (1.7-9.3); Neutrophils # 4.7 K/mm3 (1.8-7.8); Neutrophils % 55.8 % (37.0-80.0); Nucleated Red Blood Cells # 0 10^3/uL; Nucleated Red Blood Cells % 0 %; Platelet Count 393 K/mm3 (142-424); Red Blood Count 4.55 M/mm3 (4.20-5.40); Red Cell Distribution Width-SD 40.7 fL; White Blood Count 8.4 K/mm3 (4.8-10.8)
[2024-10-05 21:36] LABS: Albumin Level 4.3 g/dl (3.5-5.0); Chloride 109 mmol/L (98-107); Potassium 3.2 mmoL/L (3.5-5.1); Sodium 140 mmol/L (136-145)
[2024-10-05 21:39] LABS: Alanine Aminotransferase 12 U/L (12-78); Albumin/Globulin Ratio 1.6 (1.1-1.8); Alkaline Phosphatase 104 U/L (38-126); Anion Gap 9.2 mEq/L (5-15); Aspartate Amino Transferase 20 U/L (14-36); Bilirubin,Total 0.4 mg/dl (0.2-1.3); Blood Urea Nitrogen 7 mg/dl (7-17); Carbon Dioxide 25 mmol/L (22.0-30.0); Estimated Glomerular Filt Rate 100 ml/min (>60); GFR (African American) 121 ML/MIN (>60); Globulin 2.7 g/dL (1.3-3.2)
[2024-10-05 21:40] LABS: Calcium 9.4 mg/dl (8.4-10.2); Glucose 111 mg/dl (74-100)
[2024-10-05 21:45] LABS: C-Reactive Protein 1.5 mg/L (0-4)
[2024-10-05 22:06] LABS: Erythrocyte Sedimentation Rate 20 mm/hr (0-30)
[2024-10-05] MEDS: LIDOCAINE 1% 10ML MDV 10 ML SUBCUT (22:19)
[2024-10-05 23:55] LABS: Source, Body Fld. Synovial; TNC,Body Fluid 450 cells/uL (< 1000); Volume,Body Fld. 25 mL
[2024-10-06] VITALS: BP 153/97; PULSE 68; O2SAT 95
[2024-10-06 00:30] VITALS: BP 152/100; PULSE 80; O2SAT 91
--- NOTE | 2024-10-06 00:59 | PC.NURSE ---
called lab at 0052 regarding crystals and was informed this is a send out test.
[2024-10-06 01:00] VITALS: BP 147/95; PULSE 72; O2SAT 95
[2024-10-06 01:04] LABS: Mononuclear WBCs,Body Fluid 75 %; Polynuclear WBC,Body Fluid 25 %
[2024-10-06 01:30] VITALS: BP 154/95; PULSE 95; O2SAT 95
[2024-10-06 01:43] VITALS: BP 154/95; PULSE 65; RESP 20; TEMP 36.6; O2SAT 98
[2024-10-06 08:47] LABS: Monosodium Urate Absent
[2024-10-06 08:48] LABS: Ca pyrophosphate dihyd Absent
[2024-10-11 15:02] LABS: RBC,Body Fluid 68000 cells/uL (< 10 X 10^3)
== END 2024-10-06 01:45 | disposition home or self-care (01) ==
PROVIDERS: Physician Assistant; Emergency Provider Emergency Medicine; PCP Family Medicine
DX: M25.561 Pain in right knee (principal); I10 Essential (primary) hypertension; E78.5 Hyperlipidemia, unspecified; F17.210 Nicotine dependence, cigarettes, uncomplicated
CPT/HCPCS: 20610; 36415; 73562; 80053; 85025; 85651; 86140; 87070; 87205; 89051; 89060; 99284; J2003